=== PATIENT | male | born 1960 | race Caucasian/White ===

== ENCOUNTER 2016-10-05 00:13 | Emergency (ER) | payer OTHER ==
[~2016-10-05] VITALS: Ht 177.8 cm; Wt 110.9 kg
[2016-10-05 00:15] VITALS: BP 138/85; TEMP 36.3; O2SAT 95; Ht 177.8 cm; Wt 110.9 kg
--- NOTE | 2016-10-05 00:47 | EMERGENCY ROOM VISIT NOTE ---
History Report prepared by Heather: Gregg Combs Under the Supervision of: Dr. Chung Rajan M.D. First contact with patient: 00:17 Chief Complaint: ALCOHOL OVERDOSE Stated Complaint: ALCOHOL OVERDOSE History of Present Illness The patient is a 55 year old male who presents to the Emergency Room with complaints of constant alcohol overdose occurring prior to arrival. The patient was at [employer] earlier drinking alcohol, and he was intoxicated, and they called the police. They did not take him to [facility], and they took him to the ED since he did not have a ride home. He states that he does not have any family close by. He states that he has a history of hypertension, and he takes lisinopril. Additionally he occasionally smokes a pipe. History is limited secondary to alcohol intoxication. Source of History: patient History Limited By: intoxication Onset: prior to arrival Position: other (global) Quality: other (alcohol intoxication) Timing: constant Review of Systems See HPI for pertinent positives & negatives. A total of 10 systems reviewed and were otherwise negative. Past Medical & Surgical Medical Problems: (1) Hypertension Social History Smoking Status: Light Tobacco Smoker Marital Status: Occupation Status: employed Current/Historical Medications No Active Prescriptions or Reported Meds Allergies Coded Allergies: No Known Allergies (Unverified , 10/05/16) Physical Exam Vital Signs Date Time Temp Pulse Resp B/P (MAP) Pulse Ox O2 Delivery O2 Flow Rate FiO2 10/05/16 01:15 109 10/05/16 00:15 36.3 102 20 138/85 95 Room Air Physical Exam GENERAL: Patient is moderately intoxicated. Smells of alcohol. Well appearing and in no acute distress. HEAD: No evidence of Trauma. AT/NC EYES: Injected conjunctiva. Normal EOM. Pupils equal/reactive. ENT: Mucous membranes moist, no nasal congestion, . NECK: No step-offs, no adenopathy, no meningismus, trachea is midline. LUNGS: No dyspnea. Clear to auscultation and equal bilaterally. No wheeze, no rhonchi. HEART: Regular rate and rhythm. No murmurs, rubs, gallops appreciated. ABDOMEN: Soft, nontender, bowel sounds positive, no masses appreciated, no peritonitis. BACK: No midline tenderness, no CVA tenderness EXTREMITIES: Normal motion all extremities, no cyanosis, no edema. NEUROLOGIC: Intoxicated. Alert, oriented nut slurred speech and poor memory of the night's events. No acute motor or sensory deficits, no focal weakness, cranial nerves grossly intact. SKIN: No rash, no jaundice, no diaphoresis. Medical Decision & Procedures Laboratory Results 10/05/16 00:28 Test 10/05/16 00:28 Anion Gap 8.0 mmol/L (3-11) Est Creatinine Clear Calc Drug Dose 127.0 ml/min Estimated GFR () 115.1 Estimated GFR (Non- 99.4 BUN/Creatinine Ratio 6.8 (10-20) Calcium Level 8.3 mg/dl (8.5-10.1) Ethyl Alcohol mg/dL 374.0 mg/dl (0-3) Laboratory results as reviewed by me. ED Course 0017: The patient was evaluated in room A2. A complete history and physical exam was performed. 0114: I reevaluated the patient, and he has a sober friend there who wishes to take the patient home. The patient will be discharged home. Medical Decision Differential: Alcohol Intoxication, Drug Intoxication, Electrolyte Abnormality, Trauma, Intracranial Event, Toxicological, Excited Delirium, Serotonin Syndrome , amongst other pathologies entertained. 55 yr old intoxicated male brought in by EMS after being intoxicated at local bar. Patient with no evidence nor history for trauma. Protecting airway and breathing comfortably throughout ED stay. EtOH positive. He is too intoxicated to take taxi home per ED protocol. His friend Kraig arrived who appeared sober and accepted resposibility for Mr Nath. He was very much aware that Mr Nath was intoxicated and that his alcohol level is too high to operate a vehicle. He states he will take him home and have him go to bed. I made very clear to him (in front of nursing) patient is not to be driving. Medication Reconcilliation Current Medication List: was personally reviewed by me Blood Pressure Screening Patient's blood pressure: Elevated blood pressure (mild) Blood pressure disposition: Did not require urgent referral Impression Primary Impression: Alcohol abuse Additional Impression: Alcohol intoxication Scribe Attestation The scribe's documentation has been prepared under my direction and personally reviewed by me in its entirety. I confirm that the note above accurately reflects all work, treatment, procedures, and medical decision making performed by me. Departure Information Dispostion Home / Self-Care Prescriptions No Active Prescriptions or Reported Meds Forms HOME CARE DOCUMENTATION FORM, IMPORTANT VISIT INFORMATION Patient Instructions Alcohol Intoxication - [facility], [facility] Problem Qualifiers
[2016-10-05 01:11] LABS: BUN/CREATININE RATIO 6.8 (10-20); CALCIUM 8.3 mg/dl (8.5-10.1); CREATININE 0.81 mg/dl (0.60-1.40); POTASSIUM 3.4 mmol/L (3.5-5.1)
[2016-10-05 01:15] VITALS: PULSE 109
== END 2016-10-05 01:18 | disposition home or self-care (01) ==
LOC: EDBD 00:13 → C.EDA 00:16
DX: F10.129 Alcohol abuse with intoxication, unspecified (principal); Y90.9 Presence of alcohol in blood, level not specified; I10 Essential (primary) hypertension; F17.200 Nicotine dependence, unspecified, uncomplicated

== ENCOUNTER → 2016-10-05 | Outpatient (CLI) | payer OTHER | END | disposition home or self-care (01) | LOC: C.LAB 02:24 | DX: Z02.83 Encounter for blood-alcohol and blood-drug test (principal) ==

== ENCOUNTER 2019-10-04 00:23 | Inpatient (IN) ==
[2019-10-04] MEDS ORDERED: PANTOprazole 40 MG in SYRINGE 0 ML IV ONE (00:44)
--- NOTE | 2019-10-04 00:51 | Emergency Department Note ---
History of Present Illness General Chief complaint: Abdominal Pain Stated complaint: STOMACH ISSUES Time Seen by Provider: 10/04/19 00:31 Source: patient Mode of arrival: ambulatory Limitations: no limitations History of Present Illness Provider complaint: black stool, heartburn Onset (ago): day(s) 1 Severity: moderate Pain Consistency: + constant Quality: + burning Relieved By: + none Exacerbated By: + none Associated symptoms: + loss of appetite; no chest pain, no fever/chills, no nausea/vomiting and no shortness of breath Treatments prior to arrival: none This is a 58-year-old male who presents from home due to concern for a black stool earlier this morning and "bad heartburn". Patient states last night he ate very hot wings, and had a little bit of mild heartburn. He states today he had burning throughout his abdomen. Throughout the day he took 2 Tagamet, as he has used that previously with heartburn. Patient states he did not have any heartburn up into his chest, had no other chest pain or trouble breathing, that all the burning was in his abdomen. Patient states his stool this morning was loose and black, no bright red blood. Patient denies any prior GI history. Patient denies ever having EGD or colonoscopy. Patient denies any recent illness, no fevers or chills. Patient denies any accompanying nausea or vomiting. Patient states he did have a fall 2 weeks ago and has been using [id number] Advil to help for pain. Patient states he occasionally does drink alcohol, states he typically saves it for "the weekends". Pt seen during a time of high acuity and national emergency pandemic while wearing PPE. Home Medications Home Medications Medication Instructions Recorded Confirmed Type No Known Home Medications 10/04/19 10/04/19 History Allergies Allergy/AdvReac Type Severity Reaction Status Date / Time No Known Allergies Allergy Unverified 10/04/19 00:46 Past Med/Surg History Social History Smoking Status: Unknown if ever smoked Hx Alcohol Use: Yes Alcohol type: beer Hx Substance Use: No Preferred Language: Grenadian Communication Ability: Effective Preparation Operator Required: No Beliefs That Will Affect Care: None marital status: / Current Living Situation: Alone Feels Safe at Home: Yes Review of Systems See HPI for pertinent positives & negatives. and A total of 10 systems reviewed and were otherwise negative Physical Exam Vital Signs Vital Signs - 24 hr 10/04/19 00:26 10/04/19 01:04 10/04/19 02:11 Temperature 36.9 C Temperature Source Oral Pulse Rate 114 H Pulse Rate [Apical] 101 H 101 H Respiratory Rate 18 18 14 Respiratory Effort / Characteristics Non-Labored Spontaneous Respiratory Depth Normal Blood Pressure 177/102 H Blood Pressure [Left Arm] 188/91 H 189/87 H Blood Pressure Mean 127 Blood Pressure Mean [Left Arm] 123 121 Blood Pressure Position Sitting Pulse Oximetry 99 97 98 Oxygen Delivery Method Room Air Room Air Room Air Sepsis Recent Fever Within 48 Hours No Sepsis New/Unexplained Change in Mental Status N/A Sepsis Action Taken by Nursing No Action Required GENERAL: alert, well appearing, well nourished, no distress, non-toxic EYE EXAM: normal conjunctiva, PERRL and EOM's grossly intact OROPHARYNX: no exudate, no erythema, lips, buccal mucosa, and tongue normal and mucous membranes are moist NECK: supple, no nuchal rigidity, no adenopathy, non-tender LUNGS: Clear to auscultation. Normal chest wall mechanics, no w/r/r HEART: no murmurs, S1 normal and S2 normal ABDOMEN: abdomen soft, non-tender, normo-active bowel sounds, no masses, no rebound or guarding. Dull to percussion. Umbilical hernia noted, nontender and reducible. RECTAL: No obvious external hemorrhoids or anal fissure. Rectal exam performed with nurse program advisor Lisa, melanotic stool noted which was heme positive on guaiac testing. BACK: Back is symmetrical on inspection and there is no deformity, no midline tenderness, no CVA tenderness. SKIN: no rashes and no bruising UPPER EXTREMITIES: upper extremities are grossly normal. FROM, nml pulses b/l. LOWER EXTREMITIES: No pitting edema. FROM, nml pulses b/l. NEURO EXAM: Normal sensorium, cranial nerves II-XII grossly intact, normal speech, no gross weakness of arms, no gross weakness of legs. Gross sensation intact. Patient slightly tremulous. Course Course 0230: Patient updated on results. Discussed abnormalities and labs and imaging and my concerns. Patient in agreement with plan for additional inpatient treatment. 0255: Case discussed with Dr. Mead. Administered Medications Sodium Chloride (Nss 1000ml) 1,000 mls @ 200 mls/hr IV .Q5H RONI Stop: 11/03/19 00:44 Last Admin: 10/04/19 08:39 Dose: 200 mls/hr Documented by: [id number] Infusion: 10/04/19 06:29 Dose: 0 mls/hr Documented by: [id number] Admin: 10/04/19 01:03 Dose: 200 mls/hr Documented by: [id number] Pantoprazole Sodium 40 mg/ (Dextrose) 100 mls @ 20 mls/hr IV Q5H RONI Stop: 11/03/19 02:29 Last Admin: 10/04/19 08:17 Dose: 8 mg/hr, 20 mls/hr Documented by: [id number] Infusion: 10/04/19 08:17 Dose: 8 mg/hr, 20 mls/hr Documented by: [id number] Admin: 10/04/19 03:53 Dose: 8 mg/hr, 20 mls/hr Documented by: [id number] Octreotide Acetate 500 mcg/ (Sodium Chloride) 105 mls @ 10 mls/hr IV .[id number] RONI Stop: 11/03/19 03:14 Last Admin: 10/04/19 03:43 Dose: 10 mls/hr Documented by: [id number] Thiamine HCl 100 mg/ Syringe 10 mls @ 2 mls/min IV QAM RONI Stop: 11/03/19 08:59 Last Admin: 10/04/19 08:39 Dose: 2 mls/min Documented by: [id number] Folic Acid 1 mg/ Syringe 10 mls @ 5 mls/min IV QAM ON LICENSE OF [facility] Stop: 11/03/19 08:59 Last Admin: 10/04/19 08:39 Dose: 5 mls/min Documented by: [id number] Ioversol (Optiray 320 100ml) 100 ml IV ONCE PRN PRN Reason: Interaction Checking Stop: 10/08/19 01:53 Last Admin: 10/04/19 01:54 Dose: 93 ml Documented by: [id number] Discontinued Medications Pantoprazole Sodium 40 mg/ (Syringe) 10 mls @ 5 mls/min IV NOW ONE Stop: 10/04/19 00:45 Last Admin: 10/04/19 01:11 Dose: 5 mls/min Documented by: [id number] Magnesium Sulfate/Dextrose (Magnesium Sulfate / D5w) 1 gm in 100 mls @ 100 mls/hr IV Q1H RONI Stop: 10/04/19 03:39 Last Infusion: 10/04/19 04:57 Dose: 0 mls/hr Documented by: [id number] Admin: 10/04/19 03:33 Dose: 100 mls/hr Documented by: [id number] Infusion: 10/04/19 03:32 Dose: 0 mls/hr Documented by: [id number] Admin: 10/04/19 02:32 Dose: 100 mls/hr Documented by: [id number] Multivitamins 10 ml/ Thiamine HCl 100 mg/ Folic Acid 1 mg/Sodium Chloride 1,011.2 mls @ 250 mls/hr IV .Q4H3M ONE Stop: 10/04/19 06:26 Last Infusion: 10/04/19 08:40 Dose: 0 mls/hr Documented by: [id number] Admin: 10/04/19 03:50 Dose: 250 mls/hr Documented by: [id number] Lorazepam (Ativan) 0.5 mg in 1 mls @ 1 mls/min IV NOW STA Stop: 10/04/19 02:25 Last Admin: 10/04/19 02:33 Dose: 1 mls/min Documented by: [id number] Phytonadione 10 mg/ Sodium (Chloride) 51 mls @ 102 mls/hr IV ONE ONE Stop: 10/04/19 03:43 Last Infusion: 10/04/19 04:11 Dose: 0 mls/hr Documented by: [id number] Admin: 10/04/19 03:34 Dose: 102 mls/hr Documented by: [id number] Piperacillin Sod/Tazobactam (Sod 4.5 gm/ Dextrose) 120 mls @ 200 mls/hr IV TODAY@0600 ON LICENSE OF [facility]; Protocol Stop: 10/04/19 06:35 Last Infusion: 10/04/19 06:30 Dose: 0 mls/hr Documented by: [id number] Admin: 10/04/19 05:49 Dose: 200 mls/hr Documented by: [id number] Metoprolol Tartrate (Lopressor) 5 mg IV NOW STA Stop: 10/04/19 03:26 Last Admin: 10/04/19 03:36 Dose: 5 mg Documented by: [id number] Octreotide Acetate (Sandostatin Bolus From Bag) 100 mcg IV ONE ONE Stop: 10/04/19 03:16 Last Admin: 10/04/19 04:56 Dose: 100 mcg Documented by: [id number] Critical Care Time Critical Care Time: Yes Total Critical Care Time: 42 Critical care of 42 min performed to assess and manage high likelihood of life- threatening GI bleed, involving labs and imaging performed with assessment to evaluate GI bleed diagnosis with frequent reassessment. This time includes bed side time, treatment discussions with patient/family/consultants, documentation time and excludes procedure time. Medical Decision Making Differential Diagnosis Differential diagnosis includes etiologies such as diverticulosis, AVM, coagulopathy, colitis, inflammatory bowel disease, malignancy, Caridad-Calixto tear, esophagitis, peptic ulcer disease, variceal bleed, gastritis, epistaxis, fissure, hemorrhoids, as well as others were entertained. Medical Records Attestation: I reviewed the patient's medical records. Home Medications Current Medication List: was personally reviewed by me Laboratory Data Attestation: I reviewed the patient's lab results. Result diagrams: 10/04/19 04:43 10/04/19 00:48 Lab Results 10/04/19 10/04/19 10/04/19 Range/Units 00:48 00:48 00:48 WBC 16.34 H (4.8-10.8) K/uL RBC 3.44 L (4.7-6.1) M/uL Hgb 12.1 L (14.0-18.0) g/dL Hct 34.2 L (42-52) % MCV 99.4 (80-100) fL MCH 35.2 H (25-34) pg MCHC 35.4 (32-36) g/dL RDW Std Deviation 53.3 H (36.4-46.3) fL RDW Coeff of Aleah 14.7 H (11.5-14.5) % Plt Count 106 L (130-400) K/uL MPV 10.0 (7.4-10.4) fL Immature Gran % (Auto) 0.2 % Neut % (Auto) 70.9 % Lymph % (Auto) 16.8 % [place] % (Auto) 11.8 % Eos % (Auto) 0.1 % Baso % (Auto) 0.2 % Neut # (Auto) 11.58 H (1.4-6.5) K/uL Lymph # (Auto) 2.74 (1.2-3.4) K/uL [place] # (Auto) 1.93 H (0.11-0.59) K/uL Eos # (Auto) 0.02 (0-0.5) K/uL Baso # (Auto) 0.03 (0-0.2) K/uL Immature Gran # (Auto) 0.04 H (0.00-0.02) K/uL PT 18.4 H (9.0-12.0) Seconds INR 1.8 H (0.9-1.1) Sodium (136-145) mmol/L Potassium (3.5-5.1) mmol/L Chloride (98-107) mmol/L Carbon Dioxide (21-32) mmol/L Anion Gap (3-11) BUN (7-18) mg/dl Creatinine (0.6-1.4) mg/dl Est Cr Clr Drug Dosing ml/min Est GFR ( Amer) Est GFR (Non-Af Amer) BUN/Creatinine Ratio (10-20) Glucose (70-99) mg/dl Osmolality (280-300) mOsm/kg Lactate (0.4-2.0) mmol/L Calcium (8.5-10.1) mg/dl Magnesium (1.8-2.4) mg/dl Total Bilirubin (0.2-1) mg/dl AST (15-37) U/L ALT (12-78) U/L Alkaline Phosphatase (45-117) U/L Troponin I (0-0.045) ng/ml Total Protein (6.4-8.2) gm/dl Albumin (3.4-5.0) gm/dl Globulin (2.5-4.0) gm/dl Albumin/Globulin Ratio (0.9-2) Lipase (73-393) U/L Blood Type O Positive Antibody Screen NEGATIVE 10/04/19 10/04/19 10/04/19 Range/Units 00:48 00:48 00:49 WBC (4.8-10.8) K/uL RBC (4.7-6.1) M/uL Hgb (14.0-18.0) g/dL Hct (42-52) % MCV (80-100) fL MCH (25-34) pg MCHC (32-36) g/dL RDW Std Deviation (36.4-46.3) fL RDW Coeff of Aleah (11.5-14.5) % Plt Count (130-400) K/uL MPV (7.4-10.4) fL Immature Gran % (Auto) % Neut % (Auto) % Lymph % (Auto) % [place] % (Auto) % Eos % (Auto) % Baso % (Auto) % Neut # (Auto) (1.4-6.5) K/uL Lymph # (Auto) (1.2-3.4) K/uL [place] # (Auto) (0.11-0.59) K/uL Eos # (Auto) (0-0.5) K/uL Baso # (Auto) (0-0.2) K/uL Immature Gran # (Auto) (0.00-0.02) K/uL PT (9.0-12.0) Seconds INR (0.9-1.1) Sodium 128 L (136-145) mmol/L Potassium 3.7 (3.5-5.1) mmol/L Chloride 95 L (98-107) mmol/L Carbon Dioxide 22 (21-32) mmol/L Anion Gap 11.0 (3-11) BUN 11 (7-18) mg/dl Creatinine 0.77 (0.6-1.4) mg/dl Est Cr Clr Drug Dosing 133.5 ml/min Est GFR ( Amer) 115.1 Est GFR (Non-Af Amer) 99.3 BUN/Creatinine Ratio 14.7 (10-20) Glucose 105 H (70-99) mg/dl Osmolality 267 L (280-300) mOsm/kg Lactate 3.7 H* (0.4-2.0) mmol/L Calcium 8.9 (8.5-10.1) mg/dl Magnesium 1.4 L (1.8-2.4) mg/dl Total Bilirubin 5.7 H (0.2-1) mg/dl AST 130 H (15-37) U/L ALT 73 (12-78) U/L Alkaline Phosphatase 130 H (45-117) U/L Troponin I 0.063 H* (0-0.045) ng/ml Total Protein 7.0 (6.4-8.2) gm/dl Albumin 2.6 L (3.4-5.0) gm/dl Globulin 4.4 H (2.5-4.0) gm/dl Albumin/Globulin Ratio 0.6 L (0.9-2) Lipase 64 L (73-393) U/L Blood Type Antibody Screen Imaging Data Radiologist's Impression: CT abdomen and pelvis with contrast: Lung bases: Left lower lobe anterior segment linear atelectasis and mild overlying the right hemidiaphragm. Mild left coronary calcification. Small hiatal hernia. Slightly heterogenous and perhaps cirrhotic appearance to the liver. Moderate surrounding ascites. Trace edema around the gallbladder wall may be secondary to underlying ascites. Negative for ductal dilatation. Moderate circumferential mucosal thickening of nondistended ascending colon. Consider hypoalbuminemia or colitis. Descending colon and sigmoid diverticulosis. Small periumbilical hernia with ascites extending into it. Radiologist: Gary Talbot MD ECG Data Attestation: I personally reviewed and interpreted this ECG as follows: Indication: + abdominal pain Rate (beats per minute): 103 Rhythm: + sinus tachycardia ECG Intervals/blocks: + Normal QRS and + Normal QT ECG ST segments: + Normal ST segments Blood Pressure Blood Pressure Findings: Elevated blood pressure Blood Pressure Disposition: further management by hospitalist SANDY Narrative Patient here with concern for possible GI bleed and recent abdominal discomfort. Patient found to have melanotic heme positive stool on bedside exam. Labs are drawn and sent including a type and screen, and lactic acid. Patient had no significant abdominal pain, heartburn or nausea during my exam. Patient able to answer all questions appropriately. Patient does admit to frequent alcohol use. I do not suspect acute alcohol intoxication while in the emergency room. Patient hypertensive here with her vital signs otherwise stable. H&H stable. Patient sent for CT imaging in addition. Patient found to be coagulopathic, thrombocytopenic, hyponatremic, with an elevated troponin. Patient's EKG did not reveal any acute or concerning changes and patient had no chest pain or shortness of breath during my evaluation. I suspect patient's lab abnormalities are likely due to ongoing alcohol abuse. Ascites and cirrhosis of the liver was noted on CT. Patient started on IV fluids, banana bag ordered, and additional magnesium repletion ordered. Patient initially given a Protonix bolus, and after additional labs resulted and was started on a Protonix drip. After discussion with the hospitalist, and octreotide drip was added in addition. An order was placed for continuous cardiac monitoring. The monitor shows a rate of 104 with sinus tachycardia rhythm. Impression & Plan GI bleed, Hypertension, Liver cirrhosis, Ascites due to alcoholic cirrhosis, Hypoalbuminemia, Hypomagnesemia, Coagulopathy, Hyponatremia, Alcohol abuse, E levated troponin Discharge Plan Visit Data *Final* Discharge Date/Time: 10/04/19 04:08 Chief Complaint: Abdominal Pain Stated Complaint: STOMACH ISSUES ED Provider: Katheryn Chaudhry Discharge Problem: GI bleed, Hypertension, Liver cirrhosis, Ascites due to alcoholic cirrhosis, Hypoalbuminemia, Hypomagnesemia, Coagulopathy, Hyponatremia, Alcohol abuse, Elevated troponin Patient Disposition: Admitted As Inpatient Discharge Instructions Interventions: ED Discharge Assessment Last Done: 10/04/19 04:08 Discharge Problem: GI bleed Qualifiers: GI bleed type/associated pathology: melena Qualified Code(s): K92.1 - Melena Hypertension Qualifiers: Hypertension type: essential hypertension Qualified Code(s): I10 - Essential (primary) hypertension Liver cirrhosis Qualifiers: Hepatic cirrhosis type: alcoholic cirrhosis Ascites presence: with ascites Qualified Code(s): K70.31 - Alcoholic cirrhosis of liver with ascites
[2019-10-04 00:59] LABS: Basophils # (auto) 0.03 K/uL (0-0.2); Basophils % (auto) 0.2 %; Eosinophils # (auto) 0.02 K/uL (0-0.5); Eosinophils % (auto) 0.1 %; Hematocrit (blood only) 34.2 % (42-52); Hemoglobin 12.1 g/dL (14.0-18.0); Immature Granulocytes # (auto) 0.04 K/uL (0.00-0.02); Immature Granulocytes % (auto) 0.2 %; Lymphocytes # (auto) 2.74 K/uL (1.2-3.4); Lymphocytes % (auto) 16.8 %; Mean Corpuscular Hemoglobin 35.2 pg (25-34); Mean Corpuscular Hgb Conc 35.4 g/dL (32-36); Mean Corpuscular Volume 99.4 fL (80-100); Monocytes # (auto) 1.93 K/uL (0.11-0.59); Monocytes % (auto) 11.8 %; Neutrophils # (auto) 11.58 K/uL (1.4-6.5); Neutrophils % (auto) 70.9 %; Platelet Count 106 K/uL (130-400); RDW Coefficient of Variation 14.7 % (11.5-14.5); RDW Standard Deviation 53.3 fL (36.4-46.3); Red Blood Count 3.44 M/uL (4.7-6.1); White Blood Count 16.34 K/uL (4.8-10.8)
[2019-10-04] MEDS: SODIUM CHLORIDE 0.9% 1000ML 1,000 ML IV SCH ×2 (01:03→08:39)
[2019-10-04 01:10] LABS: INR 1.8 (0.9-1.1); Prothrombin Time 18.4 Seconds (9.0-12.0)
[2019-10-04 01:26] LABS: Albumin Globulin Ratio 0.6 (0.9-2); Albumin Level 2.6 gm/dl (3.4-5.0); BUN Creatinine Ratio 14.7 (10-20); Bilirubin,Total 5.7 mg/dl (0.2-1); Calcium 8.9 mg/dl (8.5-10.1); Creatinine Clr Calc Pharmacy 133.5 ml/min; Est GFR (African American) 115.1; Est GFR (Non-African American) 99.3; Globulin 4.4 gm/dl (2.5-4.0); Magnesium 1.4 mg/dl (1.8-2.4); Potassium 3.7 mmol/L (3.5-5.1); Troponin I 0.063 ng/ml (0-0.045)
[2019-10-04] MEDS ORDERED: IOVERSOL 100ml IV PRN (01:54)
[2019-10-04] MEDS ORDERED: MULTI-VITAMIN INFUSION 10 ML, THIAMINE HCL 100 MG, FOLIC ACID 1 MG in SODIUM CHLORIDE 0... IV ONE (02:24)
[2019-10-04] MEDS ORDERED: LORazepam 0.5 MG/1 ML VIAL IV STA (02:24)
[2019-10-04] MEDS: MAGNESIUM SULFATE / D5W 1 GM/100 ML BAG IV SCH ×2 (02:32→03:33)
[2019-10-04] MEDS ORDERED: PHYTONADIONE 10 MG in SODIUM CHLORIDE 0.9% 50 ML IV ONE (03:14)
[2019-10-04] MEDS ORDERED: OCTREOTIDE BOLUS FROM BAG IV ONE (03:15)
[2019-10-04] MEDS ORDERED: METOPROLOL TARTRATE 1 MG/ML VIAL IV STA (03:25)
--- NOTE | 2019-10-04 03:25 | History & Physical Report ---
Date of Service October 04, 2019 Assessment & Plan (1) Upper GI bleeding: Upper GI bleeding- Secondary to use of Advil, with concerns regarding exacerbation by coagulopathy, and potential for esophageal and gastric varices associated with chronic alcohol intake. Place on Protonix drip and octreotide drip. NPO H&H every 6 hours. Zofran 4 mg IV every 6 hours as needed IV fluids Zosyn 4.5g IV q8h..for GI bleeding, and question of colitis on CT Consult gastroenterology. Present on Admission?: Yes (2) Liver cirrhosis: Alcoholic liver cirrhosis/ascites/anasarca- Banana bag. Follow serial laboratories Treat coagulopathy MELD score 20 9 Present on Admission?: Yes (3) Ascites due to alcoholic cirrhosis: See above Present on Admission?: Yes (4) Anasarca: See above Present on Admission?: Yes (5) Non-STEMI (non-ST elevated myocardial infarction): The patient will be admitted for serial cardiac enzymes, serial EKG's, cardiac rhythm monitoring and a 2-D echocardiogram with Dopplers. Present on Admission?: Yes (6) Hypoalbuminemia: Albumin 2.6 upon admission Present on Admission?: Yes (7) Thrombocytopenia: Platelets are 106 upon admission. Follow serially. Present on Admission?: Yes (8) Hypomagnesemia: Magnesium 1.4 upon admission. Has ordered 2 g of mag sulfate IV from the ED. We will follow serially Present on Admission?: Yes (9) Lactic acidosis: Lactic acid 3.7 upon admission. It will be repeated per protocol Present on Admission?: Yes (10) Coagulopathy: INR 1.8 upon admission. We will give vitamin K 10 mg IV x1, and repeat later on today. Present on Admission?: Yes (11) Hyponatremia: Sodium 128 upon admission. Add a serum osmolality May be secondary to volume overload, and/or HCTZ. Present on Admission?: Yes (12) Admitted to intensive care unit: Patient will be admitted to the ICU. Consult to bottle booth attendant Dr. Christina Present on Admission?: Yes (13) Hypertension: As an outpatient, the patient is on lisinopril 40 mg daily and HCTZ 25 mg daily, both of which will be held. Blood pressure in the ED is 191/106 and heart rate of 102. Given a single dose of Lopressor 5 mg IV, with follow-up 154/85 and heart rate 79. We will have Lopressor 5 mg IV every 4 hours PRN systolic blood pressure greater than 160 Present on Admission?: Yes History of Present Illness Chief Complaint: The patient presents to the emergency department with abdominal pain, and an episode of black stools earlier in the morning about 24 hours ago. Primary Care Provider: NO PCP The patient is a 58-year-old male with a past medical history of hypertension, who reports he injured his back a few weeks ago and has been taking Advil since that time for relief. He reports that yesterday morning about 24 hours ago, he went to the bathroom early in the morning, and had dark stools. He has not had an issue with dark stools in the past. He has not eaten since that time, and has not had a bowel movement since then. He reports that he saves his alcohol intake for the weekends, and typically drinks about 7 to 80 ounces of water a day. Allergies Allergy/AdvReac Type Severity Reaction Status Date / Time No Known Allergies Allergy Unverified 10/04/19 00:46 Home Medications Home Medications Medication Instructions Recorded Confirmed Type No Known Home Medications 10/04/19 10/04/19 History Past Med/Surg History Social History (Updated 10/04/19 @ 00:50 by Katheryn Chaudhry, ) Smoking Status: Never smoker Hx Alcohol Use: Yes Hx Substance Use: No marital status: / Feels Safe at Home: Yes Review of Systems Review of Systems: The patient denies chest pain, palpitations, shortness of breath, dyspnea on exertion, cough, lower extremity swelling, sore throat, fevers, chills, sweats, nausea, vomiting,blood in urine, dysuria, urinary frequency or urgency, lightheadedness, dizziness, headache, memory loss, loss of consciousness, rash, focal weakness, numbness or tingling in arms or legs, generalized arthralgias or myalgias, neck pain, or night sweats. The review of systems is otherwise negative other than for that already noted above, and at least 10 systems have been reviewed. Physical Exam Physical Exam: The patient is awake, alert and oriented 3, looks jittery, normocephalic and atraumatic, sitting upright in bed and in no acute distress. HEENT--PERRL, EOMI, mucous membranes and oropharynx normal. Neck--supple. No JVD. No bruits. Thyroid normal, trachea midline, no adenopathy. Heart--normal S1 and S2. No murmurs, rubs or gallops. Lungs--clear bilaterally, no respiratory distress, no accessory muscle use. Abdomen--normal bowel sounds and soft. Nontender. Moderately distended. Moderately tympanitic. Extremities--no cyanosis or clubbing. 2+ bilateral pretibial pitting edema. Dermatologic--normal skin turgor, normal color, no abnormal lymph nodes, no rash. Neurologic--cranial nerves II through XII grossly intact. Rheumatologic--normal range of motion. Psychiatric--normal affect. Results & Data Results & Data ([facility]) Vital Signs (Past 12 Hours) Vital Signs Temp Pulse Pulse Resp BP BP Pulse Ox 10/04/19 02:11 101 H 14 189/87 H 98 10/04/19 01:04 101 H 18 188/91 H 97 10/04/19 00:26 98.4 F 114 H 18 177/102 H 99 Laboratory Results Laboratory Results WBC 16.34 K/uL (4.8-10.8) H 10/04/19 00:48 RBC 3.44 M/uL (4.7-6.1) L 10/04/19 00:48 Hgb 12.1 g/dL (14.0-18.0) L 10/04/19 00:48 Hct 34.2 % (42-52) L 10/04/19 00:48 MCV 99.4 fL (80-100) 10/04/19 00:48 MCH 35.2 pg (25-34) H 10/04/19 00:48 MCHC 35.4 g/dL (32-36) 10/04/19 00:48 RDW Std Deviation 53.3 fL (36.4-46.3) H 10/04/19 00:48 RDW Coeff of Aleah 14.7 % (11.5-14.5) H 10/04/19 00:48 Plt Count 106 K/uL (130-400) L 10/04/19 00:48 MPV 10.0 fL (7.4-10.4) 10/04/19 00:48 Immature Gran % (Auto) 0.2 % 10/04/19 00:48 Neut % (Auto) 70.9 % 10/04/19 00:48 Lymph % (Auto) 16.8 % 10/04/19 00:48 [place] % (Auto) 11.8 % 10/04/19 00:48 Eos % (Auto) 0.1 % 10/04/19 00:48 Baso % (Auto) 0.2 % 10/04/19 00:48 Neut # (Auto) 11.58 K/uL (1.4-6.5) H 10/04/19 00:48 Lymph # (Auto) 2.74 K/uL (1.2-3.4) 10/04/19 00:48 [place] # (Auto) 1.93 K/uL (0.11-0.59) H 10/04/19 00:48 Eos # (Auto) 0.02 K/uL (0-0.5) 10/04/19 00:48 Baso # (Auto) 0.03 K/uL (0-0.2) 10/04/19 00:48 Immature Gran # (Auto) 0.04 K/uL (0.00-0.02) H 10/04/19 00:48 PT 18.4 Seconds (9.0-12.0) H 10/04/19 00:48 INR 1.8 (0.9-1.1) H 10/04/19 00:48 Sodium 128 mmol/L (136-145) L 10/04/19 00:48 Potassium 3.7 mmol/L (3.5-5.1) 10/04/19 00:48 Chloride 95 mmol/L (98-107) L 10/04/19 00:48 Carbon Dioxide 22 mmol/L (21-32) 10/04/19 00:48 Anion Gap 11.0 (3-11) 10/04/19 00:48 BUN 11 mg/dl (7-18) 10/04/19 00:48 Creatinine 0.77 mg/dl (0.6-1.4) 10/04/19 00:48 Est Cr Clr Drug Dosing 133.5 ml/min 10/04/19 00:48 Est GFR ( Amer) 115.1 10/04/19 00:48 Est GFR (Non-Af Amer) 99.3 10/04/19 00:48 BUN/Creatinine Ratio 14.7 (10-20) 10/04/19 00:48 Glucose 105 mg/dl (70-99) H 10/04/19 00:48 Lactate 3.7 mmol/L (0.4-2.0) H* 10/04/19 00:48 Calcium 8.9 mg/dl (8.5-10.1) 10/04/19 00:48 Magnesium 1.4 mg/dl (1.8-2.4) L 10/04/19 00:48 Total Bilirubin 5.7 mg/dl (0.2-1) H 10/04/19 00:48 AST 130 U/L (15-37) H 10/04/19 00:48 ALT 73 U/L (12-78) 10/04/19 00:48 Alkaline Phosphatase 130 U/L (45-117) H 10/04/19 00:48 Troponin I 0.063 ng/ml (0-0.045) H* 10/04/19 00:48 Total Protein 7.0 gm/dl (6.4-8.2) 10/04/19 00:48 Albumin 2.6 gm/dl (3.4-5.0) L 10/04/19 00:48 Globulin 4.4 gm/dl (2.5-4.0) H 10/04/19 00:48 Albumin/Globulin Ratio 0.6 (0.9-2) L 10/04/19 00:48 Lipase 64 U/L (73-393) L 10/04/19 00:48 Blood Type O Positive 10/04/19 00:48 Antibody Screen NEGATIVE 10/04/19 00:48 Diagnostic Findings [facility] Patient: AGGIE FALCON (Male) : 58 Status: ER Date: 10/04/19 02:03 Room #: History: DARK TARRY STOOL, PAIN ALL OVER ABD, BRUISE ON RIGHT POSTERIOR FLANK S/P FALL TWO WEEKS AGO Slices: [phone] Priors: Tech: Rafael Duffy @ [phone] Exams: CT ABDOMEN & PELVIS With Contrast Contrast: IV Amt: 93 ML OPTIRAY 320 Accession Numbers: [id number] Preliminary Findings Only See Final Report For Complete Findings CT ABDOMEN & PELVIS With Contrast: Lung bases: Left lower lobe anterior segment linear atelectasis and mild overlying the right hemidiaphragm. Mild left coronary calcification Small hiatal hernia Slightly heterogeneous and perhaps cirrhotic appearance to the liver. Moderate surrounding ascites. Trace edema around the gallbladder wall may be secondary to underlying ascites. Negative for ductal dilation. Moderate circumferential mucosal thickening of nondistended ascending colon. Consider hypoalbuminemia or colitis Descending colon and Sigmoid diverticulosis Small periumbilical hernia with ascites extending into it. Radiologist: Irvin Talbot MD Study ready at 02:05 and initial results transmitted at 02:15 *This report constitutes a preliminary interpretation only. Non-acute findings felt to be unrelated to the clinical presentation may not be discussed in this report. The study will be interpreted and a final report will be generated by the local Radiologist the following shift. To reach the hospital radiology department call [phone]. If a discrepancy is found between the preliminary and final interpretations of this study, please notify us via our Client Portal at [email or web address] under QA [email or web address].You can also fax this report with a description of the discrepancy, or include the final report, to our daytime fax number [phone].If faxing, please indicate the severity of discrepancy using one of the following categories: [ ] 1 - Agree/Informational [ ] 2 - Unlikely to Affect Management [ ] 3 - Possible Eventual Change of Management [ ] 4 - Probable Immediate Change of Management For all other patient related information, please fax us at [phone]. [id number] Code Status & VTE Plan Code Status Full code VTE Prophylaxis Plan VTE Prophylaxis will be ordered: Yes Critical Care Time Critical Care Time: Yes Total Critical Care Time: 45 Total critical care time was 45 minutes PG Care Time/CCT Total # of Minutes Spent Total Time Spent with Patient: Total time spent is greater than 50% in coordination of care (as documented) at patient's floor/unit and/or counseling patient: Critical Care Time: Yes Total Critical Care Time: 45 Coding Level of Care Code 82110 Initial Inpt Care Lvl 3 Diagnoses Upper GI bleeding K92.2 Liver cirrhosis K74.60 Ascites due to alcoholic cirrhosis K70.31 Anasarca R60.1 Non-STEMI (non-ST elevated myocardial infarction) I21.4 Hypoalbuminemia E88.09 Thrombocytopenia D69.6 Hypomagnesemia E83.42 Lactic acidosis E87.2 Coagulopathy D68.9 Hyponatremia E87.1 Admitted to intensive care unit Z78.9 Hypertension I10 Additional Codes Critical Care Time - Critical Care Time: Yes ([id number]) Time Spent (min) 45
[2019-10-04] MEDS: OCTREOTIDE ACETATE 500 MCG in 0.9 % SODIUM CHLORIDE 100 ML IV SCH ×3 (03:43→20:35)
[2019-10-04] MEDS: PANTOprazole 40 MG in DEXTROSE 5% 100 ML IV SCH ×5 (03:53→22:27)
[2019-10-04] MEDS ORDERED: METOPROLOL TARTRATE 1 MG/ML VIAL IV PRN (04:13)
[2019-10-04] MEDS ORDERED: PIPERACILL/TAZOBAC CONSULT ACTIVE PRN (04:21)
[2019-10-04] MEDS ORDERED: ALBUT/IPRATROP 3MG/0.5MG NEB 3 ML VIAL INH PRN (04:30)
[2019-10-04] MEDS ORDERED: ICU PROTOCOL FOR HYPERGLYCEMIA PRN (04:30)
[2019-10-04 05:06] LABS: Hematocrit (blood only) 32.4 % (42-52); Hemoglobin 11.5 g/dL (14.0-18.0)
[2019-10-04] MEDS ORDERED: PIPERACILLIN/TAZOBACTAM 4.5 GM in DEXTROSE 5% 100 ML IV SCH ×2 (06:00→12:00)
--- NOTE | 2019-10-04 06:24 | Critical Care Consultation ---
Date of Consultation October 04, 2019 Assessment & Plan (1) Admitted to intensive care unit: Reason Critically Ill: 58-year-old male with acute presentation of upper GI bleed with physical exam findings concerning for moderate progression of hepatic failure including significant ascites. NEURO - * CAM ICU: NEGATIVE * Likely alcohol abuse * AWSS precautions. * Ativan as needed CARDIAC/VASCULAR - * NSTEMI: * Of uncertain ideology at this point. * EKG without acute findings. * Trend troponins. * A.m. echo * EKG: Normal sinus rhythm at [address] or T wave changes. QTc 458 ms. * Monitor on telemetry. RESPIRATORY - * No history of pulmonary disease. * Saturating well on room air. GI/NUTRITION - * Presumed upper GI bleed with melanotic stools: * Currently on Protonix and octreotide drips. * SBP prophylaxis with Zosyn. * Will add gallbladder/liver ultrasound for further assessment. * Appreciate GI consult. RENAL/LYTES - * Hyponatremia: * ?EtOH induced. * ??Beer potomania * Receiving IVF. * Trend Lytes. - * No concerns at this time. * Strict I&Os. ENDO - * No h/o DM or thyroid Dz. * BSGs per unit protocol. ISS --> gtt per unit policy. HEME - * Stable H&H * Trend in the presumed UGIB pt. * Thrombocytopenia: * Likely 2/2 bone marrow suppression 2/2 chronic EtOH abuse. ID - * SBP Prophylaxis: * Zosyn -- w/ regard to concerns for ??colitis. * With lack of other GI s/s to suggest colitis, would likely be fine to change to Rocephin. * Trend Lactate. LINES/IV ACCESS - * PIVs x2 DVT PROPHYLAXIS - * Hold 2/2 UGIB * SCDs Thank you for allowing us to participate in the care of this patient. Please refer to my attending physician's documentation for any further recommendations. (2) Upper GI bleeding: (3) Liver cirrhosis: (4) Non-STEMI (non-ST elevated myocardial infarction): (5) Anasarca: (6) Thrombocytopenia: (7) Hypomagnesemia: (8) Lactic acidosis: (9) Coagulopathy: (10) Hyponatremia: (11) Hypoalbuminemia: Supervising Physician Co-Signing Physician Notes I have personally evaluated and examined this patient. I agree with assessment and plan of Uzma Hayden PA-C. Please refer to subsequent supplemental documentation for additional evaluation and management. History of Present Illness Attending Physician: Rigoberto Mead MD History of Present Illness Patient is a 58-year-old male without reported significant past medical history who presented to the emergency department early this morning with complaints of recent centralized abdominal pain after eating spicy wings. He reports that a few hours afterwards, he had black/tarry stools. He states that these have seemed to improve, however he was concerned that he may be bleeding internally. He has never experienced this in the past. He does not take daily medications, however after sustaining a fall approximately 1 week ago, he has been taking ibuprofen daily which has seemed to help with his back pain. Patient denies any ongoing abdominal pain at this time rated his discomfort is 0/10. Patient denies any headaches, dizziness, lightheadedness, chest pain, palpitations, shortness of breath, pleuritic pain, nausea, vomiting, hematemesis, hematuria, or dysuria. Patient admits to weekend alcohol use, but does not specify quantity. He denies daily alcohol abuse. He is uncertain of past medical history of fatty liver disease or hepatitis risk factors. Allergies Allergy/AdvReac Type Severity Reaction Status Date / Time No Known Allergies Allergy Unverified 10/04/19 00:46 Home Medications Home Medications Medication Instructions Recorded Confirmed Type No Known Home Medications 10/04/19 10/04/19 History Patient History Family History (Updated 10/04/19 @ 11:24 by LAURA Paige) Family/Other No problems noted. Denies family history of Liver disease Social History Smoking Status: Unknown if ever smoked Hx Alcohol Use: Yes Alcohol type: beer Hx Substance Use: No Preferred Language: Pry[place] Communication Ability: Effective Door Person Required: No Beliefs That Will Affect Care: None marital status: / Current Living Situation: Alone Feels Safe at Home: Yes Review of Systems Review of Systems: A complete 10 point review of systems was reviewed with the patient with pertinent positives and negatives as per history of present illness. All else were negative. Physical Exam Physical Exam: VITAL SIGNS - Vital signs and nursing notes were reviewed. GENERAL - 58-year-old male appearing his stated age who is in no acute distress. Communicates well with provider and answers questions appropriately. HEAD - NC/AT. EYES - PERRL with EOMI bilaterally. Sclera anicteric. Palpebral conjunctiva pink and moist with no injection noted. EARS - No deformities of external structures noted on gross examination bilaterally. NOSE - Midline and without cyanosis. MOUTH/OROPHARYNX - Without perioral cyanosis. NECK - Neck with FROM. No nuchal rigidity. LUNGS - Chest wall symmetric without accessory muscle use, intercostals retractions, or central cyanosis. Normal vesicular breath sounds CTA B/L. No wheezes, rales, or rhonchi appreciated. CARDIAC - RRR with S1/S2. No murmur, rubs, or gallops appreciated. ABDOMEN - Abdominal contour protuberant without pulsations or visible masses. BS normoactive all four quadrants. No tenderness to palpation appreciated throughout. No guarding. No Rebound Tenderness. Ascites noted. EXTREMITIES - No clubbing or peripheral cyanosis. Moderate pretibial edema present. +3/5 radial and dorsalis pedis pulses palpated throughout. +5/5 strength noted in UE/LE bilaterally. NEUROLOGIC - Cranial nerves II through XII grossly intact. Sensory intact to light touch throughout. PSYCH - A&Ox3 and cooperates fully with examiner. Pt is very pleasant and interacts well with examiner. Results & Data Results & Data ([facility]) Vital Signs (Past 12 Hours) Vital Signs Temp Pulse Pulse Resp BP BP BP 10/04/19 04:41 37.1 C 86 16 152/86 H 10/04/19 03:49 79 15 154/85 H 10/04/19 03:36 102 H 199/106 H 10/04/19 02:11 101 H 14 189/87 H 10/04/19 01:04 101 H 18 188/91 H 10/04/19 00:26 36.9 C 114 H 18 177/102 H Pulse Ox 10/04/19 04:41 98 10/04/19 03:49 97 10/04/19 03:36 10/04/19 02:11 98 10/04/19 01:04 97 10/04/19 00:26 99 Coding Level of Care Code 52631 Inpt Consult Level 5 Diagnoses Admitted to intensive care unit Z78.9 Upper GI bleeding K92.2 Liver cirrhosis K74.60 Non-STEMI (non-ST elevated myocardial infarction) I21.4 Anasarca R60.1 Thrombocytopenia D69.6 Hypomagnesemia E83.42 Lactic acidosis E87.2 Coagulopathy D68.9 Hyponatremia E87.1 Hypoalbuminemia E88.09 Time Spent (min) 35
[2019-10-04] MEDS ORDERED: LORazepam 2 MG/4 ML VIAL IV PRN (06:26)
[2019-10-04] MEDS ORDERED: LORazepam 1 MG/2 ML VIAL IV PRN (06:26)
[2019-10-04] MEDS ORDERED: ATIVAN IV ALCOHOL WITHDRAWL IV PRN (06:26)
[2019-10-04] MEDS ORDERED: LORazepam 3 MG/6 ML VIAL IV PRN (06:26)
--- NOTE | 2019-10-04 08:06 | CT Scan Report ---
CT SCAN OF THE ABDOMEN AND PELVIS WITH IV CONTRAST CLINICAL HISTORY: Generalized abdominal pain. Melanotic stool. COMPARISON STUDY: No priors. TECHNIQUE: Following the IV administration of 93 cc of Optiray 320, CT scan of the abdomen and pelvi s is performed from the lung bases to the proximal femora. Images are reviewed in the axial, sagittal , and coronal planes. IV contrast was administered without complication. A dose lowering technique wa s utilized adhering to the principles of ALARA. The examination is degraded by motion artifact. CT DOSE: 1591.84 mGy.cm FINDINGS: Lung bases: The heart is normal in size and without pericardial effusion. The coronary arteries are d ensely calcified. There is bibasilar scarring/atelectasis. Calcified granulomas are noted in the righ t middle lobe. No airspace consolidation is seen typical for pneumonia and no pleural effusion is raquel ntified. There is a small hiatal hernia. Esophageal varices are noted. Liver: The contrast-enhanced liver is cirrhotic in morphology and heterogeneous in attenuation. There is hypertrophy of the left lobe and caudate as well as nodularity of the surface contour. There is n o intrahepatic biliary ductal dilatation. The hepatic veins and portal veins are patent. There is rec analization of the periumbilical vein. Gallbladder: Gallbladder wall thickening is nonspecific. Spleen: The spleen is mildly enlarged measuring 14 cm in length. Pancreas: Mildly atrophic and grossly unremarkable. Adrenal glands: Unremarkable. Kidneys: The contrast enhanced kidneys are normal in size and without hydronephrosis. The kidneys enh ance symmetrically. Abdominal vasculature: The abdominal aorta is normal in course and caliber noting mild to moderate at herosclerotic calcification. Bowel: There is moderate to advanced colonic diverticulosis without CT evidence of acute diverticulit is. No bowel obstruction is seen. Wall thickening is noted in the right colon. The appendix is well- visualized and normal. Peritoneum: There is a small to moderate volume of abdominopelvic ascites. No intraperitoneal free ai r is seen. There is a fat and ascitic fluid containing umbilical hernia, as well as ascitic fluid con taining supra umbilical hernia. Lymphadenopathy: None. Pelvic viscera: There is median lobe hypertrophy of the prostate gland. The bladder wall is thickened and trabeculated indicating chronic outlet obstruction. Skeletal structures: There is mild lumbosacral spondylosis. No lytic or blastic lesions are seen. IMPRESSION: 1. The liver is cirrhotic in morphology and heterogeneous in attenuation. 2. Mild splenomegaly, a small to moderate volume of abdominopelvic ascites, esophageal varices, and r ecanalization of the periumbilical vein indicate portal hypertension. 3. Gallbladder wall thickening is nonspecific and likely related to cirrhosis and ascites. Clinical c orrelation will be required. 4. Wall thickening of the right colon is nonspecific and likely related to portal colopathy. Again, c linical correlation will be required. 5. Moderate to advanced colonic diverticulosis without CT evidence of acute diverticulitis. 6. The coronary arteries are densely calcified. 7. Additional findings as above. ACT 112: Negative or not required by law. Electronically signed by: Carmelo Cook M.D. 10/04/2019 8:05 AM
[2019-10-04] MEDS: FOLIC ACID 1 MG in SYRINGE 9.8 ML IV SCH (08:39)
[2019-10-04] MEDS: THIAMINE HCL 100 MG in SYRINGE 9 ML IV SCH (08:39)
[2019-10-04 09:35] LABS: Hepatitis B Surface Antigen Neg (Neg)
--- NOTE | 2019-10-04 09:56 | XCELERA ---
[id number]
[2019-10-04 09:57] LABS: Hepatitis C IgG 13Yrs+Old_Rflx Neg (Neg)
--- NOTE | 2019-10-04 10:40 | Cardiology Consultation ---
Date of Consultation October 04, 2019 History of Present Illness Attending Physician: Jesse Merida DO Allergies Allergy/AdvReac Type Severity Reaction Status Date / Time No Known Allergies Allergy Unverified 10/04/19 00:46 Home Medications Home Medications Medication Instructions Recorded Confirmed Type No Known Home Medications 10/04/19 10/04/19 History Patient History Social History Smoking Status: Unknown if ever smoked Hx Alcohol Use: Yes Alcohol type: beer Hx Substance Use: No Preferred Language: Malay Communication Ability: Effective Energy Director Required: No Beliefs That Will Affect Care: None marital status: / Current Living Situation: Alone Feels Safe at Home: Yes Results & Data ([facility]) Vital Signs (Past 12 Hours) Vital Signs Temp Pulse Pulse Resp BP BP BP 10/04/19 10:31 87 24 120/81 10/04/19 09:31 85 18 106/79 10/04/19 08:31 82 16 136/76 10/04/19 08:00 36.4 C L 10/04/19 07:31 88 21 128/71 10/04/19 06:31 86 16 133/77 10/04/19 05:31 88 14 136/80 10/04/19 04:41 37.1 C 86 16 152/86 H 10/04/19 04:31 82 19 152/86 H 10/04/19 04:00 78 16 141/89 H 10/04/19 03:49 78 79 19 154/85 H 154/85 H 10/04/19 03:36 102 H 199/106 H 10/04/19 02:11 101 H 14 189/87 H 10/04/19 01:04 101 H 18 188/91 H 10/04/19 00:26 36.9 C 114 H 18 177/102 H Pulse Ox 10/04/19 10:31 95 10/04/19 09:31 96 10/04/19 08:31 95 10/04/19 08:00 10/04/19 07:31 94 10/04/19 06:31 95 10/04/19 05:31 97 10/04/19 04:41 98 10/04/19 04:31 98 10/04/19 04:00 95 10/04/19 03:49 98 10/04/19 03:36 10/04/19 02:11 98 10/04/19 01:04 97 10/04/19 00:26 99 PG Care Time/CCT Total # of Minutes Spent Total Time Spent with Patient: Total time spent is greater than 50% in coordination of care (as documented) at patient's floor/unit and/or counseling patient: Coding
--- NOTE | 2019-10-04 10:59 | Gastrointestinal Consultation ---
Date of Consultation October 04, 2019 Assessment & Plan (1) GI bleed: (2) Alcohol abuse: (3) Coagulopathy: (4) Liver cirrhosis: 1. NPO for now. 2. Continue PPI/Octreotide GGTs and abx prophylaxis as ordered. 3. Continue ETOH withdrawal protocol. 4. EGD today with Dr. Maurice in the OR for further evaluation of possible UGIB. 5. INR 1.8. If worsening coagulopathy and/or acute HE develops, recommend transfer to tertiary center with OLT capabilities. 6. Counseled patient on risks on ongoing ETOH/NSAID use in the setting decompensated cirrhosis. 7. Await EGD and make further recommendations pending results of testing and clinical course. Supervising Physician Co-Signing Physician Notes I personally evaluated the patient and agree with the findings as documented by LAURA Kirk Exam: abd: soft, nt, nd, obese proceed with EGD, c/w ppi and octreotide drips risks/benefits and procedure discussed with patient, who agrees to proceed History of Present Illness Reason for Consultation: Cirrhosis, GIB Requesting Physician: Dr. Mead Attending Physician: Jesse Merida DO History of Present Illness Patient is a 58 year-old male with a self reported history of hypertension admitted after two days of abdominal pain which began after eating hot wings. He states he became concerned as he was passing dark stools. The melena follows a recent history of heavy NSAID use for low back pain. Upon admission, he was found to be anemic, coagulopathic and with thrombocytopenia. +Hyponatremia, hyperbilirubinemia and elevated AST/ALP at 130 and and 130 respectively. TB 5.7. Lipase normal at 64. INR 1.8. CT a/p with cirrhotic change and associated ascites and esophageal varices. He has been placed on PPI and Octreotide GGT for concern over possible variceal bleed as well as antibiotic coverage. Past medical history is significant for alcohol use. He is very vague about consumption but reports weekly use, 1-2 times during the week and on weekends. States "a case a beer can last me a month" but then also confirms that he can consume up to 12 beers on a single weekend. States his alcohol use had increased with the passing of his to lung cancer. He denies any IV drug use, blood transfusion prior to 1991 or history of fatty liver disease. No family history of chronic liver disease. Hepatitis serologies are pending. He denies any routine medical care and has never been evaluated by gastroenterology in the past. Denies any pruritus, dark urine, acholic stools, jaundice, or fatigue. No bright red rectal bleeding or hematemesis. Allergies Allergy/AdvReac Type Severity Reaction Status Date / Time No Known Allergies Allergy Unverified 10/04/19 00:46 Home Medications Home Medications Medication Instructions Recorded Confirmed Type No Known Home Medications 10/04/19 10/04/19 History Patient History Family History (Updated 10/04/19 @ 11:24 by LAURA Paige) Family/Other No problems noted. 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 Beliefs That Will Affect Care: None marital status: / Current Living Situation: Alone Feels Safe at Home: Yes Review of Systems Constitutional: no fever and no chills Eyes: no problem reported Ear, Nose, Mouth, Throat: no dysphagia and no pain with swallowing Respiratory: no cough and no dyspnea Cardiovascular: no chest pain and no palpitations Gastrointestinal: as per Subjective / HPI Genitourinary: + as per Subjective / HPI Musculoskeletal: as per Subjective / HPI, + back pain and + swelling Integumentary: as per Subjective / HPI Neurologic: no unsteadiness, no dizziness and no confusion Psychiatric: as per Subjective / HPI Hematologic / Lymphatic: no easy bleeding and no easy bruising Physical Exam Constitutional: WD/WN, vitals as above well developed and well nourished Eyes: scleral icterus ENMT: Ears: no hearing impairment Neck: normal visual inspection Respiratory: normal respiratory effort, lungs clear to auscultation Cardiovascular: Rate/Rhythm: regular rate and regular rhythm Heart Sounds: no murmur Gastrointestinal (Abdomen): Inspection/Auscultation: normal bowel sounds Percussion/Palpation: + abdomen firm; abdomen nontender Musculoskeletal: Extremities: + lower leg abnormality Bilateral (edema) Skin: + jaundice Psychiatric: A+Ox3, euthymic affect Results & Data ([facility]) Vital Signs (Past 12 Hours) Vital Signs Temp Pulse Pulse Resp BP BP BP 10/04/19 10:31 87 24 120/81 10/04/19 09:31 85 18 106/79 10/04/19 08:31 82 16 136/76 10/04/19 08:00 36.4 C L 10/04/19 07:31 88 21 128/71 10/04/19 06:31 86 16 133/77 10/04/19 05:31 88 14 136/80 10/04/19 04:41 37.1 C 86 16 152/86 H 10/04/19 04:31 82 19 152/86 H 10/04/19 04:00 78 16 141/89 H 10/04/19 03:49 78 79 19 154/85 H 154/85 H 10/04/19 03:36 102 H 199/106 H 10/04/19 02:11 101 H 14 189/87 H 10/04/19 01:04 101 H 18 188/91 H 10/04/19 00:26 36.9 C 114 H 18 177/102 H Pulse Ox 10/04/19 10:31 95 10/04/19 09:31 96 10/04/19 08:31 95 10/04/19 08:00 10/04/19 07:31 94 10/04/19 06:31 95 10/04/19 05:31 97 10/04/19 04:41 98 10/04/19 04:31 98 10/04/19 04:00 95 10/04/19 03:49 98 10/04/19 03:36 10/04/19 02:11 98 10/04/19 01:04 97 10/04/19 00:26 99 PG Care Time/CCT Total # of Minutes Spent Total Time Spent with Patient: Total time spent is greater than 50% in coordination of care (as documented) at patient's floor/unit and/or counseling patient: Coding Level of Care Code 22886 Inpt Consult Level 5 Diagnoses GI bleed K92.1 GI bleed type/associated pathology: melena Alcohol abuse F10.10 Coagulopathy D68.9 Liver cirrhosis K70.31 Ascites presence: with ascites Hepatic cirrhosis type: alcoholic cirrhosis (1) GI bleed GI bleed type/associated pathology: melena Qualified Code(s): K92.1 - Melena (2) Liver cirrhosis Ascites presence: with ascites Hepatic cirrhosis type: alcoholic cirrhosis Qualified Code(s): K70.31 - Alcoholic cirrhosis of liver with ascites
[2019-10-04] MEDS ORDERED: POTASSIUM CHLORIDE 10 MEQ TABCR PO STA (12:04)
--- NOTE | 2019-10-04 12:16 | Critical Care Progress Note ---
Date of Service October 04, 2019 Assessment & Plan (1) GI bleed: Plan updates: Neuro * Alcohol Withdrawal * AWSS protocol * Pt noncomittal about frequency and quantity of drinking but does drink several beers on weekends and occasionally during the week * hx of heavy drinking in 2016 when of lung cancer Cardiac * Hx HTN, no acute concerns. Not medically controlled. Pulm * Breathing well on room air, no acute concerns GI * Upper GIB * Scope today with GI to eval for esophageal varices/gastric ulceration/gastritis * Cirrhosis * MELD score 26 * Child GILLIS class C * CT abdomen showing cirrhotic liver, moderate ascites * RUQ US 1. Cirrhotic liver disease with small volume of abdominal ascites. 2. Mild gallbladder wall thickening is likely secondary to cirrhotic liver. No cholelithiasis identified. 3. No biliary ductal dilation. Renal * Hyponatremia * likely secondary to beer potomania/worsening cirrhosis Heme * Hg stable ID * Coverage for SBP changed from Zosyn to rocephin given lack of findings for cholecystitis (2) Alcohol abuse: (3) Elevated troponin: (4) Hyponatremia: (5) Coagulopathy: (6) Hypomagnesemia: (7) Thrombocytopenia: (8) Hypoalbuminemia: (9) Ascites due to alcoholic cirrhosis: Admission and Anticipated Discharge Date Admission Date: October 04, 2019 Supervising Physician Co-Signing Physician Notes Dr. Wilkerson was resident physician during care of patient. I separately evaluated patient for min portions of the history and the exam. I was present during the critical portion of medical decision making, and I discussed the case with the resident. I generally agree with the findings and plan. Patient has remained hemodynamically stable, plan at this time is to have the patient undergo EGD in the OR given high risk and concern for varices. Patient was discussed on multidisciplinary rounds. Subjective 58 yo M admitted overnight for UGIB, cirrhosis with hx alcohol abuse. Review of Systems Constitutional: no fever, no chills, no body aches and no fatigue Respiratory: no cough and no dyspnea Cardiovascular: no chest pain, no dyspnea and no edema Gastrointestinal: + heartburn and + melena; no abdominal pain, no bloating, no nausea, no vomiting, no coffee ground emesis, no constipation, no diarrhea/loose stools and no blood in stools Physical Exam Physical Exam: Constitutional: obese, in no apparent distress, sitting comfortably in bed. Eyes: EOMI, pupils equal and reactive bilaterally, no scleral icterus Cardiac: RRR, no murmurs, gallops or rubs. Normal S1, S2 Pulm: CTA BL, no wheezes, rhonchi, crackles or rubs, moving air well throughout both lungs Abd: soft, nontender, distended, normal bowel sounds, no rebound or guarding, tympanic to percussion Extremities: 2+ peripheral pulses, no edema Neuro: no focal deficits, moving all 4 limbs, A&Ox3 Results & Data Results & Data ([facility]) Vital Signs (Past 12 Hours) Vital Signs Temp Pulse Pulse Resp BP BP BP 10/04/19 10:31 87 24 120/81 10/04/19 09:31 85 18 106/79 10/04/19 08:31 82 16 136/76 10/04/19 08:00 36.4 C L 10/04/19 07:31 88 21 128/71 10/04/19 06:31 86 16 133/77 10/04/19 05:31 88 14 136/80 10/04/19 04:41 37.1 C 86 16 152/86 H 10/04/19 04:31 82 19 152/86 H 10/04/19 04:00 78 16 141/89 H 10/04/19 03:49 78 79 19 154/85 H 154/85 H 10/04/19 03:36 102 H 199/106 H 10/04/19 02:11 101 H 14 189/87 H 10/04/19 01:04 101 H 18 188/91 H 10/04/19 00:26 36.9 C 114 H 18 177/102 H Pulse Ox 10/04/19 10:31 95 10/04/19 09:31 96 10/04/19 08:31 95 10/04/19 08:00 10/04/19 07:31 94 10/04/19 06:31 95 10/04/19 05:31 97 10/04/19 04:41 98 10/04/19 04:31 98 10/04/19 04:00 95 10/04/19 03:49 98 10/04/19 03:36 10/04/19 02:11 98 10/04/19 01:04 97 10/04/19 00:26 99 Critical Care Time Total Critical Care Time: 20 I have personally spent 20 minutes of critical care time in the direct management of this patient. This is a life/limb threatening event. This includes time spent evaluating patient, direct bedside care, chart review, placing orders, interpretation of diagnostic studies, discussion with consultants, patient, and/or family members regarding treatment decisions, as well as other required patient management activities. This time is exclusive of all separately billable procedures, and teaching time and separate from and in addition to any other critical care service time. (1) GI bleed GI bleed type/associated pathology: melena Qualified Code(s): K92.1 - Melena
--- NOTE | 2019-10-04 12:38 | Electrocardiogram Report ---
Test Reason : Blood Pressure : / mmHG Vent. Rate : 103 BPM Atrial Rate : 103 BPM P-R Int : 156 ms QRS Dur : 084 ms QT Int : 350 ms P-R-T Axes : 051 -27 044 degrees QTc Int : 458 ms Sinus tachycardia Possible Left atrial enlargement Left ventricular hypertrophy Abnormal ECG No previous ECGs available Confirmed by Elvin Winters ([id number]) on 10/04/2019 12:38:11 PM Referred By: REFERRED SELF Confirmed By:Elvin Winters
[2019-10-04] MEDS: cefTRIAXone SODIUM 2,000 MG in DEXTROSE 5% 50 ML IV SCH (12:52)
[2019-10-04] MEDS: NSS + 20MEQ KCL 20 MEQ/1,000 ML BAG IV SCH (12:53)
[2019-10-04 13:13] LABS: Hematocrit (blood only) 30.3 % (42-52); Hemoglobin 10.6 g/dL (14.0-18.0); Mean Corpuscular Hemoglobin 34.6 pg (25-34); RDW Coefficient of Variation 14.8 % (11.5-14.5); RDW Standard Deviation 53.4 fL (36.4-46.3); Red Blood Count 3.06 M/uL (4.7-6.1); White Blood Count 10.52 K/uL (4.8-10.8)
[2019-10-04 13:30] LABS: INR 1.8 (0.9-1.1); Prothrombin Time 18.6 Seconds (9.0-12.0)
[2019-10-04 13:34] LABS: Basophils # (auto) 0.03 K/uL (0-0.2); Basophils % (auto) 0.3 %; Eosinophils # (auto) 0.06 K/uL (0-0.5); Eosinophils % (auto) 0.6 %; Immature Granulocytes # (auto) 0.03 K/uL (0.00-0.02); Immature Granulocytes % (auto) 0.3 %; Lymphocytes # (auto) 2.31 K/uL (1.2-3.4); Mean Platelet Volume 9.8 fL (7.4-10.4); Monocytes # (auto) 1.02 K/uL (0.11-0.59); Monocytes % (auto) 9.7 %; Neutrophils # (auto) 7.07 K/uL (1.4-6.5); Neutrophils % (auto) 67.1 %; Platelet Count 83 K/uL (130-400); Platelet Estimate Decreased (Normal)
[2019-10-04 13:47] LABS: Albumin Globulin Ratio 0.6 (0.9-2); Albumin Level 2.2 gm/dl (3.4-5.0); BUN Creatinine Ratio 16.1 (10-20); Bilirubin,Total 6.6 mg/dl (0.2-1); Calcium 7.8 mg/dl (8.5-10.1); Creatinine Clr Calc Pharmacy 150.3 ml/min; Est GFR (African American) 121.2; Est GFR (Non-African American) 104.5; Globulin 3.6 gm/dl (2.5-4.0); Potassium 4.4 mmol/L (3.5-5.1); Total Protein 5.8 gm/dl (6.4-8.2)
--- NOTE | 2019-10-04 13:58 | Ultrasound Report ---
US duplex portal hepatic veins CLINICAL HISTORY: ascites, upper GI bleed COMPARISON STUDY: Abdomen and pelvis CT 10/04/2019. FINDINGS: Nodular contour to the liver consistent with cirrhosis. The portal and hepatic veins are pa tent and demonstrate normal direction of flow. IMPRESSION: Portal and hepatic veins are patent and demonstrate normal direction of flow. ACT 112: Negative or not required by law. Electronically signed by: Clemente Garvin M.D. 10/04/2019 1:56 PM
--- NOTE | 2019-10-04 14:06 | Ultrasound Report ---
US liver HISTORY: 58 years-old Male f/u CT, eval portal vein also please follow-up study in a patient with ci rrhosis and ascites. COMPARISON: CT abdomen and pelvis of same day at 1:55 AM TECHNIQUE: Multiple real-time sonographic images of the abdominal right upper quadrant were obtained assessing grayscale appearance and color flow FINDINGS: Echogenic heterogeneous appearance of the cirrhotic liver. No hepatic mass or intrahepatic biliary du ctal dilation. Small volume of abdominal ascites. The gallbladder wall is mildly thickened measuring up to 3-4 mm. Gallbladder appears to be mildly contracted and is difficult to visualize secondary to body habitus. No cholelithiasis. Sonographic Livingston sign not reported. Unremarkable right kidney. IMPRESSION: 1. Cirrhotic liver disease with small volume of abdominal ascites. 2. Mild gallbladder wall thickening is likely secondary to cirrhotic liver. No cholelithiasis identif ied. 3. No biliary ductal dilation. ACT 112: Negative or not required by law. The above report was generated using voice recognition software. It may contain grammatical, syntax o r spelling errors. Electronically signed by: Phill Pa M.D. 10/04/2019 2:04 PM
--- NOTE | 2019-10-04 14:42 | Cardiology Consultation ---
Date of Consultation October 04, 2019 Assessment & Plan (1) Elevated troponin: -Very mild elevation likely secondary to his acute presentation. -Would continue to trend troponin. -Normal EKG. -Normal left ventricular systolic function without wall motion abnormality. (2) Hypertension: -Adequate control on current regimen. (3) GI bleed: -Esophageal varices noted on CT scan. -For EGD later today. (4) Liver cirrhosis: -Management per GI and primary care team. History of Present Illness Attending Physician: Jesse Merida DO History of Present Illness Mr. Nath is a 58-year-old male admitted earlier today with abdominal discomfort and melena. Initial troponin was elevated, therefore, this consultation was ordered. The patient was in his usual state of health until approximately 2 weeks ago. The patient injured his back and was taking Advil for pain control. Approximately 2 days ago, after eating "hot wings" the patient developed abdominal discomfort. He started taking [id number]-kwn-qmyonic Tagamet with some relief. However, 24 hours prior to admission, the patient had an episode of a "black, tarry stool." For that reason, he proceed to the emergency room for further care. At no time did the patient experience chest discomfort or shortness of breath during this time frame. The patient has never experienced exertional angina pectoris or limiting dyspnea. He further denies syncope, presyncope, PND, orthopnea, palpitations, and claudication. Unfortunately, patient has been diagnosed with alcoholic cirrhosis and esophageal varices. An upper endoscopy is scheduled for later today. Currently, patient is resting comfortably in bed without complaints. Past medical and surgical history 1. Hypertension 2. Alcoholic cirrhosis 3. Coagulopathy 4. Thrombocytopenia Social history since 2016 No tobacco Heavy alcohol use Family history Mother had stents placed at the age of 60 Review of systems A 10 point review systems was negative except for that described above. Allergies Allergy/AdvReac Type Severity Reaction Status Date / Time No Known Allergies Allergy Unverified 10/04/19 00:46 Home Medications Home Medications Medication Instructions Recorded Confirmed Type No Known Home Medications 10/04/19 10/04/19 History Patient History Family History (Updated 10/04/19 @ 11:24 by LAURA Paige) Family/Other No problems noted. 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 HEENT exam is negative. Neck is supple with full carotid upstrokes. No carotid bruits. Jugular venous pressure is flat at 90 degrees. There is no thyromegaly. Cardiovascular exam reveals a regular rhythm with a normal S1-S2. Heart sounds are distant. No obvious murmurs. Lungs are clear without rales, rhonchi or wheezes. Abdomen is protuberant. Extremities reveal 2+ pitting edema to the knees bilaterally. 1+ thigh edema. Results & Data ([facility]) Vital Signs (Past 12 Hours) Vital Signs Temp Pulse Pulse Resp BP BP BP 10/04/19 13:00 36.9 C 85 18 145/78 H 10/04/19 10:31 87 24 120/81 10/04/19 09:31 85 18 106/79 10/04/19 08:31 82 16 136/76 10/04/19 08:00 36.4 C L 10/04/19 07:31 88 21 128/71 10/04/19 06:31 86 16 133/77 10/04/19 05:31 88 14 136/80 10/04/19 04:41 37.1 C 86 16 152/86 H 10/04/19 04:31 82 19 152/86 H 10/04/19 04:00 78 16 141/89 H 10/04/19 03:49 78 79 19 154/85 H 154/85 H 10/04/19 03:36 102 H 199/106 H Pulse Ox 10/04/19 13:00 97 10/04/19 10:31 95 10/04/19 09:31 96 10/04/19 08:31 95 10/04/19 08:00 10/04/19 07:31 94 10/04/19 06:31 95 10/04/19 05:31 97 10/04/19 04:41 98 10/04/19 04:31 98 10/04/19 04:00 95 10/04/19 03:49 98 10/04/19 03:36 Laboratory Results CBC notes hemoglobin 11.5, crit 32.4, white count 16.3, and platelet count of 214723. electrolytes note a sodium of 120, potassium 3.7, chloride 95, bicarb 22, BUN 11, creatinine 0.77, glucose of 105. Magnesium level is low 1.4. Troponin I levels mildly elevated 0.063. Albumin is low at 2.6. INR is elevated 1.8. Diagnostic Findings EKG notes normal sinus rhythm and LVH with repolarization changes. Abdominal CT scan noted a cirrhotic liver, ascites, esophageal varices, portal hypertension, diverticulosis, and calcified coronary arteries. PG Care Time/CCT Total # of Minutes Spent Total Time Spent with Patient: Total time spent is greater than 50% in coordin ation of care (as documented) at patient's floor/unit and/or counseling patient: Coding Level of Care Code 93039 Inpt Consult Level 4 Diagnoses Elevated troponin R79.89 Hypertension I10 Hypertension type: essential hypertension GI bleed K92.1 GI bleed type/associated pathology: melena Liver cirrhosis K70.31 Ascites presence: with ascites Hepatic cirrhosis type: alcoholic cirrhosis (1) Hypertension Hypertension type: essential hypertension Qualified Code(s): I10 - Essential (primary) hypertension (2) GI bleed GI bleed type/associated pathology: melena Qualified Code(s): K92.1 - Melena (3) Liver cirrhosis Ascites presence: with ascites Hepatic cirrhosis type: alcoholic cirrhosis Qualified Code(s): K70.31 - Alcoholic cirrhosis of liver with ascites
--- NOTE | 2019-10-04 15:40 | Anesthesiology Consultation ---
Date of Service October 04, 2019 Assessment & Plan (1) Encounter for pre-operative examination: Chart Review Chart Review: Acceptable Risk for Surgery and Patient NOT seen in Pre Admission Testing Consults Requested none ASA ASA4 Proposed Anesthesia Anesthesia Type: MAC Risk / Benefits Reviewed With: PT / POA / Parent / Guardian, Accepts Plan and Informed Consent Obtained History Surgery Operation Date: 10/04/19 10:20 Proposed Procedures p Esophagogastroduodenoscopy - Maximo Maurice MD Height/Weight Height: 5 ft 11 in Weight: 114.2 kg Allergies Allergy/AdvReac Type Severity Reaction Status Date / Time No Known Allergies Allergy Unverified 10/04/19 00:46 Medications Home Medications Medication Instructions Recorded Confirmed Last Taken No Known Home Medications 10/04/19 10/04/19 Unknown Active Medications Generic Name Dose Route Start Last Admin Trade Name Freq PRN Reason Stop Dose Admin Pantoprazole Sodium 40 mg/ 100 mls @ 20 mls/hr 10/04/19 02:30 10/04/19 13:12 Dextrose IV 11/03/19 02:29 8 mg/hr Q5H RONI 20 mls/hr Administration 8 MG/HR Octreotide Acetate 500 mcg/ 105 mls @ 10 mls/hr 10/04/19 03:15 10/04/19 10:30 Sodium Chloride IV 11/03/19 03:14 10 mls/hr .[id number] RONI Administration Thiamine HCl 100 mg/ Syringe 10 mls @ 2 mls/min 10/04/19 09:00 10/04/19 08:39 IV 11/03/19 08:59 2 mls/min QAM RONI Administration Folic Acid 1 mg/ Syringe 10 mls @ 5 mls/min 10/04/19 09:00 10/04/19 08:39 IV 11/03/19 08:59 5 mls/min QAM RONI Administration Ceftriaxone Sodium 2,000 mg/ 70 mls @ 100 mls/hr 10/04/19 11:00 10/04/19 14:07 Dextrose IV 10/14/19 10:59 Infused Q24H RONI Infusion Protocol Potassium Chloride/Sodium Chloride 20 meq in 1,000 mls @ 80 mls/hr 10/04/19 11:00 10/04/19 12:53 Normal Saline W/20 Meq Kcl IV 11/03/19 10:59 80 mls/hr .[id number] RONI Administration Ioversol 100 ml 10/04/19 01:54 10/04/19 01:54 Optiray 320 100ml IV 10/08/19 01:53 93 ml ONCE PRN Administration Interaction Checking NPO Date Last Intake of Fluids: 10/03/19 Time Last Intake of Fluids: 18:00 Date Last Intake of Solids: 10/03/19 Time Last Intake of Solids: 18:00 Exercise / Class Metabolic Activity II 4-5 Yardwork/Stairs/Walk up hill Past Family History Family History (Updated 10/04/19 @ 11:24 by LAURA Paige) Family/Other No problems noted. Denies family history of Liver disease Past Anesthesia History No Hx of Anesthesia Complications and No Family Hx of Anesthesia Complications History of PONV No Hx of PONV and No Hx of Motion Sickness Social History Smoking Status: Unknown if ever smoked Hx Alcohol Use: Yes Alcohol type: beer Alcohol Intake Frequency Comment: only reports drinking beer on weekends Hx Substance Use: No Physical Exam Vital Signs Last Vital Signs Temp 36.9 C 10/04/19 13:00 Pulse 87 10/04/19 14:31 Resp 16 10/04/19 14:31 BP 145/63 H 10/04/19 14:31 Pulse Ox 96 10/04/19 14:31 Constitutional + obese ENMT Mouth: no dentition abnormality Thyromental Distance: > or= 3.5 Finger Breadths Mallampati Class: II Neck normal visual inspection Respiratory normal respiratory effort Auscultation: lungs clear to auscultation bilaterally Cardiovascular Rate/Rhythm: regular rate and regular rhythm Psychiatric Orientation: alert Testing Laboratory Results 10/04/19 13:00 10/04/19 13:00 PT 18.6 Seconds (9.0-12.0) H 10/04/19 13:00 INR 1.8 (0.9-1.1) H 10/04/19 13:00 Blood Type O Positive 10/04/19 00:48 Antibody Screen NEGATIVE 10/04/19 00:48 10/04/19 04:47 POC Glucose 115 H Electrocardiogram Date: 10/04/19 Findings: + ST @ Echocardiogram Date: 10/04/19 EF: 65 LV Function: normal Valvular Disease: + no significant valvular disease
[2019-10-04] MEDS ORDERED: PHENYLEPHRINE 100MCG/ML 5ML SYR ONE (16:05)
[2019-10-04] MEDS ORDERED: PROPOFOL IV EMULSION 10 MG/ML 20 ML VIAL IV ONE (16:05)
[2019-10-04] MEDS ORDERED: LIDOCAINE HCL 2% 2 ML VIAL/AMP(20MG/ML) INFIL ONE (16:05)
--- NOTE | 2019-10-04 16:39 | Procedure Note ---
Procedure Note Date of Service October 04, 2019 GI brief procedure note/post op note: EGD findings: large esophageal varices with stigmata of recent bleeding, EVL x 3 performed. No active bleeding nor blood noted in the stomach nor duodenum, no gastric varices. portal HTNsive gastropathy noted. Recs: --NPO today, avoid NG tube insertion for the next 24 hours -- complete 72 hours of octreotide gtt -- protonix 40 mg BID -- if H/H stable, can advance diet to clear liquids starting tomorrow morning -- will need repeat EGD in 4 weeks --ceftriaxone daily for 7 days for SBP ppx for GI bleed in a cirrhotic Maximo Maurice MD Gastroenterology Coding
--- NOTE | 2019-10-04 17:01 | GI REPORT ---
Patient Name: Glen Nath Procedure Date: 10/04/2019 4:08 PM Date of : 1960 Admit Type: Inpatient Age: 58 Gender: Male Attending MD: Maximo Maurice MD Procedure: Upper GI endoscopy Providers: Maximo Maurice MD Referring MD: Jesse Merida Indications: Melena Medicines: Monitored Anesthesia Care Complications: No immediate complications. Estimated blood loss: None. Estimated Blood Loss: Estimated blood loss: none. Procedure: Pre-Anesthesia Assessment: - Prior Anticoagulants: The patient has taken no previous anticoagulant or antiplatelet agents. - ASA Grade Assessment: IV - A patient with severe systemic disease that is a constant threat to life. After obtaining informed consent, the endoscope was passed under direct vision. Throughout the procedure, the patient's blood pressure, pulse, and oxygen saturations were monitored continuously. The Endoscope was introduced through the mouth, and advanced to the second part of duodenum. The upper GI endoscopy was accomplished without difficulty. The patient tolerated the procedure well. Findings: Two columns of non-bleeding large (> 5 mm) varices were found in the lower third of the esophagus,. They were large in size. Stigmata of recent bleeding were evident and no red nadia signs were present. Three bands were successfully placed with complete eradication, resulting in deflation of varices. There was no bleeding at the end of the procedure. Mild portal hypertensive gastropathy was found in the stomach. No evidence of gastric varices nor active bleeding in the stomach nor duodenum. The duodenal bulb and second portion of the duodenum were normal. Impression: - Recently bleeding large (> 5 mm) esophageal varices. Completely eradicated. Banded. - Portal hypertensive gastropathy. - Normal duodenal bulb and second portion of the duodenum. - No specimens collected. Recommendation: - Return patient to ICU for ongoing care. - NPO today. - if H/H stable, can advance diet to clear liquids tomorrow morning -complete 72 hours of octreotide drip -switch protonix to 40 mg BID -repeat EGD in 4 weeks Maximo Maurice MD 10/04/2019 5:00:42 PM This report has been signed electronically. Note Initiated On: 10/04/2019 4:08 PM Number of Addenda: 0 I attest to the content of the Intraoperative Record and orders documented therein, exceptions below {[id number]}
--- NOTE | 2019-10-04 17:03 | Anesthesiology Progress Note ---
Date of Service October 04, 2019 Anesthesia Post Procedure Vital Signs Vital Signs: Temp Pulse Pulse Resp BP BP BP 10/04/19 14:31 87 16 145/63 H 10/04/19 13:31 90 18 142/73 H 10/04/19 13:00 36.9 C 85 18 145/78 H 10/04/19 12:55 84 15 145/78 H 10/04/19 12:10 83 16 133/75 10/04/19 11:33 87 19 133/75 10/04/19 10:31 87 24 120/81 10/04/19 09:31 85 18 106/79 10/04/19 08:31 82 16 136/76 10/04/19 08:00 36.4 C L 10/04/19 07:31 88 21 128/71 10/04/19 06:31 86 16 133/77 10/04/19 05:31 88 14 136/80 10/04/19 04:41 37.1 C 86 16 152/86 H 10/04/19 04:31 82 19 152/86 H 10/04/19 04:00 78 16 141/89 H 10/04/19 03:49 78 79 19 154/85 H 154/85 H 10/04/19 03:36 102 H 199/106 H 10/04/19 02:11 101 H 14 189/87 H 10/04/19 01:04 101 H 18 188/91 H 10/04/19 00:26 36.9 C 114 H 18 177/102 H Pulse Ox 10/04/19 14:31 96 10/04/19 13:31 94 10/04/19 13:00 97 10/04/19 12:55 96 10/04/19 12:10 96 10/04/19 11:33 97 10/04/19 10:31 95 10/04/19 09:31 96 10/04/19 08:31 95 10/04/19 08:00 10/04/19 07:31 94 10/04/19 06:31 95 10/04/19 05:31 97 10/04/19 04:41 98 10/04/19 04:31 98 10/04/19 04:00 95 10/04/19 03:49 98 10/04/19 03:36 10/04/19 02:11 98 10/04/19 01:04 97 10/04/19 00:26 99 Transfer of Care Handoff Completed per policy Notes Mental Status: alert / awake / arousable Patient Amnestic to Procedure: Yes Nausea / Vomiting: adequately controlled Pain: adequately controlled Airway Patency, RR, SpO2: stable & adequate BP & HR: stable & adequate Hydration State: stable & adequate Anesthetic Complications: no major complications apparent
[2019-10-04 20:16] LABS: Hemoglobin 11.3 g/dL (14.0-18.0)
--- NOTE | 2019-10-04 21:51 | History & Physical Bridge Note ---
Date of Service October 04, 2019 History & Physical Bridge Note I have examined the patient, reviewed the History & Physical and in the interval since the performance of the History & Physical I have noted the following changes of clinical significance: patient stable today, no hematemesis, no melena or hematochezia Hb dropped only slightly, BP stable EGD this afternoon with large esophageal varices, banded by Dr. Maurice return to ICU for close monitoring will need GI follow up for alcoholic cirrhosis
[2019-10-05] MEDS: NSS + 20MEQ KCL 20 MEQ/1,000 ML BAG IV SCH (01:40)
[2019-10-05 02:49] LABS: Hepatitis A Antibody IgM NON-REACTIVE (NON-REACTIVE); Hepatitis B Core Antibody IgM NON-REACTIVE (NON-REACTIVE)
[2019-10-05] MEDS: PANTOprazole 40 MG in DEXTROSE 5% 100 ML IV SCH (04:20)
[2019-10-05 04:41] LABS: Hematocrit (blood only) 31.1 % (42-52); Hemoglobin 10.7 g/dL (14.0-18.0); Mean Corpuscular Hemoglobin 34.7 pg (25-34); Mean Corpuscular Hgb Conc 34.4 g/dL (32-36); RDW Coefficient of Variation 14.7 % (11.5-14.5); RDW Standard Deviation 54.1 fL (36.4-46.3); Red Blood Count 3.08 M/uL (4.7-6.1); White Blood Count 7.42 K/uL (4.8-10.8)
[2019-10-05 04:46] LABS: Mean Platelet Volume 9.8 fL (7.4-10.4); Platelet Count 72 K/uL (130-400)
[2019-10-05 04:58] LABS: INR 1.7 (0.9-1.1); Partial Thromboplastin Ratio 1.3; Partial Thromboplastin Time 35.9 Seconds (21.0-31.0); Prothrombin Time 17.3 Seconds (9.0-12.0)
[2019-10-05 05:02] LABS: Albumin Level 2.2 gm/dl (3.4-5.0); BUN Creatinine Ratio 19.4 (10-20); Bilirubin Direct 3.7 mg/dl (0-0.2); Bilirubin,Total 6.7 mg/dl (0.2-1); Calcium 7.6 mg/dl (8.5-10.1); Creatinine Clr Calc Pharmacy 148.1 ml/min; Est GFR (African American) 120.4; Est GFR (Non-African American) 103.9; Magnesium 1.7 mg/dl (1.8-2.4); Phosphorus 2.5 mg/dl (2.5-4.9); Total Protein 5.7 gm/dl (6.4-8.2)
[2019-10-05 05:06] LABS: Basophils # (auto) 0.04 K/uL (0-0.2); Basophils % (auto) 0.5 %; Eosinophils # (auto) 0.13 K/uL (0-0.5); Eosinophils % (auto) 1.8 %; Giant Platelets 1+; Immature Granulocytes # (auto) 0.02 K/uL (0.00-0.02); Immature Granulocytes % (auto) 0.3 %; Lymphocytes # (auto) 1.82 K/uL (1.2-3.4); Lymphocytes % (auto) 24.5 %; Monocytes # (auto) 0.74 K/uL (0.11-0.59); Neutrophils # (auto) 4.67 K/uL (1.4-6.5); Neutrophils % (auto) 62.9 %
[2019-10-05] MEDS: OCTREOTIDE ACETATE 500 MCG in 0.9 % SODIUM CHLORIDE 100 ML IV SCH ×2 (07:45→20:17)
[2019-10-05] MEDS: THIAMINE HCL 100 MG in SYRINGE 9 ML IV SCH (07:47)
[2019-10-05] MEDS: FOLIC ACID 1 MG in SYRINGE 9.8 ML IV SCH (07:47)
[2019-10-05] MEDS: PANTOprazole 40 MG in SYRINGE 0 ML IV SCH ×2 (07:47→20:19)
--- NOTE | 2019-10-05 08:14 | Critical Care Progress Note ---
Date of Service October 05, 2019 Assessment & Plan (1) GI bleed: Reason Critically Ill: 58-year-old male here with a PMHx significant for HTN, alcohol abuse who presented with melanotic stools and who was admitted for new diagnosis of cirrhosis with upper GIB. Neuro * Alcohol Withdrawal * AWSS protocol: has not required any ativan for withdrawal symptoms * Pt noncomittal about frequency and quantity of drinking but does drink several beers on weekends and occasionally during the week * hx of heavy drinking in 2016 when of lung cancer. Cardiac * Hx HTN, no acute concerns. * pt states he takes 40 mg lisinopril and 25 mg HCTZ at home but has not seen a physician regarding his HTN in at least a year. Pulm * Breathing well on room air, no acute concerns GI * Upper GIB * EGD: 3 large esophageal varices with recent bleeding, banded. Hypertensive gastropathy present. * protonix drip switched to BID * Will require Octreotide for total of 72 hours (end time 5 am 10/06) * Cirrhosis * MELD score down to 22 (10% 90 day mortality) * Child GILLIS class C * CT abdomen and RUQ USshowing cirrhotic liver, moderate ascites * benefits from initiation of 40 mg prednisolone * would benefit from getting in touch with transplant surgeon if interested in future transplant care * hepatitis screen negative Renal * Hyponatremia 2/2 cirrhosis, improving Heme * GIB * Hg stable at 10.7 * Macrocytic Anemia * due to alcohol abuse * supplementing with thiamine and folic acid * MCV 99, may have mixed microcytic anemia + macrocytic anemia * Has not had screening colonoscopy, no fmhx colon cancer ID * rocephin for SBP coverage, ABx day 3 * low suspicion for SBP DVT Prophylaxis: contraindicated with GIB, ambulate ad meri, SCDs Dispo: stable for downgrade to med/surg today. To follow up with Dr. Wilkerson ([facility] resident) after discharge for continuation of care. Thank you for allowing us to be part of this patient's care. Please refer to Dr. Christina's documentation for any further recommendations. (2) Alcohol abuse: (3) Elevated troponin: (4) Hyponatremia: (5) Coagulopathy: (6) Hypomagnesemia: (7) Thrombocytopenia: (8) Hypoalbuminemia: (9) Ascites due to alcoholic cirrhosis: Admission and Anticipated Discharge Date Admission Date: October 04, 2019 Supervising Physician Co-Signing Physician Notes Dr. Wilkerson was resident physician during care of patient. I separately evaluated patient for min portions of the history and the exam. I was present during the critical portion of medical decision making, and I discussed the case with the resident. I generally agree with the findings and plan. Remains hemodynamically stable, successful banding yesterday. Stable for downgrade out of ICU. Patient was discussed on multidisciplinary rounds. Subjective Feeling well this morning. No complaints of abdominal pain, chest pressure, SOB. No formed bowel movements since admission to ICU, but states some melanotic output continuing. No BRBPR, hematemesis, nausea, vomiting. Review of Systems Review of Systems: All systems reviewed & are unremarkable except as noted in HPI & below Physical Exam Physical Exam: Constitutional: obese, in no apparent distress, sitting comfortably in bed. Eyes: EOMI, pupils equal and reactive bilaterally, no scleral icterus Cardiac: RRR, no murmurs, gallops or rubs. Normal S1, S2 Pulm: CTA BL, no wheezes, rhonchi, crackles or rubs, moving air well throughout both lungs Abd: soft, nontender, distended, normal bowel sounds, no rebound or guarding, tympanic to percussion, negative Livingston's sign Extremities: 2+ peripheral pulses, no edema Neuro: no focal deficits, moving all 4 limbs, A&Ox3 Psych: depressed affect Results & Data Results & Data ([facility]) Vital Signs (Past 12 Hours) Vital Signs Pulse Resp BP Pulse Ox 10/05/19 07:00 87 26 H 93 10/05/19 06:02 80 15 171/89 H 93 10/05/19 06:00 70 14 95 10/05/19 05:06 94 10/05/19 04:02 70 15 141/89 H 96 10/05/19 04:00 70 11 L 94 10/05/19 03:02 91 H 15 146/86 H 93 10/05/19 03:00 96 H 20 93 10/05/19 02:02 69 16 134/85 93 10/05/19 02:00 72 16 93 10/05/19 01:02 69 14 128/76 95 10/05/19 01:00 70 16 91 10/05/19 00:02 77 18 145/89 H 98 10/05/19 00:00 77 21 95 10/04/19 23:02 77 24 124/77 97 10/04/19 23:00 78 24 97 10/04/19 22:08 93 H 17 141/109 H 96 10/04/19 22:06 95 H 31 H 95 10/04/19 21:02 79 21 129/82 95 10/04/19 21:00 76 15 96 Laboratory Results WBC 7.42 K/uL (4.8-10.8) 10/05/19 04:12 RBC 3.08 M/uL (4.7-6.1) L 10/05/19 04:12 Hgb 10.7 g/dL (14.0-18.0) L 10/05/19 04:12 Hct 31.1 % (42-52) L 10/05/19 04:12 MCV 101.0 fL (80-100) H 10/05/19 04:12 MCH 34.7 pg (25-34) H 10/05/19 04:12 MCHC 34.4 g/dL (32-36) 10/05/19 04:12 RDW Std Deviation 54.1 fL (36.4-46.3) H 10/05/19 04:12 RDW Coeff of Aleah 14.7 % (11.5-14.5) H 10/05/19 04:12 Plt Count 72 K/uL (130-400) L 10/05/19 04:12 MPV 9.8 fL (7.4-10.4) 10/05/19 04:12 Immature Gran % (Auto) 0.3 % 10/05/19 04:12 Neut % (Auto) 62.9 % 10/05/19 04:12 Lymph % (Auto) 24.5 % 10/05/19 04:12 [place] % (Auto) 10.0 % 10/05/19 04:12 Eos % (Auto) 1.8 % 10/05/19 04:12 Baso % (Auto) 0.5 % 10/05/19 04:12 Neut # (Auto) 4.67 K/uL (1.4-6.5) 10/05/19 04:12 Lymph # (Auto) 1.82 K/uL (1.2-3.4) 10/05/19 04:12 [place] # (Auto) 0.74 K/uL (0.11-0.59) H 10/05/19 04:12 Eos # (Auto) 0.13 K/uL (0-0.5) 10/05/19 04:12 Baso # (Auto) 0.04 K/uL (0-0.2) 10/05/19 04:12 Immature Gran # (Auto) 0.02 K/uL (0.00-0.02) 10/05/19 04:12 Platelet Estimate Decreased (Normal) L 10/04/19 13:00 Giant Platelets 1+ 10/05/19 04:12 PT 17.3 Seconds (9.0-12.0) H 10/05/19 04:12 INR 1.7 (0.9-1.1) H 10/05/19 04:12 APTT 35.9 Seconds (21.0-31.0) H 10/05/19 04:12 PTT Ratio 1.3 10/05/19 04:12 Sodium 135 mmol/L (136-145) L 10/05/19 04:12 Potassium 4.0 mmol/L (3.5-5.1) 10/05/19 04:12 Chloride 104 mmol/L (98-107) 10/05/19 04:12 Carbon Dioxide 25 mmol/L (21-32) 10/05/19 04:12 Anion Gap 6.0 (3-11) 10/05/19 04:12 BUN 13 mg/dl (7-18) 10/05/19 04:12 Creatinine 0.69 mg/dl (0.6-1.4) 10/05/19 04:12 Est Cr Clr Drug Dosing 148.1 ml/min 10/05/19 04:12 Est GFR ( Amer) 120.4 10/05/19 04:12 Est GFR (Non-Af Amer) 103.9 10/05/19 04:12 BUN/Creatinine Ratio 19.4 (10-20) 10/05/19 04:12 Glucose 108 mg/dl (70-99) H 10/05/19 04:12 POC Glucose 115 mg/dl (70-99) H 10/04/19 04:47 Osmolality 267 mOsm/kg (280-300) L 10/04/19 00:49 Lactate 1.3 mmol/L (0.4-2.0) 10/05/19 07:00 Calcium 7.6 mg/dl (8.5-10.1) L 10/05/19 04:12 Phosphorus 2.5 mg/dl (2.5-4.9) 10/05/19 04:12 Magnesium 1.7 mg/dl (1.8-2.4) L 10/05/19 04:12 Total Bilirubin 6.7 mg/dl (0.2-1) H 10/05/19 04:12 Direct Bilirubin 3.7 mg/dl (0-0.2) H 10/05/19 04:12 AST 124 U/L (15-37) H 10/05/19 04:12 ALT 66 U/L (12-78) 10/05/19 04:12 Alkaline Phosphatase 110 U/L (45-117) 10/05/19 04:12 Troponin I 0.017 ng/ml (0-0.045) 10/05/19 04:12 Total Protein 5.7 gm/dl (6.4-8.2) L 10/05/19 04:12 Albumin 2.2 gm/dl (3.4-5.0) L 10/05/19 04:12 Globulin 3.6 gm/dl (2.5-4.0) 10/04/19 13:00 Albumin/Globulin Ratio 0.6 (0.9-2) L 10/04/19 13:00 Lipase 64 U/L (73-393) L 10/04/19 00:48 Folate 23.88 ng/ml (>5.38) 10/04/19 06:37 Nasal Screen MRSA (PCR) Negative (Negative) 10/04/19 Unknown Ethyl Alcohol mg/dL < 3.0 mg/dl (0-3) 10/04/19 13:00 Hepatitis A IgM Ab NON-REACTIVE (NON-REACTIVE) 10/04/19 06:37 Hep Bs Antigen Neg (Neg) 10/04/19 06:37 Hep B Core IgM Ab NON-REACTIVE (NON-REACTIVE) 10/04/19 06:37 Hepatitis C Antibody Neg (Neg) 10/04/19 06:37 Blood Type O Positive 10/04/19 00:48 Antibody Screen NEGATIVE 10/04/19 00:48 Resident Activity Tracking Resident Involvement: Resident Care Provided Care Provided: Adult [facility] Medicine (1) GI bleed GI bleed type/associated pathology: melena Qualified Code(s): K92.1 - Melena
[2019-10-05] MEDS: MAGNESIUM SULFATE / D5W 1 GM/100 ML BAG IV SCH ×2 (09:12→12:49)
--- NOTE | 2019-10-05 10:01 | Gastroenterology Progress Note ---
Date of Service October 05, 2019 Assessment & Plan (1) GI bleed: (2) Alcohol abuse: (3) Coagulopathy: (4) Liver cirrhosis: 1. Clear liquid diet today, then advance slowly as tolerated. 2. Continue PPI/Octreotide GGTs x 72 hours and abx prophylaxis as ordered. 3. Continue ETOH withdrawal protocol. 4. EGD in 4 weeks for evaluation of need for rebanding. Our office is in process of arranging. 5. Labs overall improving. MELD down to 21 today. No evidence of acute encephalopathy. INR improving. 6. Counseled patient on risks on ongoing ETOH/NSAID use in the setting decompensated cirrhosis. 7. Continue supportive care. Admission and Anticipated Discharge Date Admission Date: October 04, 2019 Supervising Physician Co-Signing Physician Notes I personally evaluated the patient and agree with the findings as documented by LAURA Kirk Exam: abd: soft, nt, nd, obese s/p EVL yesterday, will need repeat EGD in 4 weeks. Subjective Patient reports feeling well today. He is status post EGD last evening with Dr. Maurice. Findings of large esophageal varices with stigmata of recent but not active bleeding. Varices were banded with successful eradication. He remains on PPI/Octreotide GGTs as well as prophylactic antibiotics. H&H 10.7/31.1. INR improved to 1.7. Hyponatremia improved to 135. Unremarkable portal duplex. MELD down to 21. He is tolerating clear liquids. No s/s withdrawal since admission. Has mentated well. Reports only small amount of dark stool this morning but is otherwise without any specific complaints. Denies any odynophagia. Review of Systems Constitutional: no fever and no chills Respiratory: no cough and no dyspnea Cardiovascular: no chest pain and no palpitations Gastrointestinal: as per Subjective / HPI Musculoskeletal: + swelling Psychiatric: as per Subjective / HPI Physical Exam Constitutional: WD/WN, vitals as above Eyes: EOM intact bilaterally Neck: normal visual inspection Respiratory: normal respiratory effort, lungs clear to auscultation Cardiovascular: Rate/Rhythm: regular rate and regular rhythm Gastrointestinal (Abdomen): Inspection/Auscultation: + abdomen distended and normal bowel sounds Percussion/Palpation: abdomen nontender Musculoskeletal: Extremities: + lower extremity abnormal to inspection Bilateral (mild edema) Psychiatric: A+Ox3, euthymic affect Results & Data Results & Data ([facility]) Vital Signs (Past 12 Hours) Vital Signs Temp Pulse Resp BP Pulse Ox 10/05/19 08:02 88 24 140/81 93 10/05/19 08:00 37.2 C 10/05/19 07:34 90 19 143/73 H 96 10/05/19 07:00 87 26 H 93 10/05/19 06:02 80 15 171/89 H 93 10/05/19 06:00 70 14 95 10/05/19 05:06 94 10/05/19 04:02 70 15 141/89 H 96 10/05/19 04:00 70 11 L 94 10/05/19 03:02 91 H 15 146/86 H 93 10/05/19 03:00 96 H 20 93 10/05/19 02:02 69 16 134/85 93 10/05/19 02:00 72 16 93 10/05/19 01:02 69 14 128/76 95 10/05/19 01:00 70 16 91 10/05/19 00:02 77 18 145/89 H 98 10/05/19 00:00 77 21 95 10/04/19 23:02 77 24 124/77 97 10/04/19 23:00 78 24 97 10/04/19 22:08 93 H 17 141/109 H 96 10/04/19 22:06 95 H 31 H 95 Laboratory Results Abnormal lab results 10/04/19 10/04/19 10/04/19 Range/Units 13:00 13:00 13:00 RBC 3.06 L (4.7-6.1) M/uL Hgb 10.6 L (14.0-18.0) g/dL Hct 30.3 L (42-52) % MCV (80-100) fL MCH 34.6 H (25-34) pg RDW Std Deviation 53.4 H (36.4-46.3) fL RDW Coeff of Aleah 14.8 H (11.5-14.5) % Plt Count 83 L (130-400) K/uL Neut # (Auto) 7.07 H (1.4-6.5) K/uL [place] # (Auto) 1.02 H (0.11-0.59) K/uL Immature Gran # (Auto) 0.03 H (0.00-0.02) K/uL Platelet Estimate Decreased L (Normal) PT 18.6 H (9.0-12.0) Seconds INR 1.8 H (0.9-1.1) APTT (21.0-31.0) Seconds Sodium 131 L (136-145) mmol/L Glucose 140 H (70-99) mg/dl Calcium 7.8 L (8.5-10.1) mg/dl Magnesium (1.8-2.4) mg/dl Total Bilirubin 6.6 H (0.2-1) mg/dl Direct Bilirubin (0-0.2) mg/dl AST 107 H (15-37) U/L Total Protein 5.8 L (6.4-8.2) gm/dl Albumin 2.2 L (3.4-5.0) gm/dl Albumin/Globulin Ratio 0.6 L (0.9-2) 10/04/19 10/05/19 10/05/19 Range/Units 20:06 04:12 04:12 RBC 3.08 L (4.7-6.1) M/uL Hgb 11.3 L 10.7 L (14.0-18.0) g/dL Hct 33.0 L 31.1 L (42-52) % MCV 101.0 H (80-100) fL MCH 34.7 H (25-34) pg RDW Std Deviation 54.1 H (36.4-46.3) fL RDW Coeff of Aleah 14.7 H (11.5-14.5) % Plt Count 72 L (130-400) K/uL Neut # (Auto) (1.4-6.5) K/uL [place] # (Auto) 0.74 H (0.11-0.59) K/uL Immature Gran # (Auto) (0.00-0.02) K/uL Platelet Estimate (Normal) PT 17.3 H (9.0-12.0) Seconds INR 1.7 H (0.9-1.1) APTT 35.9 H (21.0-31.0) Seconds Sodium (136-145) mmol/L Glucose (70-99) mg/dl Calcium (8.5-10.1) mg/dl Magnesium (1.8-2.4) mg/dl Total Bilirubin (0.2-1) mg/dl Direct Bilirubin (0-0.2) mg/dl AST (15-37) U/L Total Protein (6.4-8.2) gm/dl Albumin (3.4-5.0) gm/dl Albumin/Globulin Ratio (0.9-2) 10/05/19 Range/Units 04:12 RBC (4.7-6.1) M/uL Hgb (14.0-18.0) g/dL Hct (42-52) % MCV (80-100) fL MCH (25-34) pg RDW Std Deviation (36.4-46.3) fL RDW Coeff of Aleah (11.5-14.5) % Plt Count (130-400) K/uL Neut # (Auto) (1.4-6.5) K/uL [place] # (Auto) (0.11-0.59) K/uL Immature Gran # (Auto) (0.00-0.02) K/uL Platelet Estimate (Normal) PT (9.0-12.0) Seconds INR (0.9-1.1) APTT (21.0-31.0) Seconds Sodium 135 L (136-145) mmol/L Glucose 108 H (70-99) mg/dl Calcium 7.6 L (8.5-10.1) mg/dl Magnesium 1.7 L (1.8-2.4) mg/dl Total Bilirubin 6.7 H (0.2-1) mg/dl Direct Bilirubin 3.7 H (0-0.2) mg/dl AST 124 H (15-37) U/L Total Protein 5.7 L (6.4-8.2) gm/dl Albumin 2.2 L (3.4-5.0) gm/dl Albumin/Globulin Ratio (0.9-2) PG Care Time/CCT Total # of Minutes Spent Total Time Spent with Patient: Total time spent is greater than 50% in coordination of care (as documented) at patient's floor/unit and/or counseling patient: Coding Level of Care Code 20130 Subseq Hosp Care Lvl 3 Diagnoses GI bleed K92.1 GI bleed type/associated pathology: melena Alcohol abuse F10.10 Coagulopathy D68.9 Liver cirrhosis K70.31 Ascites presence: with ascites Hepatic cirrhosis type: alcoholic cirrhosis (1) GI bleed GI bleed type/associated pathology: melena Qualified Code(s): K92.1 - Melena (2) Liver cirrhosis Ascites presence: with ascites Hepatic cirrhosis type: alcoholic cirrhosis Qualified Code(s): K70.31 - Alcoholic cirrhosis of liver with ascites
[2019-10-05] MEDS: cefTRIAXone SODIUM 2,000 MG in DEXTROSE 5% 50 ML IV SCH (12:49)
--- NOTE | 2019-10-05 13:38 | Hospitalist Progress Note ---
Date of Service October 05, 2019 Assessment & Plan (1) Upper GI bleeding: Upper GI bleeding- due to large esophageal varices in setting of alcohol cirrhosis continue Protonix drip and octreotide drip (until 10/06) allow clear liquids, defer advancement in diet to GI since he had banding Hb is stable at 10.7 Zofran 4 mg IV every 6 hours as needed, no vomiting empiric Rocephin with varices (2) Liver cirrhosis: Alcoholic liver cirrhosis/ascites/anasarca- Banana bag - change to PO thiamine and folic acid bili elevated elevated INR MELD score 29 on admission understands that he cannot drink anymore will talk with GI about beta blockers, aldactone etc plan to follow up with Dr. Maurice (3) Ascites due to alcoholic cirrhosis: See above (4) Anasarca: See above (5) Non-STEMI (non-ST elevated myocardial infarction): NSTEMI ruled out, this was demand ischemia d/w cardiology no further work up (6) Hypoalbuminemia: Albumin 2.6 upon admission due to poor nutrition and cirrhosis (7) Thrombocytopenia: platelets low at 72k, due to cirrhosis follow (8) Hypomagnesemia: Magnesium 1.4 upon admission. up to 1.7 today (9) Lactic acidosis: Lactic acid 3.7 upon admission. down to normal now (10) Coagulopathy: coagulopathy due to cirrhosis received Vitamin K on admission, not much effect no need for further dosing (11) Hyponatremia: Sodium 128 upon admission up to 135, this is hypervolume hyponatremia in setting of ascites (12) Admitted to intensive care unit: Patient will be admitted to the ICU. transfer to PCU today (13) Hypertension: As an outpatient, the patient is on lisinopril 40 mg daily and HCTZ 25 mg daily, both of which will be held. BP elevated will start on Coreg due to cirrhosis and increased portal pressures, follow pressures Admission and Anticipated Discharge Date Admission Date: October 04, 2019 Subjective patient doing well, sitting up in chair, tolerating liquid diet no hematemesis, no melena, no abdominal pain reviewed labs, Hb is stable at 10.7, INR is 1.7, bili 6.7, AST 124 appreciate GI recommendations will need Octreotide until 10/06 he denies any symptoms of alcohol withdrawal, insists that his last drink was almost a week ago says "why does everyone keep asking me about drinking and withdrawal?" he swears he does not drink heavily anymore, admits that he drank really heavy years ago after his Review of Systems Review of Systems: All systems reviewed & are unremarkable except as noted in Subjective Respiratory: no cough and no dyspnea Cardiovascular: + edema; no chest pain Gastrointestinal: + bloating; no abdominal pain, no nausea, no vomiting, no constipation, no diarrhea/loose stools, no blood in stools and no melena Physical Exam Constitutional: well developed and well nourished; no acute distress Eyes: PERRL, conjunctivae normal, anicteric sclerae ENMT: external ear and nose normal, oropharynx normal Neck: trachea midline, no thyromegaly Respiratory: normal respiratory effort, lungs clear to auscultation Cardiovascular: Rate/Rhythm: regular rate and regular rhythm Heart Sounds: normal S1 and normal S2; no murmur Vessels: no JVD Extremities: normal capillary refill and + edema Gastrointestinal (Abdomen): Inspection/Auscultation: + abdomen distended and normal bowel sounds Percussion/Palpation: abdomen soft and + ascites; abdomen nontender Musculoskeletal: no cyanosis or clubbing, extremities motor strength 5/5 Skin: + jaundice; no rashes Neurologic: patellar DTR's 2+ bilat, sensation intact and PERRL, EOMI, accommodation nl, no face palsy, no dysarthria Psychiatric: A+Ox3, euthymic affect Lymphatic: no cervical or axillary lymphadenopathy Results & Data Results & Data ([facility]) Vital Signs (Past 12 Hours) Vital Signs Temp Pulse Resp BP Pulse Ox 10/05/19 12:00 37 C 10/05/19 11:30 81 28 H 133/70 93 10/05/19 10:03 87 26 H 120/72 96 10/05/19 09:02 83 20 129/73 94 10/05/19 08:02 88 24 140/81 93 10/05/19 08:00 37.2 C 90 10/05/19 07:34 90 19 143/73 H 96 10/05/19 07:00 87 26 H 93 10/05/19 06:02 80 15 171/89 H 93 10/05/19 06:00 70 14 95 10/05/19 05:06 94 10/05/19 04:02 70 15 141/89 H 96 10/05/19 04:00 70 11 L 94 10/05/19 03:02 91 H 15 146/86 H 93 10/05/19 03:00 96 H 20 93 10/05/19 02:02 69 16 134/85 93 10/05/19 02:00 72 16 93 Laboratory Results Laboratory Results - last 24 hr 10/04/19 10/04/19 10/04/19 06:37 13:00 13:00 WBC RBC Hgb Hct MCV MCH MCHC RDW Std Deviation RDW Coeff of Aleah Plt Count MPV Immature Gran % (Auto) Neut % (Auto) Lymph % (Auto) [place] % (Auto) Eos % (Auto) Baso % (Auto) Neut # (Auto) Lymph # (Auto) [place] # (Auto) Eos # (Auto) Baso # (Auto) Immature Gran # (Auto) Giant Platelets PT INR APTT PTT Ratio Sodium 131 L Potassium 4.4 D Chloride 100 Carbon Dioxide 24 Anion Gap 7.0 BUN 11 Creatinine 0.68 Est Cr Clr Drug Dosing 150.3 Est GFR ( Amer) 121.2 Est GFR (Non-Af Amer) 104.5 BUN/Creatinine Ratio 16.1 Glucose 140 H Lactate Calcium 7.8 L Phosphorus Magnesium Total Bilirubin 6.6 H Direct Bilirubin AST 107 H ALT 62 Alkaline Phosphatase 115 Troponin I Total Protein 5.8 L Albumin 2.2 L Globulin 3.6 Albumin/Globulin Ratio 0.6 L Ethyl Alcohol mg/dL < 3.0 Hepatitis A IgM Ab NON-REACTIVE Hep B Core IgM Ab NON-REACTIVE 10/04/19 10/05/19 10/05/19 20:06 04:12 04:12 WBC 7.42 RBC 3.08 L Hgb 11.3 L 10.7 L Hct 33.0 L 31.1 L MCV 101.0 H MCH 34.7 H MCHC 34.4 RDW Std Deviation 54.1 H RDW Coeff of Aleah 14.7 H Plt Count 72 L MPV 9.8 Immature Gran % (Auto) 0.3 Neut % (Auto) 62.9 Lymph % (Auto) 24.5 [place] % (Auto) 10.0 Eos % (Auto) 1.8 Baso % (Auto) 0.5 Neut # (Auto) 4.67 Lymph # (Auto) 1.82 [place] # (Auto) 0.74 H Eos # (Auto) 0.13 Baso # (Auto) 0.04 Immature Gran # (Auto) 0.02 Giant Platelets 1+ PT 17.3 H INR 1.7 H APTT 35.9 H PTT Ratio 1.3 Sodium Potassium Chloride Carbon Dioxide Anion Gap BUN Creatinine Est Cr Clr Drug Dosing Est GFR ( Amer) Est GFR (Non-Af Amer) BUN/Creatinine Ratio Glucose Lactate Calcium Phosphorus Magnesium Total Bilirubin Direct Bilirubin AST ALT Alkaline Phosphatase Troponin I Total Protein Albumin Globulin Albumin/Globulin Ratio Ethyl Alcohol mg/dL Hepatitis A IgM Ab Hep B Core IgM Ab 10/05/19 10/05/19 10/05/19 04:12 04:12 07:00 WBC RBC Hgb Hct MCV MCH MCHC RDW Std Deviation RDW Coeff of Aleah Plt Count MPV Immature Gran % (Auto) Neut % (Auto) Lymph % (Auto) [place] % (Auto) Eos % (Auto) Baso % (Auto) Neut # (Auto) Lymph # (Auto) [place] # (Auto) Eos # (Auto) Baso # (Auto) Immature Gran # (Auto) Giant Platelets PT INR APTT PTT Ratio Sodium 135 L Potassium 4.0 Chloride 104 Carbon Dioxide 25 Anion Gap 6.0 BUN 13 Creatinine 0.69 Est Cr Clr Drug Dosing 148.1 Est GFR ( Amer) 120.4 Est GFR (Non-Af Amer) 103.9 BUN/Creatinine Ratio 19.4 Glucose 108 H Lactate 1.3 Calcium 7.6 L Phosphorus 2.5 Magnesium 1.7 L Total Bilirubin 6.7 H Direct Bilirubin 3.7 H AST 124 H ALT 66 Alkaline Phosphatase 110 Troponin I 0.017 Total Protein 5.7 L Albumin 2.2 L Globulin Albumin/Globulin Ratio Ethyl Alcohol mg/dL Hepatitis A IgM Ab Hep B Core IgM Ab Medications Administered Current Inpatient Medications Albuterol (Duoneb) 3 ml INH Q4H PRN PRN Reason: Dyspnea Stop: 11/03/19 04:29 Folic Acid (Folvite) 400 mcg PO QAM RONI Stop: 11/05/19 08:59 Octreotide Acetate 500 mcg/ (Sodium Chloride) 105 mls @ 10 mls/hr IV .[id number] [facility]ON[facility] Stop: 10/07/19 05:00 Last Admin: 10/05/19 07:45 Dose: 10 mls/hr Documented by: Lorazepam (Ativan) 1 mg in 2 mls @ 2 mls/min IV UD PRN; Protocol PRN Reason: EtOH Withdrawl AWSS Score 6,7 Stop: 11/03/19 06:25 Lorazepam (Ativan) 2 mg in 4 mls @ 4 mls/min IV UD PRN; Protocol PRN Reason: EtOH Withdrawl AWSS Score 8,9 Stop: 11/03/19 06:25 Lorazepam (Ativan) 3 mg in 6 mls @ 4 mls/min IV ONCE PRN; Protocol PRN Reason: EtOH Withdrawl AWSS Score >=10 Stop: 11/03/19 06:25 Ceftriaxone Sodium 2,000 mg/ (Dextrose) 70 mls @ 100 mls/hr IV Q24H [facility]ONI; Protocol Stop: 10/14/19 10:59 Last Infusion: 10/05/19 13:32 Dose: Infused Documented by: Pantoprazole Sodium 40 mg/ (Syringe) 10 mls @ 5 mls/min IV BID RONI Stop: 11/04/19 08:59 Last Admin: 10/05/19 07:47 Dose: 5 mls/min Documented by: Ioversol (Optiray 320 100ml) 100 ml IV ONCE PRN PRN Reason: Interaction Checking Stop: 10/08/19 01:53 Last Admin: 10/04/19 01:54 Dose: 93 ml Documented by: Metoprolol Tartrate (Lopressor) 5 mg IV Q4 PRN PRN Reason: Blood Pressure - High Stop: 11/03/19 07:59 Miscellaneous (Icu Protocol For Hyperglycemia) 1 ea N/A PRN PRN; Protocol PRN Reason: Hyperglycemia Protocol Stop: 10/06/19 04:29 Thiamine HCl (Vitamin B-1) 100 mg PO QAM [facility] Stop: 11/05/19 08:59 PG Care Time/CCT Total # of Minutes Spent Total Time Spent with Patient: Total time spent is greater than 50% in coordination of care (as documented) at patient's floor/unit and/or counseling patient: Coding Level of Care Code 22926 Subseq Hosp Care Lvl 3 Diagnoses Upper GI bleeding K92.2 Liver cirrhosis K70.31 Ascites presence: with ascites Hepatic cirrhosis type: alcoholic cirrhosis Ascites due to alcoholic cirrhosis K70.31 Anasarca R60.1 Non-STEMI (non-ST elevated myocardial infarction) I21.4 Hypoalbuminemia E88.09 Thrombocytopenia D69.6 Hypomagnesemia E83.42 Lactic acidosis E87.2 Coagulopathy D68.9 Hyponatremia E87.1 Admitted to intensive care unit Z78.9 Hypertension I10 Hypertension type: essential hypertension (1) Liver cirrhosis Ascites presence: with ascites Hepatic cirrhosis type: alcoholic cirrhosis Qualified Code(s): K70.31 - Alcoholic cirrhosis of liver with ascites (2) Hypertension Hypertension type: essential hypertension Qualified Code(s): I10 - Essential (primary) hypertension
[2019-10-05] MEDS: carvediloL 6.25 MG TAB PO SCH (20:19)
--- NOTE | 2019-10-05 22:39 | Electrocardiogram Report ---
Test Reason : Blood Pressure : / mmHG Vent. Rate : 089 BPM Atrial Rate : 089 BPM P-R Int : 168 ms QRS Dur : 086 ms QT Int : 400 ms P-R-T Axes : 061 -04 054 degrees QTc Int : 486 ms Normal sinus rhythm Low voltage QRS Prolonged QT Abnormal ECG When compared with ECG of 04-OCT-2019 01:03, Minimal criteria for Septal infarct are no longer Present Confirmed by Toby Sanz ([id number]) on 10/05/2019 10:39:31 PM Referred By: REFERRED SELF Confirmed By:Toby Sanz
[2019-10-06] MEDS: OCTREOTIDE ACETATE 500 MCG in 0.9 % SODIUM CHLORIDE 100 ML IV SCH ×3 (05:22→23:42)
[2019-10-06 08:02] LABS: Hematocrit (blood only) 29.3 % (42-52); Hemoglobin 10.2 g/dL (14.0-18.0); Mean Corpuscular Hemoglobin 35.7 pg (25-34); Mean Corpuscular Hgb Conc 34.8 g/dL (32-36); Mean Corpuscular Volume 102.4 fL (80-100); RDW Coefficient of Variation 14.4 % (11.5-14.5); Red Blood Count 2.86 M/uL (4.7-6.1); White Blood Count 7.56 K/uL (4.8-10.8)
[2019-10-06 08:07] LABS: Mean Platelet Volume 10.3 fL (7.4-10.4); Platelet Count 75 K/uL (130-400)
[2019-10-06 08:12] LABS: INR 1.6 (0.9-1.1); Partial Thromboplastin Ratio 1.3; Prothrombin Time 16.7 Seconds (9.0-12.0)
[2019-10-06 08:23] LABS: Basophils # (auto) 0.04 K/uL (0-0.2); Basophils % (auto) 0.5 %; Eosinophils # (auto) 0.19 K/uL (0-0.5); Eosinophils % (auto) 2.5 %; Immature Granulocytes # (auto) 0.02 K/uL (0.00-0.02); Immature Granulocytes % (auto) 0.3 %; Lymphocytes # (auto) 1.44 K/uL (1.2-3.4); Monocytes # (auto) 0.58 K/uL (0.11-0.59); Monocytes % (auto) 7.7 %; Neutrophils # (auto) 5.29 K/uL (1.4-6.5)
[2019-10-06 08:37] LABS: Albumin Level 2.3 gm/dl (3.4-5.0); BUN Creatinine Ratio 15.5 (10-20); Bilirubin Direct 4.5 mg/dl (0-0.2); Bilirubin,Total 7.4 mg/dl (0.2-1); Calcium 7.8 mg/dl (8.5-10.1); Creatinine Clr Calc Pharmacy 152.5 ml/min; Est GFR (African American) 121.9; Est GFR (Non-African American) 105.2; Magnesium 1.9 mg/dl (1.8-2.4); Phosphorus 2.7 mg/dl (2.5-4.9); Potassium 3.6 mmol/L (3.5-5.1); Total Protein 6.1 gm/dl (6.4-8.2)
[2019-10-06] MEDS: FOLIC ACID 400 MCG TAB PO SCH (08:50)
[2019-10-06] MEDS: THIAMINE HCL 100 MG TAB PO SCH (08:50)
[2019-10-06] MEDS: carvediloL 6.25 MG TAB PO SCH ×2 (08:50→21:13)
[2019-10-06] MEDS: PANTOprazole 40 MG in SYRINGE 0 ML IV SCH ×2 (08:50→21:13)
--- NOTE | 2019-10-06 10:10 | Gastroenterology Progress Note ---
Date of Service October 06, 2019 Assessment & Plan (1) GI bleed: (2) Alcohol abuse: (3) Coagulopathy: (4) Liver cirrhosis: 1. Diet advanced to full liquids and then to soft diet as tolerated. 2. Continue PPI/Octreotide GGTs x 72 hours. 3. Will add Lasix 40 mg and Aldactone 100 mg daily. 4. EGD in 4 weeks for evaluation of need for rebanding. Our office is in process of arranging. Will hold off on NSSB until after the procedure as he is undergoing variceal eradication via EVL. 5. MELD 22 today. No evidence of acute encephalopathy. INR improving. Will need ongoing outpatient follow up with HCC surveillance and consideration of hepatology/transplant evaluation. 6. Counseled patient on risks on ongoing ETOH/NSAID use in the setting decompensated cirrhosis. 7. Continue supportive care. Admission and Anticipated Discharge Date Admission Date: October 04, 2019 Supervising Physician Co-Signing Physician Notes I personally evaluated the patient and agree with the findings as documented by LAURA Kirk Exam: abd: soft, nt, distended, obese started diuretics for ascites today, no further bleeding reported. EGD in 4 weeks as an outpatient. will sign off at this time, recall as needed. Subjective Patient reports feeling well. He continues with lower extremity edema. No ab dominal pain. No n/v/hematemesis. Denies any further melena. Continues PPI/Octreotide GGTs. Desires discharge when able. INR down to 1.6. H&H remains stable. Slightly worsened TB. Review of Systems Review of Systems: All systems reviewed & are unremarkable except as noted in HPI & below Physical Exam Constitutional: WD/WN, vitals as above Respiratory: normal respiratory effort, lungs clear to auscultation Cardiovascular: RRR, no murmur, no edema Gastrointestinal (Abdomen): Inspection/Auscultation: + abdomen distended and normal bowel sounds Percussion/Palpation: abdomen nontender Musculoskeletal: Extremities: + lower leg abnormality Bilateral (edema) Psychiatric: A+Ox3, euthymic affect Results & Data Results & Data ([facility]) Vital Signs (Past 12 Hours) Vital Signs Temp Pulse Pulse Pulse Resp BP Pulse Ox 10/06/19 08:00 62 10/06/19 07:53 36.7 C 67 18 134/73 96 10/06/19 03:05 36.8 C 88 19 143/76 H 97 10/05/19 23:26 36.9 C 68 17 125/81 98 Laboratory Results Abnormal lab results 10/05/19 10/05/19 10/06/19 Range/Units 16:22 20:54 07:33 RBC (4.7-6.1) M/uL Hgb (14.0-18.0) g/dL Hct (42-52) % MCV (80-100) fL MCH (25-34) pg RDW Std Deviation (36.4-46.3) fL Plt Count (130-400) K/uL PT (9.0-12.0) Seconds INR (0.9-1.1) APTT (21.0-31.0) Seconds Sodium (136-145) mmol/L Glucose (70-99) mg/dl POC Glucose 156 H 138 H 125 H (70-99) mg/dl Calcium (8.5-10.1) mg/dl Total Bilirubin (0.2-1) mg/dl Direct Bilirubin (0-0.2) mg/dl AST (15-37) U/L ALT (12-78) U/L Total Protein (6.4-8.2) gm/dl Albumin (3.4-5.0) gm/dl 10/06/19 10/06/19 10/06/19 Range/Units 07:34 07:34 07:34 RBC 2.86 L (4.7-6.1) M/uL Hgb 10.2 L (14.0-18.0) g/dL Hct 29.3 L (42-52) % MCV 102.4 H (80-100) fL MCH 35.7 H (25-34) pg RDW Std Deviation 54.0 H (36.4-46.3) fL Plt Count 75 L (130-400) K/uL PT 16.7 H (9.0-12.0) Seconds INR 1.6 H (0.9-1.1) APTT 35.0 H (21.0-31.0) Seconds Sodium 133 L (136-145) mmol/L Glucose 122 H (70-99) mg/dl POC Glucose (70-99) mg/dl Calcium 7.8 L (8.5-10.1) mg/dl Total Bilirubin 7.4 H (0.2-1) mg/dl Direct Bilirubin 4.5 H (0-0.2) mg/dl AST 147 H (15-37) U/L ALT 79 H (12-78) U/L Total Protein 6.1 L (6.4-8.2) gm/dl Albumin 2.3 L (3.4-5.0) gm/dl PG Care Time/CCT Total # of Minutes Spent Total Time Spent with Patient: Total time spent is greater than 50% in coordination of care (as documented) at patient's floor/unit and/or counseling patient: Coding Level of Care Code 85071 Subseq Hosp Care Lvl 3 Diagnoses GI bleed K92.1 GI bleed type/associated pathology: melena Alcohol abuse F10.10 Coagulopathy D68.9 Liver cirrhosis K70.31 Ascites presence: with ascites Hepatic cirrhosis type: alcoholic cirrhosis (1) GI bleed GI bleed type/associated pathology: melena Qualified Code(s): K92.1 - Melena (2) Liver cirrhosis Ascites presence: with ascites Hepatic cirrhosis type: alcoholic cirrhosis Qualified Code(s): K70.31 - Alcoholic cirrhosis of liver with ascites
[2019-10-06] MEDS: FUROSEMIDE 40 MG TAB PO SCH (10:58)
[2019-10-06] MEDS: cefTRIAXone SODIUM 2,000 MG in DEXTROSE 5% 50 ML IV SCH (10:58)
[2019-10-06] MEDS: SPIRONOLACTONE 100 MG TAB PO SCH (11:40)
--- NOTE | 2019-10-06 14:36 | Hospitalist Progress Note ---
Date of Service October 06, 2019 Assessment & Plan (1) Upper GI bleeding: Upper GI bleeding- due to large esophageal varices in setting of alcohol cirrhosis continue Protonix drip and octreotide drip (until 10/06) allow soft foods starting tonight, tolerating full liquid Hb is stable, > 10, blood pressure stable Zofran 4 mg IV every 6 hours as needed, no vomiting empiric Rocephin with varices while he is admitted tolerating Coreg 6.25mg BID (2) Liver cirrhosis: Alcoholic liver cirrhosis/ascites/anasarca- Banana bag - change to PO thiamine and folic acid bili elevated at 7 elevated INR at 1.7 MELD score 22 at this time understands that he cannot drink anymore he says that he is not sure he would be interested in liver transplant his a few years ago, he denies having any family close by not much family/social support started on Lasix 40mg and Aldactone 100mg today, already making more urine started on Coreg 6.25mg BID for varices, tolerating well plan to d/c to home tomorrow with GI follow up (3) Ascites due to alcoholic cirrhosis: See above treat with Lasix and Aldactone (4) Anasarca: See above also, treat with Lasix and Aldactone low sodium diet recommended (5) Non-STEMI (non-ST elevated myocardial infarction): NSTEMI ruled out, this was demand ischemia d/w cardiology no further work up (6) Hypoalbuminemia: Albumin 2.6 upon admission due to poor nutrition and cirrhosis (7) Thrombocytopenia: platelets low at 75k, due to cirrhosis follow (8) Hypomagnesemia: Magnesium 1.4 upon admission. up to 1.7 yesterday (9) Lactic acidosis: Lactic acid 3.7 upon admission. down to normal now (10) Coagulopathy: coagulopathy due to cirrhosis received Vitamin K on admission, not much effect no need for further dosing (11) Hyponatremia: Sodium 128 upon admission up to 133, this is hypervolume hyponatremia in setting of ascites (12) Hypertension: As an outpatient, the patient was on lisinopril 40 mg daily and HCTZ 25 mg daily, both of which were held. started on Coreg 6.25mg BID and now on Lasix 40mg and Aldactone 100mg BP is low normal will discontinue Lisinopril and HCTZ on discharge Admission and Anticipated Discharge Date Admission Date: October 04, 2019 Subjective patient feeling okay today, he is itching to leave, wanted to confirm that he will get out in the morning his octreotide drip will be at 72 hours tomorrow morning reviewed labs, Hb stable at 10, Cr stable, Bili up at 7, INR 1.7 appreciate note from GI, started on Aldactone and Lasix he is tolerating the Coreg discussed at length the need to remain sober, any further alcohol will damage his liver discussed that he cannot even be considered for liver transplant if he has been drinking in the past 6 months he said that he is not sure he would want to go through a liver transplant told him that even if that is the case, drinking will make his quality of life worse, shorten his life expectancy Review of Systems Review of Systems: All systems reviewed & are unremarkable except as noted in Subjective Cardiovascular: + edema Gastrointestinal: no abdominal pain, no nausea, no vomiting, no constipation and no diarrhea/loose stools Genitourinary: + urinary frequency (making a lot of urine since starting Lasix) Physical Exam Constitutional: well developed and well nourished; no acute distress Eyes: PERRL, conjunctivae normal, anicteric sclerae ENMT: external ear and nose normal, oropharynx normal Neck: trachea midline, no thyromegaly Respiratory: normal respiratory effort, lungs clear to auscultation Cardiovascular: Rate/Rhythm: regular rate and regular rhythm Heart Sounds: normal S1 and normal S2; no murmur Vessels: no JVD Extremities: normal capillary refill and + edema Gastrointestinal (Abdomen): Inspection/Auscultation: + abdomen distended and normal bowel sounds Percussion/Palpation: abdomen soft and + ascites; abdomen nontender Musculoskeletal: no cyanosis or clubbing, extremities motor strength 5/5 Skin: + jaundice; no rashes Neurologic: patellar DTR's 2+ bilat, sensation intact and PERRL, EOMI, accommodation nl, no face palsy, no dysarthria Psychiatric: A+Ox3, euthymic affect Lymphatic: no cervical or axillary lymphadenopathy Results & Data Results & Data ([facility]) Vital Signs (Past 12 Hours) Vital Signs Temp Pulse Pulse Pulse Resp BP Pulse Ox 10/06/19 11:43 36.5 C 60 18 103/63 96 10/06/19 08:00 62 10/06/19 07:53 36.7 C 67 18 134/73 96 10/06/19 03:05 36.8 C 88 19 143/76 H 97 Laboratory Results Laboratory Results - last 24 hr 10/05/19 10/05/19 10/06/19 16:22 20:54 07:33 WBC RBC Hgb Hct MCV MCH MCHC RDW Std Deviation RDW Coeff of Aleah Plt Count MPV Immature Gran % (Auto) Neut % (Auto) Lymph % (Auto) [place] % (Auto) Eos % (Auto) Baso % (Auto) Neut # (Auto) Lymph # (Auto) [place] # (Auto) Eos # (Auto) Baso # (Auto) Immature Gran # (Auto) PT INR APTT PTT Ratio Sodium Potassium Chloride Carbon Dioxide Anion Gap BUN Creatinine Est Cr Clr Drug Dosing Est GFR ( Amer) Est GFR (Non-Af Amer) BUN/Creatinine Ratio Glucose POC Glucose 156 H 138 H 125 H Calcium Phosphorus Magnesium Total Bilirubin Direct Bilirubin AST ALT Alkaline Phosphatase Total Protein Albumin 10/06/19 10/06/19 10/06/19 07:34 07:34 07:34 WBC 7.56 RBC 2.86 L Hgb 10.2 L Hct 29.3 L MCV 102.4 H MCH 35.7 H MCHC 34.8 RDW Std Deviation 54.0 H RDW Coeff of Aleah 14.4 Plt Count 75 L MPV 10.3 Immature Gran % (Auto) 0.3 Neut % (Auto) 70.0 Lymph % (Auto) 19.0 [place] % (Auto) 7.7 Eos % (Auto) 2.5 Baso % (Auto) 0.5 Neut # (Auto) 5.29 Lymph # (Auto) 1.44 [place] # (Auto) 0.58 Eos # (Auto) 0.19 Baso # (Auto) 0.04 Immature Gran # (Auto) 0.02 PT 16.7 H INR 1.6 H APTT 35.0 H PTT Ratio 1.3 Sodium 133 L Potassium 3.6 Chloride 100 Carbon Dioxide 25 Anion Gap 8.0 BUN 10 Creatinine 0.67 Est Cr Clr Drug Dosing 152.5 Est GFR ( Amer) 121.9 Est GFR (Non-Af Amer) 105.2 BUN/Creatinine Ratio 15.5 Glucose 122 H POC Glucose Calcium 7.8 L Phosphorus 2.7 Magnesium 1.9 Total Bilirubin 7.4 H Direct Bilirubin 4.5 H AST 147 H ALT 79 H Alkaline Phosphatase 117 Total Protein 6.1 L Albumin 2.3 L Medications Administered Current Inpatient Medications Albuterol (Duoneb) 3 ml INH Q4H PRN PRN Reason: Dyspnea Stop: 11/03/19 04:29 Carvedilol (Coreg) 6.25 mg PO BID [facility] Stop: 11/04/19 20:59 Last Admin: 10/06/19 08:50 Dose: 6.25 mg Documented by: Folic Acid (Folvite) 400 mcg PO QAM [facility] Stop: 11/05/19 08:59 Last Admin: 10/06/19 08:50 Dose: 400 mcg Documented by: Furosemide (Lasix) 40 mg PO QAM [facility] Stop: 11/05/19 10:29 Last Admin: 10/06/19 10:58 Dose: 40 mg Documented by: Octreotide Acetate 500 mcg/ (Sodium Chloride) 105 mls @ 10 mls/hr IV .[id number] [facility] Stop: 10/07/19 05:00 Last Admin: 10/06/19 14:30 Dose: 10 mls/hr Documented by: Lorazepam (Ativan) 1 mg in 2 mls @ 2 mls/min IV UD PRN; Protocol PRN Reason: EtOH Withdrawl AWSS Score 6,7 Stop: 11/03/19 06:25 Lorazepam (Ativan) 2 mg in 4 mls @ 4 mls/min IV UD PRN; Protocol PRN Reason: EtOH Withdrawl AWSS Score 8,9 Stop: 11/03/19 06:25 Lorazepam (Ativan) 3 mg in 6 mls @ 4 mls/min IV ONCE PRN; Protocol PRN Reason: EtOH Withdrawl AWSS Score >=10 Stop: 11/03/19 06:25 Ceftriaxone Sodium 2,000 mg/ (Dextrose) 70 mls @ 100 mls/hr IV Q24H [facility]; Protocol Stop: 10/14/19 10:59 Last Infusion: 10/06/19 11:43 Dose: Infused Documented by: Pantoprazole Sodium 40 mg/ (Syringe) 10 mls @ 5 mls/min IV BID [facility] Stop: 11/04/19 08:59 Last Admin: 10/06/19 08:50 Dose: 5 mls/min Documented by: Ioversol (Optiray 320 100ml) 100 ml IV ONCE PRN PRN Reason: Interaction Checking Stop: 10/08/19 01:53 Last Admin: 10/04/19 01:54 Dose: 93 ml Documented by: Metoprolol Tartrate (Lopressor) 5 mg IV Q4 PRN PRN Reason: Blood Pressure - High Stop: 11/03/19 07:59 Spironolact[facility] ([facility]one) [facility] [place] Stop: 11/05/19 10:29 Last Admin: 10/06/19 11:40 Dose: 100 mg Documented by: Thiamine HCl (Vitamin B-1) 100 mg PO QAM [facility] Stop: 11/05/19 08:59 Last Admin: 10/06/19 08:50 Dose: 100 mg Documented by: PG Care Time/CCT Total # of Minutes Spent Total Time Spent with Patient: Total time spent is greater than 50% in coordination of care (as documented) at patient's floor/unit and/or counseling patient: Coding Level of Care Code 64540 Subs Hosp Care [facility] 3 Diagnoses Upper GI bleeding K92.2 Liver cirrhosis K70.31 Ascites presence: with ascites Hepatic cirrhosis type: alcoholic cirrhosis Ascites due to alcoholic cirrhosis K70.31 Anasarca R60.1 Non-STEMI (non-ST elevated myocardial infarction) I21.4 Hypoalbuminemia E88.09 Thrombocytopenia D69.6 Hypomagnesemia E83.42 Lactic acidosis E87.2 Coagulopathy D68.9 Hyponatremia E87.1 Hypertension I10 Hypertension type: essential hypertension (1) Liver cirrhosis Ascites presence: with ascites Hepatic cirrhosis type: alcoholic cirrhosis Qualified Code(s): K70.31 - Alcoholic cirrhosis of liver with ascites (2) Hypertension Hypertension type: essential hypertension Qualified Code(s): I10 - Essential (primary) hypertension
--- NOTE | 2019-10-06 16:03 | Electrocardiogram Report ---
Test Reason : Blood Pressure : / mmHG Vent. Rate : 063 BPM Atrial Rate : 063 BPM P-R Int : 172 ms QRS Dur : 086 ms QT Int : 458 ms P-R-T Axes : 061 -02 039 degrees QTc Int : 468 ms Normal sinus rhythm with sinus arrhythmia Normal ECG When compared with ECG of 05-OCT-2019 06:18, No significant change was found Confirmed by Elvin Winters ([id number]) on 10/06/2019 4:03:36 PM Referred By: REFERRED SELF Confirmed By:Elvin Winters
[2019-10-07 07:53] LABS: Hematocrit (blood only) 30.1 % (42-52); Hemoglobin 10.6 g/dL (14.0-18.0)
[2019-10-07 08:20] LABS: Albumin Globulin Ratio 0.7 (0.9-2); Albumin Level 2.4 gm/dl (3.4-5.0); BUN Creatinine Ratio 14.1 (10-20); Bilirubin,Total 6.9 mg/dl (0.2-1); Calcium 7.6 mg/dl (8.5-10.1); Creatinine Clr Calc Pharmacy 142.9 ml/min; Est GFR (African American) 118.3; Est GFR (Non-African American) 102.1; Globulin 3.7 gm/dl (2.5-4.0); Potassium 3.5 mmol/L (3.5-5.1); Total Protein 6.1 gm/dl (6.4-8.2)
--- NOTE | 2019-10-07 08:54 | Discharge Summary ---
Date of Service October 07, 2019 Admission HPI Per Admitting Provider The patient is a 58-year-old male with a past medical history of hypertension, who reports he injured his back a few weeks ago and has been taking Advil since that time for relief. He reports that yesterday morning about 24 hours ago, he went to the bathroom early in the morning, and had dark stools. He has not had an issue with dark stools in the past. He has not eaten since that time, and has not had a bowel movement since then. He reports that he saves his alcohol intake for the weekends, and typically drinks about 7 to 80 ounces of water a day. Principal Diagnosis Upper GI bleed due to esophageal varices secondary to cirrhosis Discharge Exam Constitutional well developed and well nourished; no acute distress Eyes PERRL, conjunctivae normal, anicteric sclerae ENMT external ear and nose normal, oropharynx normal Neck trachea midline, no thyromegaly Respiratory normal respiratory effort, lungs clear to auscultation Cardiovascular Rate/Rhythm: regular rate and regular rhythm Heart Sounds: normal S1 and normal S2; no murmur Vessels: no JVD Extremities: normal capillary refill and + edema Gastrointestinal (Abdomen) Inspection/Auscultation: + abdomen distended and normal bowel sounds Percussion/Palpation: abdomen soft and + ascites; abdomen nontender Musculoskeletal no cyanosis or clubbing, extremities motor strength 5/5 Skin + jaundice; no rashes Neurologic patellar DTR's 2+ bilat, sensation intact and PERRL, EOMI, accommodation nl, no face palsy, no dysarthria Psychiatric A+Ox3, euthymic affect Lymphatic no cervical or axillary lymphadenopathy Discharge Data Allergies Allergy/AdvReac Type Severity Reaction Status Date / Time No Known Allergies Allergy Unverified 10/04/19 00:46 Consultations 10/04/19 03:43 ED Decision to Admit Stat 10/04/19 04:24 Consult Gastroenterology Routine 10/04/19 04:25 Consult Cardiology Routine 10/04/19 04:30 Consult Case Management - Discharge Planning Routine Consult Forensic Psychiatrist Routine Procedures Performed Operation Date: 10/04/19 10:20 Actual Procedures p Esophagogastroduodenoscopy, banding of varices. - Maximo Maurice MD Ordered Studies 10/04/19 01:26 CT Abd and Pelvis [CT abd pelvis IV con only] Urgent 10/04/19 06:26 US liver Urgent 10/04/19 06:44 US duplex portal hepatic veins Urgent Hospital Course (1) Upper GI bleeding: Upper GI bleeding- due to large esophageal varices in setting of alcohol cirrhosis treated with Protonix drip and octreotide drip (until 10/06) tolerating soft foods Hb is stable, > 10, blood pressure stable Zofran 4 mg IV every 6 hours as needed, no vomiting empiric Rocephin with varices while he is admitted tolerating Coreg 3.125mg BID discharge to home, will need repeat EGD in 4 weeks, number for [facility] provided (2) Liver cirrhosis: Alcoholic liver cirrhosis/ascites/anasarca- Banana bag - change to PO thiamine and folic acid, will continue these on discharge bili elevated at 7 elevated INR at 1.7 MELD score 22 at this time understands that he cannot drink anymore he says that he is not sure he would be interested in liver transplant his a few years ago, he denies having any family close by not much family/social support very specific instructions provided on abstaining from alcohol and the dangers of drinking, even a small amount started on Lasix 40mg and Aldactone 100mg today, already making more urine, will continue on discharge started on Coreg 3.125mg BID for varices, tolerating well plan to d/c to home tomorrow with GI follow up in 2-4 weeks (3) Ascites due to alcoholic cirrhosis: See above treat with Lasix and Aldactone (4) Anasarca: See above also, treat with Lasix and Aldactone low sodium diet recommended and fluid restriction of < 2 liters a day (5) Non-STEMI (non-ST elevated myocardial infarction): NSTEMI ruled out, this was demand ischemia d/w cardiology no further work up (6) Hypoalbuminemia: Albumin 2.6 upon admission due to poor nutrition and cirrhosis (7) Thrombocytopenia: platelets low at 75k, due to cirrhosis follow (8) Hypomagnesemia: Magnesium 1.4 upon admission. up to 1.7 yesterday (9) Lactic acidosis: Lactic acid 3.7 upon admission. down to normal now (10) Coagulopathy: coagulopathy due to cirrhosis received Vitamin K on admission, not much effect no need for further dosing (11) Hyponatremia: Sodium 128 upon admission up to 133, this is hypervolume hyponatremia in setting of ascites (12) Hypertension: As an outpatient, the patient was on lisinopril 40 mg daily and HCTZ 25 mg daily, both of which were held. started on Coreg 3.125mg BID and now on Lasix 40mg and Aldactone 100mg BP is low normal will discontinue Lisinopril and HCTZ on discharge Total Time Total Time Spent Total Time Spent (In Minutes): 37 minutes Total Time Includes: Examination of the Patient (long conversation about cirrhosis, alcohol abstinence, close follow up, dietary changes), Discharge Planning and Medication Reconciliation Discharge Plan Discharge Items Patient Disposition: Home - Self-Care Reason For Visit: UGI BLEED, ALCHOLIC CIRRHOSIS COAGULOPATHY, ANASAR Discharge Diagnosis: Upper GI bleed due to esophageal varices Alcohol abuse Alcoholic cirrhosis with ascites Anemia Thrombocytopenia Condition on Discharge: Good Goals: medical management of cirrhosis with Coreg, Lasix and Aldactone follow up closely with gastroenterology Activity: Resume your previous activity Driving/Machine Use: No limitations Weightbearing: Full weightbearing Non-emergency contact: Primary Care Provider and [employer] Call non-emergency contact if: you have any medication questions and your symptoms worsen Follow-up/Referrals: Maximo Maurice MD [Physician] - (2 weeks) PCP,BETH [Primary Care Provider] - Diet: Low Sodium (2gm) Fluids: 2000ml (8 cups) Addtl Attending Provider Instructions: Medications: all medications are intended to treat cirrhosis, keep fluid off - CARVIDILOL: 3.125mg twice a day, this helps lower portal pressure and decrease further varices please go to [employer] for a discount card, is only $10 for 60 tablets - FUROSEMIDE: 40mg in the morning, once a day - SPIRONOLACTONE: 100mg in the morning, once a day Thiamine and Folic Acid: can buy these over the counter in Vitamin section of [employer] Lisinopril and Hydrochlorothiazide: STOP taking these medications Upper GI bleeding due to esophageal varices: treated with banding no signs of further bleeding, hemoglobin is stable GI will want to see you in 4 weeks for repeat EGD Cirrhosis due to alcohol abuse clear evidence of significant damage done to your liver, entirely due to alcohol abuse you have esophageal varices from increased portal pressure you have ascites (fluid in the belly) also from increased pressure you have coagulopathy with elevated INR and low platelets, due to liver dysfunction you have elevated bilirubin, also due to liver dysfunction carvedilol will help lower portal pressure, decrease chances of further varices furosemide and spironolactone are diuretics that will help to keep fluid levels tolerable you need to follow low sodium diet of less than 2gm a day and fluid restriction of no more than 2 liters a day, if you can drink less that would be better eat a healthy diet with fruits, vegetables, lean protein Above all else, abstain from all alcohol as any further alcohol will damage the liver your liver cannot process alcohol due to the damage that has been done, any amount of alcohol could cause hepatitis (inflammation) and will further deteriorate liver function this will decrease your quality of life if you want to have quality of life, avoid alcohol completely, take your medications, follow sodium and fluid restrictions as above as we discussed, if you have any consideration for liver transplant in the fut ure, they will not consider you until you are 6 months sober Pending Studies at Discharge: No Stand-Alone Forms: My [facility], Smoking Cessation Medications and DC Order Prescriptions: New furosemide 40 mg Tablet 40 mg PO QAM 30 Days Qty: 30 RF: 3 spironolactone 100 mg Tablet 100 mg PO QAM 30 Days Qty: 30 RF: 3 thiamine HCl (vitamin B1) [Vitamin B-1] 100 mg Tablet 100 mg PO QAM 30 Days Qty: 30 RF: 3 folic acid 400 mcg Tablet 400 mcg PO QAM 30 Days Qty: 30 RF: 3 carvedilol 3.125 mg tablet 3.125 mg PO BID Qty: 60 RF: 3 No Action No Known Home Medications RF: 0 Discharge Orders: Discharge Order (Routine); Ordered 10/07/19 Ordered By: Jesse Downey/Other Patient Handouts: Signs of Alcohol Addiction Alcoholism Admission Data Admit Date/Time: 10/04/19 03:24 Attending Provider: Jesse Merida Admit Provider: Rigoberto Mead Primary Care Provider: PCP,NO Other Providers: Rigoberto Mead ; Tariq Sosa ; Toby Sanz. ; Hemant Christina Other Interventions: Discharge Summary Assessment (RN) Last Done: 10/07/19 08:51 DC Date/Time DO NOT enter until pt leaves facility: 10/07/19 10:09 Coding Level of Care Code D/C Day Management >30 mins Diagnoses Upper GI bleeding K92.2 Liver cirrhosis K70.31 Ascites presence: with ascites Hepatic cirrhosis type: alcoholic cirrhosis Ascites due to alcoholic cirrhosis K70.31 Anasarca R60.1 Non-STEMI (non-ST elevated myocardial infarction) I21.4 Hypoalbuminemia E88.09 Thrombocytopenia D69.6 Hypomagnesemia E83.42 Lactic acidosis E87.2 Coagulopathy D68.9 Hyponatremia E87.1 Hypertension I10 Hypertension type: essential hypertension
[2019-10-07] MEDS: FOLIC ACID 400 MCG TAB PO SCH (09:08)
[2019-10-07] MEDS: FUROSEMIDE 40 MG TAB PO SCH (09:09)
[2019-10-07] MEDS: SPIRONOLACTONE 100 MG TAB PO SCH (09:09)
[2019-10-07] MEDS: carvediloL 6.25 MG TAB PO SCH (09:09)
[2019-10-07] MEDS: PANTOprazole 40 MG in SYRINGE 0 ML IV SCH (09:09)
[2019-10-07] MEDS: THIAMINE HCL 100 MG TAB PO SCH (09:09)
--- NOTE | 2019-10-16 13:06 | Billing Data ---
Date of Service September Coding Level of Care Code Critical Care ea addt'l 30 min Time Spent (min) 20 Comment I have personally spent 20 minutes of critical care time in the direct management of this patient. This is a life/limb threatening event. This includes time spent evaluating patient, direct bedside care, chart review, placing orders, interpretation of diagnostic studies, discussion with consultants, patient, and/or family members regarding treatment decisions, as well as other required patient management activities. This time is exclusive of all separately billable procedures, and teaching time and separate from and in addition to any other critical care service time.
--- NOTE | 2019-10-16 13:07 | Billing Data ---
Date of Service September Coding Level of Care Code 37499 Subseq Hosp Care Lvl 3
== END 2019-10-07 10:09 | disposition home or self-care (01) | DRG 432 ==
LOC: ED 00:23 → 1E 03:24 → SUATTDRO 03:24 → 1E 04:08 → 2S 10-05 14:48

== ENCOUNTER 2024-03-20 14:17 | Inpatient (IN) ==
[2024-03-20 15:04] LABS: Albumin Globulin Ratio 0.9 (0.9-2); BUN Creatinine Ratio 7.9 (10-20); Basophils # (auto) 0.05 K/uL (0.00-0.20); Basophils % (auto) 0.5 %; Bilirubin,Total 7.1 mg/dl (0.2-1.0); Calcium 8.4 mg/dl (8.6-10.3); Creatinine Clr Calc Pharmacy 117.1 ml/min; Eosinophils # (auto) 0.05 K/uL (0.00-0.50); Eosinophils % (auto) 0.5 %; Globulin 3.4 gm/dl (2.5-4.0); Hematocrit (blood only) 34.1 % (42.0-52.0); Hemoglobin 12.1 g/dl (14.0-18.0); Immature Granulocytes # (auto) 0.07 K/uL (0.01-0.20); Immature Granulocytes % (auto) 0.8 %; Lymphocytes # (auto) 1.47 K/uL (1.20-3.40); Lymphocytes % (auto) 16.1 %; Mean Corpuscular Hgb Conc 35.5 g/dL (32.0-36.0); Mean Corpuscular Volume 98.6 fL (80.0-100.0); Monocytes # (auto) 0.85 K/uL (0.11-0.59); Monocytes % (auto) 9.3 %; Neutrophils # (auto) 6.66 K/uL (1.40-6.50); Neutrophils % (auto) 72.8 %; Platelet Count 70 K/uL (130-400); RDW Coefficient of Variation 14.6 % (11.5-14.5); RDW Standard Deviation 53.1 fL (36.4-46.3); Red Blood Count 3.46 M/uL (4.70-6.10); Total Protein 6.4 gm/dl (6.0-8.3); White Blood Count 9.15 K/ul (4.8-10.8)
[2024-03-20 15:11] LABS: Troponin I High Sensitivity 7.9 pg/ml (0-20)
--- NOTE | 2024-03-20 15:38 | Emergency Department Note ---
Impression & Plan Pedal edema, Hypomagnesemia, Hypokalemia, Jaundice, Elevated liver enzymes, Thrombocytopenia, Acute UTI ED Provider Note NAME: AGGIE FALCON (TED) AGE: 63 SEX: M : 1960 ARRIVES VIA: Walk-In INFORMANT: [Patient] ED PROVIDER(S): [Caremlo Dumont MD] CHIEF COMPLAINT: Edema HISTORY OF PRESENT ILLNESS: The patient is a 63-year-old male whose had 2 weeks of increasing pedal edema. He has seen his doctor's office and has followed their instructions to adjust his medications. He thought things were maybe slightly better although, there has not been significant improvement. He is not short of breath. There has been no fever or cough. No vomiting. The patient states that he has never had a DVT or PE, he is not on anticoagulants. The patient was told that he had cirrhosis, the cirrhosis is a result of excessive alcohol intake. He is not drinking alcohol currently. PMHx/PSHx/Social Hx: See Below PHYSICAL EXAM: GENERAL: Patient is in no acute distress. HEENT: No acute trauma, normocephalic atraumatic, mucous membranes moist, no nasal congestion. Very subtle scleral icterus. NECK: No stridor, no adenopathy, no meningismus, trachea is midline. LUNGS: Clear to auscultation bilaterally, no wheeze, no rhonchi, breath sounds equal. HEART: Without murmurs gallops or rubs, regular rate and rhythm. ABDOMEN: Soft, nontender, no peritonitis. EXTREMITIES: No cyanosis, full range of motion of all the joints without pain or difficulty. Significant pedal edema up to just past the knees bilaterally. NEUROLOGIC: Oriented x 3, no acute motor or sensory deficits, no focal weakness. SKIN: Mild jaundice, no diaphoresis. DIFFERENTIAL DIAGNOSIS: Renal or liver failure, fluid overload, CHF, DVT, electrolyte imbalance, among others. EMERGENCY DEPARTMENT PROCEDURES: MEDICAL DECISION MAKING: There is no leukocytosis. The patient is anemic however, he carries a history of anemia. There is a thrombocytopenia however, he always seems to have a lower platelet count. INR was elevated, likely from his liver disease. Sodium and potassium and magnesium were all low. Calcium was somewhat low. There were some elevated liver enzymes, in particular, the bilirubin was high at 7.1. BNP was not elevated making CHF unlikely. The patient appeared to be in a euthyroid state. Urinalysis does suggest infection. Chest x-ray did not show pneumonia or CHF. Bilateral lower extremity ultrasound did not show DVT. On exam, the patient had significant bilateral pedal edema that went above his knees. He appeared jaundiced. The patient was given IV Lasix, 40 mg. He was given IV ceftriaxone for the presumed UTI. He received IV and oral magnesium. He was given IV and oral potassium. The patient presents with significant pedal edema. He has failed outpatient treatment for this problem. He was found to have some electrolyte disturbances and a high bilirubin value. Given his findings, hospitalization is indicated. I spoke with the patient and case management, the on-call hospitalist was consulted. Prior/Outside records/notes reviewed: None ECG per my interpretation: Indication was possible CHF. The ECG shows a sinus rhythm with a PVC. The rate was 98. There was significant baseline artifact. There is no acute ST elevation. QTc is 523. Continuous Cardiac Monitoring per my interpretation: An order was placed for continuous cardiac monitoring. The monitor shows a rate of 99 with normal sinus rhythm. Imaging/x-ray results per my interpretation: Chest x-ray does not show CHF or pneumonia. Chronic Medical/Social conditions affecting care: History of cirrhosis. History of alcoholism. Care/Management discussed with: Case management, the on-call hospitalist. Level of care consideration(s): After review of the information above and other included data: --I believe the patient requires escalation of care to admission DISPOSITION: Admission Past Med/Surg History Problem List (Updated 03/20/24 @ 20:54 by Carmelo Dumont MD) Acute UTI (Acute) Thrombocytopenia (Acute) Elevated liver enzymes (Acute) Jaundice (Acute) Hypokalemia (Acute) Hypomagnesemia (Acute) Pedal edema (Acute) Volume overload Decompensated cirrhosis Liver cirrhosis Anasarca Thrombocytopenia Medical History Psoriasis Alcohol abuse Ascites due to alcoholic cirrhosis resolved per pt Hypertension History of COVID-19 02/2020, no test-called PCP w/report of symptoms-"textbook symptoms"; loss taste/smell, "slight" fever, chills, body aches, "felt out of it for a few weeks afterward">resolved. Depression hx GI bleed treated at [facility] 09/2019 Esophageal varices Surgical History Hx of cataract extraction rt. History of esophagogastroduodenoscopy (EGD) with banding of esophageal varices Family History Family/Other No problems noted. Other No family history of adverse response to anesthesia Denies family history of Liver disease Social History Smoking Status: Never smoker Second Hand Exposure: No; Do You Dip or Chew Tobacco: No; Hx Alcohol Use: Yes Alcohol type: beer Hx Substance Use: No Preferred Language: Bengali Communication Ability: Effective Parachute Mender Required: No Beliefs That Will Affect Care: None marital status: / Current Living Situation: Alone Current Living Situation Comment: lives with a room-mate with friend Feels Safe at Home: Yes Assistive Devices: Glasses Allergies Allergies Allergy/AdvReac Type Severity Reaction Status Date / Time No Known Allergies Allergy Verified 12/24/21 08:51 Home Meds Previous Rx's Medication Instructions Recorded folic acid 400 mcg tablet 400 mcg PO QAM 30 days #30 tabs 10/07/19 furosemide 40 mg tablet 40 mg PO QAM 30 days #30 tabs 10/07/19 spironolactone 100 mg tablet 100 mg PO QAM 30 days #30 tabs 10/07/19 thiamine HCl (vitamin B1) 100 mg 100 mg PO QAM 30 days #30 tabs 10/07/19 tablet (Vitamin B-1) Results & Data (ED) Vital Signs Vital Signs - 24 hr 03/20/24 14:21 03/20/24 16:07 03/20/24 16:07 Temperature 36.5 C Temperature Source Temporal Artery Scan Pulse Rate 102 H 96 H 95 H Pulse Rate [Apical] Respiratory Rate 16 14 Respiratory Effort / Characteristics Non-Labored Spontaneous Respiratory Depth Normal Blood Pressure 143/80 H Blood Pressure [Left Arm] Blood Pressure Mean 101 Blood Pressure Mean [Left Arm] Blood Pressure Position Sitting Blood Pressure Position [Left Arm] Pulse Oximetry 97 97 Oxygen Delivery Method Room Air Room Air Sepsis Recent Fever Within 48 Hours No Sepsis New/Unexplained Change in Mental Status N/A Sepsis Action Taken by Nursing No Action Required 03/20/24 16:58 Temperature Temperature Source Pulse Rate Pulse Rate [Apical] 93 H Respiratory Rate 15 Respiratory Effort / Characteristics Respiratory Depth Blood Pressure Blood Pressure [Left Arm] 137/73 Blood Pressure Mean Blood Pressure Mean [Left Arm] 94 Blood Pressure Position Blood Pressure Position [Left Arm] Lying Pulse Oximetry 96 Oxygen Delivery Method Sepsis Recent Fever Within 48 Hours Sepsis New/Unexplained Change in Mental Status Sepsis Action Taken by Long Term Medications Current Medication List: was personally reviewed by me Laboratory Data Attestation: I reviewed the patient's lab results. 03/20/24 14:27 03/20/24 14:27 Lab Results 03/20/24 Range/Units 14:27 WBC 9.15 (4.8-10.8) K/ul RBC 3.46 L (4.70-6.10) M/uL Hgb 12.1 L (14.0-18.0) g/dl Hct 34.1 L (42.0-52.0) % MCV 98.6 (80.0-100.0) fL MCH 35.0 H (25.0-34.0) pg MCHC 35.5 (32.0-36.0) g/dL RDW Std Deviation 53.1 H (36.4-46.3) fL RDW Coeff of Aleah 14.6 H (11.5-14.5) % Plt Count 70 L (130-400) K/uL MPV 10.0 (9.4-12.4) fL Immature Gran % (Auto) 0.8 % Neut % (Auto) 72.8 % Lymph % (Auto) 16.1 % [place] % (Auto) 9.3 % Eos % (Auto) 0.5 % Baso % (Auto) 0.5 % Neut # (Auto) 6.66 H (1.40-6.50) K/uL Lymph # (Auto) 1.47 (1.20-3.40) K/uL [place] # (Auto) 0.85 H (0.11-0.59) K/uL Eos # (Auto) 0.05 (0.00-0.50) K/uL Baso # (Auto) 0.05 (0.00-0.20) K/uL Immature Gran # (Auto) 0.07 (0.01-0.20) K/uL PT 16.6 H (9.0-12.0) Seconds INR 1.6 H (0.9-1.1) APTT 32 H (21-31) Seconds PTT Ratio 1.2 Sodium 127 L (136-145) mmol/L Potassium 3.0 L (3.5-5.1) mmol/L Chloride 95 L (98-107) mmol/L Carbon Dioxide 23 (21-32) mmol/L Anion Gap 9 (3-11) BUN 6 (6-23) mg/dl Creatinine 0.76 (0.6-1.4) mg/dl Est Cr Clr Drug Dosing 117.1 ml/min eGFR 100.37 BUN/Creatinine Ratio 7.9 L (10-20) Glucose 144 H (70-99(Fasting)) mg/dl Osmolality 274 L (280-300) mOsm/kg Calcium 8.4 L (8.6-10.3) mg/dl Magnesium 1.5 L (1.7-2.4) mg/dl Total Bilirubin 7.1 H (0.2-1.0) mg/dl AST 68 H (13-39) U/L ALT 33 (7-52) U/L Alkaline Phosphatase 123 H (34-104) U/L Troponin I High Sens 7.9 (0-20) pg/ml B-Natriuretic Peptide 45 (0-100) pg/ml Total Protein 6.4 (6.0-8.3) gm/dl Albumin 3.0 L (3.4-5.0) gm/dl Globulin 3.4 (2.5-4.0) gm/dl Albumin/Globulin Ratio 0.9 (0.9-2) TSH 3.096 (0.300-4.500) uIu/ml Administered Medications Furosemide (Furosemide 40 Mg/4 Ml Vial) 40 mg IV BIDR [facility] Stop: 04/19/24 19:28 Last Admin: 03/20/24 20:30 Dose: 40 mg Documented By: DOUGLAS Discontinued Medications Furosemide (Furosemide 40 Mg/4 Ml Vial) 40 mg IV ONE ONE Stop: 03/20/24 16:01 Last Admin: 03/20/24 16:59 Dose: 40 mg Documented By: DOUGLAS Potassium Chloride (K Petar / Wtr) 10 meq in 100 mls @ 100 mls/hr IV ONE ONE Stop: 03/20/24 16:59 Last Infusion: 03/20/24 19:04 Dose: Infused Documented By: Admin: 03/20/24 16:59 Dose: 100 mls/hr Documented By: DOUGLAS Magnesium Sulfate/Dextrose (Magnesium Sulfate / D5w) 1 gm in 100 mls @ 100 mls/hr IV NOW STA Stop: 03/20/24 17:00 Last Infusion: 03/20/24 18:57 Dose: Infused Documented By: Admin: 03/20/24 16:57 Dose: 100 mls/hr Documented By: DOUGLAS Ceftriaxone Sodium (Rocephin) 2,000 mg in 50 mls @ 100 mls/hr IV NOW STA Stop: 03/20/24 18:31 Last Infusion: 03/20/24 20:01 Dose: Infused Documented By: Admin: 03/20/24 19:09 Dose: 100 mls/hr Documented By: DOUGLAS Magnesium Oxide (Magnesium Oxide 400 Mg Tab) 400 mg PO NOW STA Stop: 03/20/24 16:02 Last Admin: 03/20/24 16:59 Dose: 400 mg Documented By: DOUGLAS Potassium Chloride (Potassium Chloride Crtab 20 Meq Tabcr) 20 meq PO NOW STA Stop: 03/20/24 16:01 Last Admin: 03/20/24 16:59 Dose: 20 meq Documented By: DOUGLAS Imaging Data Radiologist's Impression: Chest X-Ray 03/20/24 14:25 XR chest 1V not portable CLINICAL HISTORY: Chest pain, nonspecific COMPARISON STUDY: No previous studies for comparison. FINDINGS: Lung volumes are normal. There is no consolidation. Linear right basilar density represents atelectasis. There is no pneumothorax or pleural effusion. Cardiac size is normal. Opacity at the right cardiophrenic angle represents epicardial fat pad. There is no evidence for pulmonary edema. IMPRESSION: No acute cardiopulmonary findings. ACT 112: Negative or not required by law. Electronically signed by: Abdiaziz Luis M.D. 03/20/2024 3:42 PM Venous Doppler Study 03/20/24 14:57 BILATERAL LOWER EXTREMITY VENOUS DOPPLER HISTORY: swelling COMPARISON STUDY: None FINDINGS: No evidence of DVT seen at bilateral lower extremities. IMPRESSION: Negative for DVT. ACT 112: Negative or not required by law. Electronically signed by: Erick Dewitt M.D. 03/20/2024 3:56 PM Abdomen Ultrasound 03/20/24 16:57 INDICATION: Evaluate for abdominal ascites. TECHNIQUE: Sonographic transabdominal grayscale evaluation of the abdomen to assess for ascites. COMPARISON: CT from 10/04/2019. FINDINGS/IMPRESSION: Small volume ascites noted. Electronically signed by Jeison Pillai 03-20-2024 6:51 PM Discharge Plan Visit Data Chief Complaint: Swelling/Edema to Extremity Stated Complaint: DIAGANOSTIC PROCED. SWELLING ED Provider: Carmelo Dumont Discharge Problem: Pedal edema, Hypomagnesemia, Hypokalemia, Jaundice, Elevated liver enzymes, Thrombocytopenia, Acute UTI Patient Disposition: Admitted As Inpatient Condition: Fair Discharge Instructions Interventions: ED Discharge Assessment Last Done: 03/20/24 19:28
--- NOTE | 2024-03-20 15:44 | XRay Report ---
XR chest 1V not portable CLINICAL HISTORY: Chest pain, nonspecific COMPARISON STUDY: No previous studies for comparison. FINDINGS: Lung volumes are normal. There is no consolidation. Linear right basilar density represents atelectasis. There is no pneumothorax or pleural effusion. Cardiac size is normal. Opacity at the ri ght cardiophrenic angle represents epicardial fat pad. There is no evidence for pulmonary edema. IMPRESSION: No acute cardiopulmonary findings. ACT 112: Negative or not required by law. Electronically signed by: Abdiaziz Luis M.D. 03/20/2024 3:42 PM
[2024-03-20 15:53] LABS: INR 1.6 (0.9-1.1); Partial Thromboplastin Ratio 1.2; Partial Thromboplastin Time 32 Seconds (21-31); Prothrombin Time 16.6 Seconds (9.0-12.0)
--- NOTE | 2024-03-20 15:58 | Ultrasound Report ---
BILATERAL LOWER EXTREMITY VENOUS DOPPLER HISTORY: swelling COMPARISON STUDY: None FINDINGS: No evidence of DVT seen at bilateral lower extremities. IMPRESSION: Negative for DVT. ACT 112: Negative or not required by law. Electronically signed by: Erick Dewitt M.D. 03/20/2024 3:56 PM
[2024-03-20 16:00] LABS: Magnesium 1.5 mg/dl (1.7-2.4)
[2024-03-20 16:15] LABS: Thyroid Stimulating Hormone 3.096 uIu/ml (0.300-4.500)
[2024-03-20] MEDS: MAGNESIUM SULFATE / D5W 1 GM/100 ML BAG IV STA (16:57)
[2024-03-20] MEDS: POTASSIUM CHLORIDE CRTAB 20 MEQ TABCR PO STA (16:59)
[2024-03-20] MEDS: MAGNESIUM OXIDE 400 MG TAB PO STA (16:59)
[2024-03-20] MEDS: FUROSEMIDE 40 MG/4 ML VIAL IV ONE (16:59)
[2024-03-20] MEDS: POTASSIUM CHLORIDE / WTR 10 MEQ/100 ML PLCT IV ONE (16:59)
--- NOTE | 2024-03-20 17:00 | History & Physical Report ---
Date of Service March 20, 2024 Assessment & Plan (1) Decompensated cirrhosis: (2) Thrombocytopenia: (3) Volume overload: Plan Mr. Nath is a 63 year old gentleman with past medical history of cirrhosis, HTN, and prior GIB 2/2 EV admitted for decompensated cirrhosis. #Volume overload #Cirrhosis 2/2 prior EtOH,decompensated #Transaminitis - History of decompensation: 2019 - MELD-Na: 26 on admission - Last EGD 2019: mild portal hypertensive gastropathy, no varices noted at that time "esophagus normal", prior 09/2019 with EV s/p banding - PSE: Denies h/o HE, no evidence of HE on exam, not on lactulose - Ascites: US ascites ordered - EV: No evidence of GIB presently, close monitoring - Not on PPI, will add daily given hx of gastropathy - HRS: Cr at baseline - Daily CMP + INR to calculate MELD; low Na diet - GI consult - Lasix 40mg IV BID - Lytes q 12 hours #sinus tachycardia with fusion complexes #Prolonged QTc, 523 on admission monitor on tele replace lytes aggressively EKG in am no reports of SVT, palpitations , chest pain, SOB ECHO #Chronic Thrombocytopenia iso cirrhosis #Coagulopathy #Chronic anemia no active sign of bleed, follow MELD CTM SCDs #Hyponatremia low osmo, likely iso volume overload BMP q 12 FR 2L,lasix as above hold spironolactone for now contingent on trend #hypomagnesia #Hypocalcemia start slow mag vit d qam DVT scds, ambulate admit med tele Full Code Admission and Anticipated Discharge Date Admission Date: Time spent evaluating patient, direct bedside care, chart review, placing orders, interpretation of diagnostic studies, discussion with consultants, patient, and family members, as well as other required patient management activities is 75 minutes. History of Present Illness Chief Complaint: BLE Swelling Primary Care Provider: Ed Jovel MD Mr. Nath is a 63 year old gentleman with past medical history of cirrhosis, HTN, and prior GIB 2/2 EV in 2017 presented to [facility] ED due to worsening leg swelling and scrotal swelling. Patient presented to PCP c/o increased leg swelling and abdominal swelling. Following OP for diuretic adjustments on 02/14/24 who increased Lasix from 40mg to 60mg but did not start this until around 03/03/24. Weight notably documented as 217lb 02/14/2024 to 226 as of today OP visit. Patient denies ALCARAZ, SOB, chest pain, palpitations. He denies any big diet changes--but does note he doesn't abide by any particular dietary restrictions. He does In the ED, vitals were notable for BP of 120-130a, HR of 90-100s and O2 sat of 96 on RA . Imaging revealed EKG QTc 523, fusion complex noted ED interventions: IV lasix BID Patient to be admitted to med/tele for further evaluation and management of decompensated cirrhosis Allergies Allergy/AdvReac Type Severity Reaction Status Date / Time No Known Allergies Allergy Verified 12/24/21 08:51 Home Medications Medication Instructions Recorded Confirmed Type folic acid 400 mcg tablet 400 mcg PO QAM 30 days #30 tabs 10/07/19 03/20/24 Rx furosemide 40 mg tablet 40 mg PO QAM 30 days #30 tabs 10/07/19 03/20/24 Rx spironolactone 100 mg tablet 100 mg PO QAM 30 days #30 tabs 10/07/19 03/20/24 Rx thiamine HCl (vitamin B1) 100 mg 100 mg PO QAM 30 days #30 tabs 10/07/19 03/20/24 Rx tablet (Vitamin B-1) Past Med/Surg History Problem List (Updated 03/20/24 @ 18:35 by Rochelle Lara MD) Volume overload Decompensated cirrhosis Liver cirrhosis Anasarca Thrombocytopenia Medical History (Updated 03/20/24 @ 18:35 by Rochelle Lara MD) Psoriasis Alcohol abuse Ascites due to alcoholic cirrhosis resolved per pt Hypertension History of COVID-19 02/2020, no test-called PCP w/report of symptoms-"textbook symptoms"; loss taste/smell, "slight" fever, chills, body aches, "felt out of it for a few weeks afterward">resolved. Depression hx GI bleed treated at [facility] 09/2019 Esophageal varices Surgical History Hx of cataract extraction rt. History of esophagogastroduodenoscopy (EGD) with banding of esophageal varices Family History Family/Other No problems noted. Other No family history of adverse response to anesthesia Denies family history of Liver disease Social History Smoking Status: Never smoker Second Hand Exposure: No; Do You Dip or Chew Tobacco: No; Hx Alcohol Use: Yes Alcohol type: beer Hx Substance Use: No Preferred Language: Cuban Communication Ability: Effective Lute Packer Or Applier Required: No Beliefs That Will Affect Care: None marital status: / Current Living Situation: Alone Current Living Situation Comment: lives with a room-mate with friend Feels Safe at Home: Yes Assistive Devices: Glasses Review of Systems Review of Systems: Constitutional: (-) fever/chills, (-) recent loss of weight, (-) appetite changes, (-) night sweats. Head: (-) headache, (-) dizziness. Eye: (-) blurring of vision, (-) double vision, (-) redness. Ear: (-) hearing loss, (-) discharge, (-) vertigo Nose: (-) discharge, (-) bleeding, (-) congestion, (-) post nasal drip. Throat: (-) sore throat, (-) hoarseness of voice, (-) odynophagia. Cardiovascular: (-) chest pain, (-) palpitations, (-) syncope, (-) orthopnea, ( ++) PND, (++) leg swelling. Respiratory: (-) shortness of breath, (-) cough, (-) wheezing, (-) hemoptysis. Neuro: (-) weakness in extremities, (-) numbness, (-) tingling, (-) tremor. Gastrointestinal: (-) belly pain, (++) belly distension, (-) nausea, (-) vomiting, (-) diarrhea, (-) constipation, Genitourinary: (-) hematuria, (-) dysuria, (-) polyuria, (-) hesitancy, (-) frequency, (-) urinary incontinence. Musculoskeletal: (-) myalgia, (-) arthralgia. Skin: (-) rashes. Endocrine: (-) heat/cold intolerance. Psychiatry: (-) depression, (-) hallucination. Physical Exam Physical Exam: GENERAL APPEARANCE: AxOx4, chronically ill appearing gentleman HEENT: NC, AT. MMM. EOMI, scleral icterus, oropharynx clear. NECK: Supple without lymphadenopathy. No stiffness or restricted ROM. HEART: sinus tachycardia LUNGS: CTAB, moving air well. No crackles or wheezes are heard. ABDOMEN: distention, no clear fluid shift, umbilical hernia present BACK: No CVAT, no obvious deformity. EXTREMITIES: compression socks in place still with palpable 3+ edema up to posterior thigh extending to scrotum. NEUROLOGICAL: Grossly nonfocal. Alert and oriented, moving all 4 extremities. Results & Data Results & Data Vital Signs (Past 12 Hours) Vital Signs Temp Pulse Resp BP Pulse Ox O2 Del Method 03/20/24 16:07 95 H 03/20/24 16:07 96 H 14 97 Room Air 03/20/24 14:21 36.5 C 102 H 16 143/80 H 97 Room Air Laboratory Results Short CBC 03/20/24 Range/Units 14:27 WBC 9.15 (4.8-10.8) K/ul Hgb 12.1 L (14.0-18.0) g/dl Hct 34.1 L (42.0-52.0) % Plt Count 70 L (130-400) K/uL BMP 03/20/24 14:27 Sodium 127 L Potassium 3.0 L Chloride 95 L Carbon Dioxide 23 BUN 6 Creatinine 0.76 Glucose 144 H Calcium 8.4 L Liver Function 03/20/24 Range/Units 14:27 Total Bilirubin 7.1 H (0.2-1.0) mg/dl AST 68 H (13-39) U/L ALT 33 (7-52) U/L Alkaline Phosphatase 123 H (34-104) U/L Albumin 3.0 L (3.4-5.0) gm/dl Medications Administered Home Medications Medication Instructions Recorded Confirmed Last Taken folic acid 400 mcg tablet 400 mcg PO QAM 30 days #30 tabs 10/07/19 12/24/21 12/23/21 furosemide 40 mg tablet 40 mg PO QAM 30 days #30 tabs 10/07/19 12/24/21 12/23/21 spironolactone 100 mg tablet 100 mg PO QAM 30 days #30 tabs 10/07/19 12/24/21 12/23/21 thiamine HCl (vitamin B1) 100 mg 100 mg PO QAM 30 days #30 tabs 10/07/19 12/24/21 12/23/21 tablet (Vitamin B-1) cetirizine 10 mg tablet (Zyrtec) 10 mg PO DAILY PRN Congestion 10/21/21 12/24/21 12/23/21
[2024-03-20 17:53] LABS: Appearance Urine Clear (Clear); Bacteria Urine Automated 3+ (None Seen); Bilirubin Urine Negative (Negative); Blood Urine Negative (Negative); Cast Urine Automated 0-2 /lpf (0-2); Color Urine Yellow; Epithelial Cell Urine Auto 0-2 /hpf (0-2); Glucose Urine UA Negative (Negative); Ketones Urine Negative (Negative); Leukocyte Esterase Urine 2+ (Negative); Nitrite Urine Positive (Negative); Protein Urine Negative (Negative); RBC Urine Automated 0-2 /hpf (0-2); Specific Gravity Urine 1.005 (1.000-1.030); Urobilinogen Urine Negative (Negative); WBC Urine Automated 21-50 /hpf (0-5); pH Urine 6.5 (4.5-7.5)
--- NOTE | 2024-03-20 18:52 | Ultrasound Report ---
INDICATION: Evaluate for abdominal ascites. TECHNIQUE: Sonographic transabdominal grayscale evaluation of the abdomen to assess for ascites. COMPARISON: CT from 10/04/2019. FINDINGS/IMPRESSION: Small volume ascites noted. Electronically signed by Jeison Pillai 03-20-2024 6:51 PM
[2024-03-20] MEDS: cefTRIAXone SODIUM 2,000 MG/50 ML BAG IV STA (19:09)
[2024-03-20] MEDS ORDERED: POLYETHYLENE (MIRALAX) 17 GM PACK PO PRN (19:29)
[2024-03-20] MEDS ORDERED: ACETAMINOPHEN 500 MG TAB PO PRN (19:29)
[2024-03-20] MEDS: FUROSEMIDE 40 MG/4 ML VIAL IV SCH (20:30)
--- OUTSIDE RECORDS SUMMARY | 2024-03-20 21:03 | External Medical Summary | Summary of Care ---
Author Name Unknown Organization [facility] Address [address] [place] [address] Phone [phone] Care Team Providers Care Supervisor Money Room Name Role Phone Becka GUZMAN MD, John E Primary Care Provider [phone] Reason for Visit * Reason Comments Medication Refill Encounter Details Date Type Department Care Team (Late st Contact Info) Description 12/13/2023 Refill Family Practice [facility] [address] [facility] [place] [address] Ed Jovel III, MD [address] [place] [address] Allergies Active Allergy Reactions Criticality Noted Date Comments Pollen Conjunctivitis 08/14/2022 documented as of this encounter (statuses as of 12/16/2023) Medications Medication Sig Dispensed Refills Start Date End Date Status Centrum Adults Oral Tablet Take 1 Tab by mouth daily. 05/07/2020 Active Folic Acid 400 MCG Oral Tablet (Folate) Take 1 Tab by mouth daily. 100 Tab 3 05/07/2020 Active Thiamine HCl 250 MG Oral Tablet Take 1 Tab by mouth daily. 05/07/2020 Active Fluocinonide 0.05 % External CreamIndications :Psoriasis Apply topically to affected area 2 times a day. Apply to elbow rash 30 g 2 08/08/2020 Active Cetirizine HCl 10 MG Oral Tablet (ZyrTEC) 1 Tablet. 10/21/2021 Active Furosemide 40 MG Oral Tablet (Lasix) Take 1 Tablet by mouth in the morning. 180 Tablet 06/14/2023 Active Spironolactone 100 MG Oral Tablet (Aldactone) Take 1 Tablet by mouth in the morning. 90 Tablet 09/13/2023 12/13/2023 Discontinued (Refill) documented as of this encounter (statuses as of 12/16/2023) Active Problems Problem Noted Date Diagnosed Date Protein-calorie malnutrition 07/24/2020 Other psoriasis 10/20/2002 OBESITY, UNSPECIFIED 02/14/2002 BENIGN HYPERTENSION 02/14/2002 documented as of this encounter (statuses as of 12/16/2023) Immunizations Name Administration Dates Next Due Covid-19 Ad26, Single Dose (Sherif/J&J) 021 Seasonal Influenza, PF, 6 M & above, IM , (FluLaval or Fluzone) 01/09/2021 TDAP (age 10 and older)(Boostrix) 10/26/2011 documented as of this encounter Social History Tobacco Use Types Packs/Day Years Used Date Smoking Tobacco: Never Smokeless Tobacco: Never Alcohol Use Standard Drinks/Week Comments No 0 (1 standard drink = 0.6 oz pur e alcohol) Hunger Vital Sign Answer Date Recorded Within the past 12 months, y ou worried that your food would run out before you got the money to buy more. Never true 05/06/19 21 Within the past 12 months, t he food you bought just didn't last and you didn't have money to get more. Never true 05/06/2020 Utilities Answer Date Recorded Do you have trouble paying y our heating, water, or electric bill? (Adult - for ages 18 years and over) Not on file 08/31/2023 Is your family able to pay t he heat, water, or electric bill? (Household - for ages 0-17 years) Not on file 08/31/2023 Does your family have access to good internet? (Household - for ages 0-17 years) Not on file 08/31/2023 Social Connections Answer Date Recorded How often do you feel lonely or isolated from those around you? (Adult - for ages 18 years and over) Not on file 08/31/2023 Sex and Gender Information Value Date Recorded Sex Assigned at Not on file Gender Identity Not on file Sexual Orientation Not on file Job Start Date Occupation Industry Not on file Not on file Not on file documented as of this encounter Miscellaneous Notes * Addendum Note - Radha Ray, audiology technician - 12/16/2023 8:40 AM EDTAddended by: RADHA RAY on: 12/16/2023 08:40 AM Modules accepted: Orders * Telephone Encounter - Sabina Sorto PHARM Tech - 12/15/2023 1:00 PM EDTPending Prescriptions: Disp Refills Furosemide 40 MG Oral Tablet (Lasix) 180 Ta*0 Sig: Take 1 Tablet by mouth in the morning. * Telephone Encounter - Eugenie Parsons PHARM Tech - 12/15/2023 11:55 AM EDT Patient has an appointment scheduled for 01/18/2024. Thank you, Eugenie Parsons Boilermaker Pipe [employer]itter [facility] 12/15/2023, 11:58 AM * Telephone Encounter - Thelma Black RPh - 12/14/2023 2:14 PM EDTPending Prescriptions: Disp Refills Furosemide 40 MG Oral Tablet (Lasix) 180 Ta*0 Sig: Take 1 Tablet by mouth in the morning. * Telephone Encounter - Thelma Black RPh - 12/14/2023 2:13 PM EDT Unable to authorize medication refills for pended medication(s) at this time. Part of the protocol criteria used for refill authorization was not satisfied. Per refill protocol patient should have BMP on file within past year. Reviewed AMP report, Care Gaps/Health Maintenance, medications list, and for any routine labs typically ordered for this patient.Lab orders placed. Please contact patient to schedule office visit with PRIMARY CARE and advise of labs ordered for blood draw.. Fasting is not required. Advise to obtain labs before requesting the next refill. Last Visit: 01/09/2021 (in office), 10/29/2021 (telemedicine) Next Visit: Visit date not found After contacting patient, please forward request to Ed Jovel III, MD. Thanks, Thelma Black PharmD Clinical Pharmacist [facility] [phone] 12/14/2023, 2:13 PM * Telephone Encounter - Jessie Wheeler [facility] - 12/14/2023 1:24 PM EDT Did you pend patient's preferred pharmacy and medication before forwarding?yes Pharmacy: [facility] Pending Prescriptions: Disp Refills Furosemide 40 MG Oral Tablet (Lasix) 180 Ta*0 Sig: Take 1 Tablet by mouth in the morning. Last Visit: 01/09/2021 (in office), 10/29/2021 (telemedicine) Next Visit: Visit date not found If no future appointments scheduled, and last appointment is greater than a year ago, please schedule patient for a follow-up appointment Last date the medication was ordered: 06/14/23 Is this request for a controlled substance?No Urine Drug Screen:No results found for this or any previous visit. Patient Phone Numbers Labs: Lab Results Component Value Date/Time CREAT 0.8 2022 10:23 AM CREAT 0.62 07/26/2020 12:00 AM CREAT 0.7 07/10/2009 07:23 AM POTASSIUM 3.1 (L) 2022 10:23 AM POTASSIUM 4.2 07/26/2020 12:00 AM POTASSIUM 4.2 07/10/2009 07:23 AM TSH 2.11 02/14/2002 03:29 PM LDL 83 06/06/2020 11:59 AM LDL 157 (H) 07/07/2010 11:12 AM ALT 31 2022 10:23 AM documented in this encounter Plan of Treatment Upcoming Encounters Date Type Department Care Team (Late st Contact Info) Description 01/18/2024 8:40 AM EST Office Visit Family Practice [facility] [address] [facility] [place] [place] [address] Ed Jovel III, MD [address] [facility] COUNTS INCLUDE 234 BEDS AT [facility] [place] [address] Health Maintenance Due Date Last Done Comments Depression Screening 1971 HIV Screening 10/14/1974 Cologuard 10/14/2004 Colonoscopy 10/14/2004 Colorectal Cancer Screening 10/14/2004 Fecal Occult Blood Test 10/14/2004 Sigmoidoscopy 10/14/2004 Zoster Vaccines (1 of 2) 10/14/2009 DTap/Tdap Vaccines (2 - Td or Tdap) 10/25/2021 10/26/2011 GFR 10/16/2023 2022, 08/15, 01/09/2021, Additional history exists COVID-19 Vaccine (2 - season) 2023 06/19/2020 Influenza Vaccine (FLU shot) (#1) 2023 01/09/2021 Lipid Panel 06/06/2025 06/06/2020, 04/2 07/2010, 07/10/2009, Additional history exists Albumin/Creatinine Ratio 09/11/2025 09/11/2022 Diabetes Screening 2025 2022, 0 09/11/2022, 01/09/2021, Additional history exists HPV (Gardasil) Vaccine Aged Out No lo nger eligible based on patient's age to complete this topic Hepatitis B Vaccine Aged Out No longe r eligible based on patient's age to complete this topic MENINGOCOCCAL (MENACTRA/MENVEO) Aged Out No longer eligible based on patient's age to complete this topic Pneumococcal Vaccine: Pediatrics (0 to 5 Years) and At-Risk Patients (6 to 64 Years) Aged Out No longer eligible based on patient's age to complete this topic documented as of this encounter Medical Devices Not on filedocumented as of this encounter Care Teams Supervisor Money Room Relationship Specialty Start Date End Date Ed Jovel III, MD [address] [place] [address] PCP - General Family Medicine 11/19/11 documented as of this encounter
--- OUTSIDE RECORDS SUMMARY | 2024-03-20 21:03 | External Medical Summary | Summary of Care ---
Author Name Unknown Organization [facility] Address [address] [place] [address] Phone [phone] Care Team Providers Care Cancer Genetics Assistant Name Role Phone Becka GUZMAN MD, Ed Horton Primary Care Provider [phone] Reason for Visit * Reason Comments Outpatient Testing Encounter Details Date Type Department Care Team (Late st Contact Info) Description 02/08/2024 9:40 AM EST [facility] [address] [place] [phone] [facility] [address] [facility] [place] [address] Encounter for long-term (current) use of medications Allergies Active Allergy Reactions Criticality Noted Date Comments Pollen Conjunctivitis 08/14/2022 documented as of this encounter (statuses as of 02/08/2024) Medications Centrum Adults Oral Tablet Take 1 Tab by mouth daily. 1 Active Folic Acid 400 MCG Oral Tablet (Folate) Take 1 Tab by mouth daily. 100 Tab 3 1 Active Thiamine HCl 250 MG Oral Tablet Take 1 Tab by mouth daily. 1 Active Fluocinonide 0.05 % External CreamIndication s:Psoriasis Apply topically to affected area 2 times a day. Apply to elbow rash 30 g 2 1 Active Cetirizine HCl 10 MG Oral Tablet (ZyrTEC) 1 Tablet. 2 Active Spironolactone 100 MG Oral Tablet (Aldactone) Take 1 Tablet by mouth in the morning. 90 Tablet 12/16/2023 11:23 AM EDT 4 Active Furosemide 40 MG Oral Tablet (Lasix) Take 1 Tablet by mouth in the morning. 180 Tablet 12/17/2023 11:11 AM EDT 4 Active documented as of this encounter (statuses as of 02/08/2024) Active Problems Problem Noted Date Diagnosed Date Protein-calorie malnutrition 07/24/2020 Other psoriasis 10/20/2002 OBESITY, UNSPECIFIED 02/14/2002 BENIGN HYPERTENSION 02/14/2002 documented as of this encounter (statuses as of 02/08/2024) Immunizations Name Administration Dates Next Due Covid-19 [...] the money to buy more. Never true 01/31/20 24 Within the past 12 months, t he food you bought just didn't last and you didn't have money to get more. Never true 01/31/2024 Childcare Answer Date Recorded Do you feel overwhelmed with taking care of a child, family member or friend? No 01/31/2024 Does your family need help f inding childcare? (Household - for ages 0-17 years) Not on file 01/31/2024 Clothing Answer Date Recorded Have you been unable to get clothing when it was really needed? No 01/31/2024 Is your family able to get c lothes or diapers when needed? (Household - for ages 0-17 years) Not on file 01/31/2024 Personal Safety Answer Date Recorded Do you feel unsafe or have concerns for your saf ety? No 01/31/2024 Do you have concerns for you r family's safety? (Household - for ages 0-17 years) Not on file 01/31/2024 Utilities Answer Date Recorded Do you have trouble paying y our heating, water, or electric bill? No 01/31/2024 Is your family able to pay t he heat, water, or electric bill? (Household - for ages 0-17 years) Not on file 01/31/2024 Does your family have access to good internet? (Household - for ages 0-17 years) Not on file 01/31/2024 Employment Status Answer Date Recorded Are you unemployed or without regular income? No 01/31/2024 Does the household have a re lar source of income? (Household - for ages 0-17 years) Not on file 01/31/2024 Social Connections Answer Date Recorded How often do you feel lonely or isolated from th ose around you? Rarely 01/31/2024 Financial Resource Strain Answer Date R ecorded Do you have any trouble payi ng for your medications, or do you think you might in the future? No 01/31/2024 Does your family have troubl e paying for medicine? (Household - for ages 0-17 years) Not on file 01/31/2024 Transportation Needs Answer Date Record ed Do you have trouble getting a ride to medical visits or work? (Adult - for ages 18 years and over) Not on file 01/31/2024 Does your family have a hard time getting a ride to doctors visits? (Household - for ages 0-17 years) Not on file 01/31/2024 Has lack of transportation k ept you from medical appointments, meetings, work, or from getting things needed for daily living? Check all that apply. No 01/31/2024 Do you (or your family) have trouble finding or paying for a ride (transportation)? (Household - for ages 0-17 years) Not on file 01/31/2024 Housing Stability Answer Date Recorded Do you currently live in a s helter or have no steady place to sleep at night? No 01/31/2024 Do you think you are at risk of becoming homeless? (Adult - for ages 18 years and over) Not on file 01/31/2024 Does your family worry about paying for your home or becoming homeless? (Household - for ages 0-17 years) Not on file 1 04/01/2023 Are you homeless or worried that you might be in the future? No 01/31/2024 Are you (or your family) shan eless or worried that you might be in the future? (Household - for ages 0-17 years) Not on file Food Insecurity Answer Date Recorded Do you need food for this week? No 01/31/2024 Are you able to get enough f ood for your family? (Household - for ages 0-17 years) Not on file 01/31/2024 Does your family need food t his week? (Household - for ages 0-17 years) Not on file 01/31/2024 Do you always have enough fo od for your family? (Household - for ages 0-17 years) Not on file 01/31/2024 Sex and Gender Information Value Date Recorded Sex Assigned at Male 01/31/2024 9:42 AM EST Legal Sex Male 7:10 AM EST Gender Identity Male 01/31/2024 9:42 AM EST Sexual Orientation Straight 01/31/2024 9: 42 AM EST documented as of this encounter Plan of Treatment Upcoming Encounters Date Type Department Care Team (Late st Contact Info) Description 02/14/2024 9:00 AM EST Office Visit [facility] [address] [facility] [place] [address] Ed Jovel III, MD [address] [facility] [place] [address] Pending Results Name Type Priority Associated Diagnoses Date /Time BASIC METABOLIC PANEL Lab Routine Encounter for long-term (current) use of medications 02/08/2024 9:35 AM EST Health Maintenance Due Date Last Done Comments Depression Screening 1971 HIV Screening 10/14/1974 Cologuard 10/14/2004 Colonoscopy 10/14/2004 Colorectal Cancer Screening 10/14/2004 Fecal Occult Blood Test 10/14/2004 Sigmoidoscopy 10/14/2004 Zoster Vaccines (1 of 2) 10/14/2009 DTap/Tdap Vaccines (2 - Td or Tdap) 10/25/2021 10/26/2011 GFR 10/16/2023 2022, 08/15, 01/09/2021, Additional history exists COVID-19 Vaccine ( - 2024-25 season) 2023 06/19/2020 Influenza Vaccine (FLU shot) (#1) 2023 01/09/2021 Lipid Panel 06/06/2025 06/06/2020, 06/14, 07/10/2009, Additional history exists Albumin/Creatinine Ratio 09/11/2025 [...] Not on filedocumented as of this encounter Visit Diagnoses Diagnosis Encounter for long-term (current) use of medications Encounter for long-term (current) use of other medications documented in this encounter Care Teams Cancer Genetics Assistant Relationship Specialty Start Date End Date Ed Jovel III, MD [address] [place] [address] PCP - General Family Medicine 11/19/11 documented as of this encounter
--- OUTSIDE RECORDS SUMMARY | 2024-03-20 21:03 | External Medical Summary | Summary of Care ---
Author Name Unknown Organization [facility] Address [address] [place] [address] Phone [phone] Care Team Providers Care Plastics Spreading Machine Operator Name Role Phone Becka GUZMAN MD, John E Primary Care Provider [phone] Reason for Visit * Reason Comments Medication Refill Encounter Details Date Type Department Care Team (Late st Contact Info) Description 12/13/2023 Refill Family Practice [facility] 200 [facility] [place] [address] Ed Jovel III, MD [address] [place] [address] Allergies Active Allergy Reactions Criticality Noted Date [...] Notes * Addendum Note - Radha Ray, concrete finishing machine operator - 12/16/2023 8:40 AM EDTAddended by: RADHA [...] scheduled for 01/18/2024. Thank you, Eugenie Parsons Park Keeper [facility] 12/15/2023, 11:58 AM * Telephone [...] Clinical Pharmacist [facility] ([facility]) [phone] 12/14/2023, 2:13 PM * Telephone Encounter - Jessie Wheeler [facility] - 12/14/2023 1:24 PM EDT Did you pend patient's preferred pharmacy and medication before forwarding?yes Pharmacy: [facility] Pending Prescriptions: Disp Refills [...] Visit Family Practice [place] Nicholas [address] [facility] [place] [address] Ed Jovel III, MD 200 [facility] [place] [address] Health Maintenance Due Date Last Done Comments [...] filedocumented as of this encounter Care Teams Plastics Spreading Machine Operator Relationship Specialty Start Date End Date Ed Jovel III, MD [address] [place] [address] PCP - General Family Medicine 11/19/11 documented as of this encounter
--- OUTSIDE RECORDS SUMMARY | 2024-03-20 21:03 | External Medical Summary | Summary of Care ---
Author Name Unknown Organization [facility] Address [address] [place] [address] Phone [phone] Care Team Providers Care Research Animal Facility Supervisor Name Role Phone Becka GUZMAN MD, John E Primary Care Provider [phone] Reason for Visit * Reason Onset Date Comments Medication Refill Status Check 12/13/2023 Encounter Details Date Type Department Care Team (Late st Contact Info) Description 12/13/2023 Refill Family Practice [facility] 200 [facility] [place] [address] Dylon Sparks, 200 [facility] [address] Allergies Active Allergy Reactions Criticality Noted Date Comments Pollen Conjunctivitis 08/14/2022 documented as of this encounter (statuses as of 12/15/2023) Medications Medication Sig Dispensed Refills Start Date [...] 1 Tablet by mouth in the morning. 30 Tablet 12/15/2023 Active Spironolactone 100 MG Oral Tablet (Aldactone) Take 1 Tablet by mouth in the morning. 90 Tablet 09/13/2023 12/13/2023 Discontinued (Refill) documented as of this encounter (statuses as of 12/15/2023) Active Problems Problem Noted Date Diagnosed Date Protein-calorie malnutrition 07/24/2020 Other psoriasis 10/20/2002 OBESITY, UNSPECIFIED 02/14/2002 BENIGN HYPERTENSION 02/14/2002 documented as of this encounter (statuses as of 12/15/2023) Immunizations Name Administration Dates Next Due Covid-19 [...] encounter Miscellaneous Notes * Addendum Note - Kiana Parsons PHARM Tech - 12/15/2023 11:55 AM EDTAddended by: KIANA PARSONS on: 12/15/2023 11:55 AM Modules accepted: Orders * Telephone Encounter - Kiana Parsons PHARM Tech - 12/15/2023 11:55 AM EDT Patient is requesting a 90-day supply, pre-edited RXs as such. Please review and approve if appropriate. Pending Prescriptions: Disp Refills Spironolactone 100 MG Oral Tablet (Aldact*90 Tab*0 Sig: Take 1 Tablet by mouth in the morning. Signed Prescriptions: Disp Refills Spironolactone 100 MG Oral Tablet (Aldacto*30 Tab*0 Sig: Take 1 Tablet by mouth in the morning. Authorizing Provider: CLARA EASON III Last Visit: 01/09/2021 (in office), 10/29/2021 (telemedicine) Visit date not found If no future appointments scheduled, and last appointment is greater than a year ago, please schedule patient for an appointment Last date the medication was ordered: 12/15/2023 Patient Phone Numbers Labs: Lab Results Component Value Date/Time CREAT 0.8 2022 10:23 AM CREAT 0.62 07/26/2020 12:00 AM CREAT 0.7 07/10/2009 07:23 AM POTASSIUM 3.1 (L) 2022 10:23 AM POTASSIUM 4.2 07/26/2020 12:00 AM POTASSIUM 4.2 07/10/2009 07:23 AM TSH 2.11 02/14/2002 03:29 PM LDL 83 06/06/2020 11:59 AM LDL 157 (H) 07/07/2010 11:12 AM ALT 31 2022 10:23 AM * Telephone Encounter - Ирина Allen instrumentation engineering technician - 12/15/2023 10:38 AM EDT Mail order aware aware pt needs appt. fpr further refills. Thank you, Ирина Allen [facility] Shipyard Helper II [facility] Clinical Pharmacy Services ([facility]) 12/15/2023, 10:38 AM * Telephone Encounter - Clara Eason III, MD - 12/15/2023 7:40 AM EDTSigned Prescriptions: Disp Refills Spironolactone 100 MG Oral Tablet (Aldacto*30 Tab*0 Sig: Take 1 Tablet by mouth in the morning. Authorizing Provider: CLARA EASON III * Telephone Encounter - Clara Eason III, MD - 12/15/2023 7:39 AM EDT appt * Telephone Encounter - Kiya Quick RPh - 12/14/2023 2:49 PM EDT Pending Prescriptions: Disp Refills Spironolactone 100 MG Oral Tablet (Aldacto*90 Tab*0 Sig: Take 1 Tablet by mouth in the morning. * Telephone Encounter - Jessie Wheeler CPhT - 12/14/2023 1:26 PM EDT Did you pend patient's preferred pharmacy and medication before forwarding?yes Pharmacy: [facility] Pending Prescriptions: Disp Refills Spironolactone 100 MG Oral Tablet (Aldact*90 Tab*0 Sig: Take 1 Tablet by mouth in the morning. Last Visit: 01/09/2021 (in office), 10/29/2021 (telemedicine) Next Visit: Visit date not found If no future appointments scheduled, and last appointment is greater than a year ago, please schedule patient for a follow-up appointment Last date the medication was ordered: 09/13/23 Is this request for a controlled substance?No Urine Drug Screen:No results found for this or any previous visit. Patient Phone Numbers WedWu [phone] Labs: Lab Results Component Value Date/Time CREAT [...] documented in this encounter Plan of Treatment Health Maintenance Due Date Last Done Comments Depression Screening 1971 HIV Screening 10/14/1974 Cologuard 10/14/2004 Colonoscopy 10/14/2004 Colorectal Cancer Screening 10/14/2004 Fecal Occult Blood Test 10/14/2004 Sigmoidoscopy 10/14/2004 Zoster Vaccines (1 of 2) 10/14/2009 DTap/Tdap Vaccines (2 - Td or Tdap) 10/25/2021 10/26/2011 GFR 10/16/2023 2022, 08/15, 01/09/2021, Additional history exists COVID-19 Vaccine ( season) 2023 06/19/2020 Influenza Vaccine (FLU shot) [...] filedocumented as of this encounter Care Teams Research Animal Facility Supervisor Relationship Specialty Start Date End Date Clara Eason III, MD 200 [facility] [place] [address] PCP - General Family Medicine 11/19/11 documented as of this encounter
--- OUTSIDE RECORDS SUMMARY | 2024-03-20 21:03 | External Medical Summary | Summary of Care ---
Author Name Unknown Organization [facility] Address [address] [place] [address] Phone [phone] Care Team Providers Care Checker Product Design Name Role Phone Becka GUZMAN MD, John E Primary Care Provider [phone] Reason for Visit * Reason Onset Date Comments Follow Up Med check Medication Administration 02/14/2024 Flu an d/or Pneumo Inj Encounter Details Date Type Department Care Team (Late st Contact Info) Description 02/14/2024 9:00 AM EST Office Visit Family Practice [facility] [place] 200 [place] [address] Ed Jovel III, MD 200 [place] [address] Need for prophylactic vaccination and inoculation against influenza*; Need for megfbukzdi-guxfpuy-ij rtussis (Tdap) vaccine; Esophageal varices without bleeding, unspecified esophageal varices type (HCC); HTN, goal below 140/90; Edema, unspecified type Allergies Active Allergy Reactions Criticality Noted Date Comments Pollen Conjunctivitis 08/14/2022 documented as of this encounter (statuses as of 02/14/2024) Medications Centrum Adults Oral Tablet Take 1 [...] Oral Tablet (ZyrTEC) 1 Tablet. 2 Active Furosemide 40 MG Oral Tablet (Lasix) Take 1.5 Tablets by mouth in the morning. 135 Tablet 4 Active Spironolactone 100 MG Oral Tablet (Aldactone) Take 1 Tablet by mouth in the morning. 90 Tablet 3 4 Active Spironolactone 100 MG Oral Tablet (Aldactone) Take 1 Tablet by mouth in the morning. 90 Tablet 12/16/2023 11:23 AM EDT 4 02/14/20 24 Discontinu ed(Refill) Furosemide 40 MG Oral Tablet (Lasix) Take 1 Tablet by mouth in the morning. 180 Tablet 12/17/2023 11:11 AM EDT 4 02/14/20 24 Discontinu ed(Refill) documented as of this encounter (statuses as of 02/14/2024) Active Problems Problem Noted Date Diagnosed Date Esophageal varices without bleeding 02/14/2024 Other psoriasis 10/20/2002 OBESITY, UNSPECIFIED 02/14/2002 BENIGN HYPERTENSION 02/14/2002 documented as of this encounter (statuses as of 02/14/2024) Resolved Problems Problem Noted Date Diagnosed Date Resolved Date Protein-calorie malnutrition 07/24/2020 02/14/2024 documented as of this encounter (statuses as of 02/14/2024) Immunizations Name Administration Dates Next Due Covid-19 Ad26, Single Dose (Sherif/J&J) 021 Seasonal Influenza, PF, 6 M & above, IM , (FluLaval or Fluzone) 01/09/2021 Seasonal Influenza, Trivalent, (IIV3), PF, (Fluz one) 02/14/2024 TDAP (age 10 and older)(Boostrix) 10/26/2011 TDAP, Age 7 and older, IM (Adacel) 02/14/2024 documented as of this encounter Social History [...] 01/31/2024 Does the household have a re gular source of income? (Household - for ages [...] AM EST documented as of this encounter Last Filed Vital Signs Vital Sign Reading Time Taken Comments Blood Pressure 138/62 02/14/2024 9:42 AM EST Pulse 94 02/14/2024 8:48 AM EST Temperature 36.8 C (98.3 F) 02/14/2024 8:48 AM ES T Respiratory Rate 16 02/14/2024 8:48 AM EST Oxygen Saturation - - Inhaled Oxygen Concentration - - Weight 98.4 kg (217 lb) 02/14/2024 8:48 AM EST Height 177.8 cm (5' 10") 02/14/2024 8:48 AM EST Body Mass Index 31.14 02/14/2024 8:48 AM EST documented in this encounter Progress Notes * Ed Jovel III, MD - 02/14/2024 9:43 AM EST Subjective: [place] is a 63 year old male. Chief Complaint Patient presents with Follow Up Med check Medication Administration Flu and/or Pneumo Inj HPI: Follow-up hypertension history of esophageal varices increased edema denies chest pain shortness of breath no bleeding urine or bowels no nausea or vomiting not getting much in the way of exercise will try an increase PHM: Patient Active Problem List Diagnosis OBESITY, UNSPECIFIED BENIGN HYPERTENSION Other psoriasis Esophageal varices without bleeding (HCC) Current Outpatient Medications Medication Sig Dispense Refill Centrum Adults Oral Tablet Take 1 Tab by mouth daily. Folic Acid 400 MCG Oral Tablet (Folate) Take 1 Tab by mouth daily. 100 Tab 3 Thiamine HCl 250 MG Oral Tablet Take 1 Tab by mouth daily. Fluocinonide 0.05 % External Cream Apply topically to affected area 2 times a day. Apply to elbow rash 30 g 2 Furosemide 40 MG Oral Tablet (Lasix) Take 1.5 Tablets by mouth in the morning. 135 Tablet 0 Spironolactone 100 MG Oral Tablet (Aldactone) Take 1 Tablet by mouth in the morning. 90 Tablet 3 Cetirizine HCl 10 MG Oral Tablet (ZyrTEC) 1 Tablet. (Patient not taking: Reported on 02/14/2024) No current facility-administered medications for this visit. No past medical history on file. No past surgical history on file. Review of patient's allergies indicates: Allergen Reactions Pollen Conjunctivitis Objective: BP 138/62 | Pulse 94 | Temp 98.3 F (36.8 C) | Resp 16 | Ht 5' 10" (1.778 m) | Wt 217 lb (98.4 kg) | BMI 31.14 kg/m | BSA 2.2 m Physical Exam: General: alert, healthy, and no distress Eye Exam: PERRLA, extraocular movements intact, conjunctiva are pink and non- injected, sclera clear Oropharynx: no exudate, no erythema, lips, buccal mucosa, and tongue normal, and mucous membranes are moist Heart: regular rate & rhythm, no murmur, and no gallops Lungs: lungs clear to auscultation Extremities: no clubbing, no cyanosis +2 pitting edema bilaterally ASSESSMENT/PLAN: Need for prophylactic vaccination and inoculation against influenza (Primary) - INFLUENZA VAC, TRIVALENT, (IIV3), PF, 0.5 ML (FLUZONE) Need for rchwvxofki-lfjrvvg-zzmsgqptq (Tdap) vaccine - TDAP (AGE 7 AND OLDER), ADACEL Esophageal varices without bleeding, unspecified esophageal varices type (HCC) HTN, goal below 140/90 - BASIC METABOLIC PANEL; Future; Expected date: 02/14/2024 Edema, unspecified type Other orders - Furosemide 40 MG Oral Tablet (Lasix); Take 1.5 Tablets by mouth in the morning. - Spironolactone 100 MG Oral Tablet (Aldactone); Take 1 Tablet by mouth in the morning. Call if problems continue spironolactone dosing current labs 1 week Total time 32 minutes Follow Up: Return in about 6 months (around 08/14/2024). Ed Jovel III, MD * Shakira Alanis LPN - 02/14/2024 8:47 AM EST PRE - ADMINISTRATION DOCUMENTATION Are you experiencing any cold symptoms or fever? No Have you had Guillain-[place] Syndrome (an illness that causes paralysis) within the last 6 weeks? No Have you had the flu shot in the past? YES Have you ever had a reaction to the flu shot? No Shakira Alanis LPN, 02/14/2024 8:47 AM Immunization Administration Documentation Time Out Procedure Performed: Yes Patient Identified (Ask Name/Date of ): Yes Does the patient have a fever greater than 101 degrees today? No Patient allergic to latex? No VFC Stock: No Immunization(s) verified: Yes, Immunization Name: Flu and Tdap (Adacel), VIS Sheet(s) given: Yes Verified Side and Site: Yes Verified Shot(s) with Parent(s)/Patient: Yes documented in this encounter Nursing Notes * Shakira Alanis LPN - 02/14/2024 8:46 AM EST The patient has been properly identified by confirmation of name and date of . Chief Complaint Patient presents with Follow Up Med check documented in this encounter Plan of Treatment Upcoming Encounters Date Type Department Care Team (Late st Contact Info) Description 08/14/2024 9:00 AM EDT Office Visit Family Practice [facility] 200 [facility] [place] [address] Ed Jovel III, MD 200 [facility] [place] [address] Scheduled Orders Name Type Priority Associated Diagnoses Orde r Schedule COMPREHENSIVE METABOLIC PANEL Lab Routine HTN, goal below 140/90 Edema, unspecified type Expected: 02/14/2024 (Approximate), Expires: 02/13/2025 Health Maintenance Due Date Last Done Comments Depression Screening 1971 HIV Screening 10/14/1974 Cologuard 10/14/2004 Colonoscopy 10/14/2004 Colorectal Cancer Screening 10/14/2004 Fecal Occult Blood Test 10/14/2004 Sigmoidoscopy 10/14/2004 Zoster Vaccines (1 of 2) 10/14/2009 COVID-19 Vaccine (2 - season) 2023 06/19/2020 GFR 02/07/2025 02/08/2024, 08/0 05/2022, 09/11/2022, Additional history exists Lipid Panel 06/06/2025 06/06/2020, 04/2 07/2010, 07/10/2009, Additional history exists Albumin/Creatinine Ratio 09/11/2025 09/11/2022 Diabetes Screening 02/07/2027 02/08/2024, 0 2022, 09/11/2022, Additional history exists DTap/Tdap Vaccines (3 - Td or Tdap) 02/13/2034 02/14/2024, 10/26/2011 Influenza Vaccine (FLU shot) Completed 02/14/2024, 01/09/2021 HPV (Gardasil) Vaccine Aged Out No lo [...] as of this encounter Visit Diagnoses Diagnosis Need for prophylactic vaccination and inoculation against influenza- Primary Need for wsttgssuef-jroucec-cyrupqehu (Tdap) vaccine Need for prophylactic vaccination with combined utzelsmbwy-gayunvq-kxyiuudgm (DTP) vaccine Esophageal varices without bleeding, unspecified esophageal varices type (HCC) HTN, goal below 140/90 Unspecified essential hypertension Edema, unspecified type documented in this encounter Care Teams Checker Product Design Relationship Specialty Start Date End Date Ed Jovel III, MD 200 [place] [address] PCP - General Family Medicine 11/19/11 documented as of this encounter
--- OUTSIDE RECORDS SUMMARY | 2024-03-20 21:03 | External Medical Summary | Summary of Care ---
Author Name Unknown Organization [facility] Address [address] [place] [address] Phone [phone] Care Team Providers Care Radiologist Physician Name Role Phone Becka GUZMAN MD, John E Primary Care Provider [phone] Reason for Visit * Reason Comments Medication Refill Encounter Details Date Type Department Care Team (Late st Contact Info) Description 12/15/2023 Refill Family Practice [facility] 200 [place] [address] Dylon Sparks, 200 [place] [address] Allergies Active Allergy Reactions Criticality Noted Date [...] mouth in the morning. 30 Tablet 12/15/2023 12/15/2023 Discontinued (Refill) documented as of this encounter [...] as of this encounter Miscellaneous Notes * Telephone Encounter - Naina Sequeira CPhT - 12/15/2023 11:56 AM EDTNo prescriptions requested or ordered in this encounter documented in this encounter Plan of Treatment Upcoming Encounters Date Type Department Care Team (Late st Contact Info) Description 01/18/2024 8:40 AM EST Office Visit Family Practice [facility] [place] [address] [facility] [place] [address] Ed Jovel III, MD 200 [facility] [place] [address] Health Maintenance Due Date Last Done Comments [...] (#1) 2023 01/09/2021 Lipid Panel 06/06/2025 06/06/2020, 04/07/2010, 07/10/2009, Additional history exists Albumin/Creatinine Ratio 09/11/2025 [...] filedocumented as of this encounter Care Teams Radiologist Physician Relationship Specialty Start Date End Date Ed Jovel III, MD [address] [facility] [place] [address] PCP - General Family Medicine 11/19/11 documented as of this encounter
--- OUTSIDE RECORDS SUMMARY | 2024-03-20 21:03 | External Medical Summary | Summary of Care ---
Author Name Unknown Organization [facility] Address [address] [facility] [address] Phone [phone] Care Team Providers Care Crusher Plant Operator Name Role Phone Becka GUZMAN MD, Ed Horton Primary Care Provider [phone] Encounter Details Date Type Department Care Team (Late st Contact Info) Description 02/17/2024 Orders Only PATIENT PORTAL DO NOT DELETE THIS DEPT USED BY [place] [address] Allergies Active Allergy Reactions Criticality Noted Date Comments Pollen Conjunctivitis 08/14/2022 documented as of this encounter (statuses as of 02/17/2024) Medications Centrum Adults Oral Tablet Take 1 [...] the morning. 90 Tablet 3 4 Active Furosemide 40 MG Oral Tablet (Lasix) Take 1 and 1/2 Tablets by mouth in the morning. 135 Tablet 3 4 Active documented as of this encounter (statuses as of 02/17/2024) Active Problems Problem Noted Date Diagnosed Date Esophageal varices without bleeding 02/14/2024 Other psoriasis 10/20/2002 OBESITY, UNSPECIFIED 02/14/2002 BENIGN HYPERTENSION 02/14/2002 documented as of this encounter (statuses as of 02/17/2024) Resolved Problems Problem Noted Date Diagnosed Date Resolved Date Protein-calorie malnutrition 07/24/2020 02/14/2024 documented as of this encounter (statuses as of 02/17/2024) Immunizations Name Administration Dates Next Due Covid-19 [...] 9:00 AM EDT Office Visit Family Practice [facility] 200 [facility] [place] [address] Ed Jovel III, MD [address] [facility] [place] [address] Health Maintenance Due Date Last Done Comments Depression Screening 1971 HIV Screening 10/14/1974 Cologuard 10/14/2004 Colonoscopy 10/14/2004 Colorectal Cancer Screening 10/14/2004 Fecal Occult Blood Test 10/14/2004 Sigmoidoscopy 10/14/2004 Zoster Vaccines (1 of 2) 10/14/2009 COVID-19 Vaccine ( season) 2023 06/19/2020 GFR 02/07/2025 02/08/2024, 08/0 [...] filedocumented as of this encounter Care Teams Crusher Plant Operator Relationship Specialty Start Date End Date Ed Jovel III, MD [address] [place] [address] PCP - General Family Medicine 11/19/11 documented as of this encounter
--- OUTSIDE RECORDS SUMMARY | 2024-03-20 21:03 | External Medical Summary | Summary of Care ---
Author Name Unknown Organization [facility] Address [address] [place] [address] Phone [phone] Care Team Providers Care Instrument And Controls Technician Name Role Phone Becka GUZMAN MD, John E Primary Care Provider [phone] Reason for Visit * Reason Onset Date Comments Health Maintenance 02/29/2024 Encounter Details Date Type Department Care Team (Late st Contact Info) Description 02/29/2024 Telephone Family Practice [facility] [place] [facility] [place] [address] Ed Jovel III, MD [address] [place] [facility] [address] Health Maintenance Allergies Active Allergy Reactions Criticality Noted Date Comments Pollen Conjunctivitis 08/14/2022 documented as of this encounter (statuses as of 02/29/2024) Medications Centrum Adults Oral Tablet Take 1 [...] mouth in the morning. 135 Tablet 3 02/25/2024 10:21 AM EST 4 Active documented as of this encounter (statuses as of 02/29/2024) Active Problems Problem Noted Date Diagnosed Date Esophageal varices without bleeding 02/14/2024 Other psoriasis 10/20/2002 OBESITY, UNSPECIFIED 02/14/2002 BENIGN HYPERTENSION 02/14/2002 documented as of this encounter (statuses as of 02/29/2024) Resolved Problems Problem Noted Date Diagnosed Date Resolved Date Protein-calorie malnutrition 07/24/2020 02/14/2024 documented as of this encounter (statuses as of 02/29/2024) Immunizations Name Administration Dates Next Due Covid-19 [...] AM EST documented as of this encounter Miscellaneous Notes * Telephone Encounter - Naina Cardenas LPN - 02/29/2024 8:05 AM EST Care Gaps Comprehensive Care Outreach Last Office/Telemedicine Visit: 02/14/2024 (in office), 10/29/2021 (telemedicine) Next Office Visit: 08/14/2024 Hemoglobin AIC Results: No results found for: "HEMOGLOBIN A1C" BP Readings from Last 1 Encounters: 02/14/24 138/62 Reviewed Health Maintenance below: Health Maintenance Topic Date Due Depression Screening Never done HIV Screening Never done Colorectal Cancer Screening Never done Zoster Vaccines (1 of 2) Never done COVID-19 Vaccine ( season) 2023 Cologuard follow Care Gap Outreach Action Taken: Acorio message sent documented in this encounter Plan of Treatment Upcoming Encounters Date Type Department Care Team (Late st Contact Info) Description 08/14/2024 9:00 AM EDT Office Visit Family Practice State [facility] [place] [address] [facility] [place] [address] Ed Jovel III, MD [address] [facility] [place] [address] Health Maintenance Due Date Last Done Comments [...] filedocumented as of this encounter Care Teams Instrument And Controls Technician Relationship Specialty Start Date End Date Ed Jovel III, MD 200 [place] [address] PCP - General Family Medicine 11/19/11 documented as of this encounter
--- OUTSIDE RECORDS SUMMARY | 2024-03-20 21:03 | External Medical Summary | Summary of Care ---
Author Name Unknown Organization [facility] Address [address] [place] [address] Phone [phone] Care Team Providers Care Desk Top Publisher Name Role Phone Becka GUZMAN MD, John E Primary Care Provider [phone] Reason for Visit * Reason Onset Date Comments Medication Refill 12/16/2023 Encounter Details Date Type Department Care Team (Late st Contact Info) Description 12/16/2023 Refill Family Practice [facility] [address] [facility] [place] [address] Clara Eason III, MD 200 [place] [address] Allergies Active Allergy Reactions Criticality Noted Date Comments Pollen Conjunctivitis 08/14/2022 documented as of this encounter (statuses as of 12/17/2023) Medications Medication Sig Dispensed Refills Start Date [...] Oral Tablet (ZyrTEC) 1 Tablet. 10/21/2021 Active Spironolactone 100 MG Oral Tablet (Aldactone) Take 1 Tablet by mouth in the morning. 90 Tablet 12/15/2023 Active Furosemide 40 MG Oral Tablet (Lasix) Take 1 Tablet by mouth in the morning. 180 Tablet 12/17/2023 Active Furosemide 40 MG Oral Tablet (Lasix) Take 1 Tablet by mouth in the morning. 180 Tablet 06/14/2023 12/16/2023 Discontinued (Refill) documented as of this encounter (statuses as of 12/17/2023) Active Problems Problem Noted Date Diagnosed Date Protein-calorie malnutrition 07/24/2020 Other psoriasis 10/20/2002 OBESITY, UNSPECIFIED 02/14/2002 BENIGN HYPERTENSION 02/14/2002 documented as of this encounter (statuses as of 12/17/2023) Immunizations Name Administration Dates Next Due Covid-19 [...] encounter Miscellaneous Notes * Telephone Encounter - Clara Eason III, MD - 12/17/2023 8:37 AM EDTSigned Prescriptions: Disp Refills Furosemide 40 MG Oral Tablet (Lasix) 180 Ta*0 Sig: Take 1 Tabletby mouth in the morning.Authorizing Provider: CLARA EASON III * Telephone Encounter - Yolanda Schmidt CPhT - 12/17/2023 8:11 AM EDT Pt requesting HIGH PRIORITY due to out of med Pt calling to check on status of Furosemide 40 MG Oral Tablet (Lasix) . Caller can be reached at [phone]. Thank you, Yolanda Schmidt CPhT Paramedic Supervisor II [facility] ([facility]) (Formerly Telepharmacy) 12/17/2023,8:11 AM * Telephone Encounter - Lyudmila Felix, patient access manager - 12/16/2023 9:14 AM EDT Patient is requesting high priority states he is going on vacation Did you pend patient's preferred pharmacy and medication before forwarding?yes Pharmacy: [id number] Pending Prescriptions: Disp Refills Furosemide 40 MG Oral Tablet (Lasix) 180 Ta*0 Sig: Take 1 Tablet by mouth in the morning. Last Visit: 01/09/2021 (in office), 10/29/2021 (telemedicine) Next Visit: 01/18/2024 If no future appointments scheduled, and last appointment is greater than a year ago, please schedule patient for a follow-up appointment Last date the medication was ordered: 06/14/2023 Is this request for a controlled substance?No [...] 8:40 AM EST Office Visit Family Practice [facility] [place] [address] [facility] [place] [address] Clara Eason III, MD [address] [facility] [place] [address] Health Maintenance Due Date Last Done Comments [...] filedocumented as of this encounter Care Teams Desk Top Publisher Relationship Specialty Start Date End Date Clara Eason III, MD 200 [place] [address] PCP - General Family Medicine 11/19/11 documented as of this encounter
--- OUTSIDE RECORDS SUMMARY | 2024-03-20 21:03 | External Medical Summary ---
Author Name Unknown Address Unknown Organization K09[facility] [place] [address] Laboratory Report Ordering Provider Test Date Status CATHY BLOUNT 02/08/2024 09:35:12 Final Associated diagnosis code V5 8.69.ICD-9-CM was changed to 377452 on 12/14/23 as a result of a periodic change by regulatory authority. Observation Date Value Abnormality Reference (Units ) Status BUN 02/08/2024 09:35:12 7 6-20 (mg/dL) Final Creatinine 02/08/2024 09:35:12 0.7 0.6-1.2 (mg/dL) Final Glomerular filtration rate/1.73 sq M.predicted [Volume Rate/Area] in Serum, Plasma or Blood by Creatinine-based formula (CKD-EPI) 02/08/2024 09:35:12 >90 >=60 (mL/min) Final eGFR is calculated based on the CKD-EPI 2020 equation. Sodium 02/08/2024 09:35:12 132 Below low normal 135 -146 (mmol/L) Final Potassium 02/08/2024 09:35:12 3.8 3.5-5.1 (m mol/L) Final Cl 02/08/2024 09:35:12 99 98-107 (mm ol/L) Final CO2 02/08/2024 09:35:12 21 Below low normal 22- 32 (mmol/L) Final Anion gap 02/08/2024 09:35:12 12 7-15 (mmol /L) Final Glucose 02/08/2024 09:35:12 107 70-120 (mg /dL) Final Calcium 02/08/2024 09:35:12 8.7 8.4-10.2 ( mg/dL) Final Performing Location [facility] [address] [place] [address]
--- OUTSIDE RECORDS SUMMARY | 2024-03-20 21:03 | External Medical Summary | Summary of Care ---
Author Name Unknown Organization [facility] Address [address] [place] [address] Phone [phone] Care Team Providers Care Clinical Cytogenetics Director Name Role Phone Becka GUZMAN MD, John E Primary Care Provider [phone] Reason for Visit * Reason Onset Date Comments Health Maintenance 03/01/2024 Encounter Details Date Type Department Care Team (Late st Contact Info) Description 03/01/2024 Telephone Family Practice [facility] 200 [facility] [place] [address] Ed Jovel III, MD [facility] [address] Health Maintenance Allergies Active Allergy Reactions Criticality Noted Date Comments Pollen Conjunctivitis 08/14/2022 documented as of this encounter (statuses as of 03/01/2024) Medications Centrum Adults Oral Tablet Take 1 [...] mouth in the morning. 90 Tablet 3 03/01/2024 8:57 AM EST 12/02/202 4 Active Furosemide 40 MG Oral Tablet (Lasix) Take 1 and 1/2 Tablets by mouth in the morning. 135 Tablet 3 02/25/2024 10:21 AM EST 4 Active documented as of this encounter (statuses as of 03/01/2024) Active Problems Problem Noted Date Diagnosed Date Esophageal varices without bleeding 02/14/2024 Other psoriasis 10/20/2002 OBESITY, UNSPECIFIED 02/14/2002 BENIGN HYPERTENSION 02/14/2002 documented as of this encounter (statuses as of 03/01/2024) Resolved Problems Problem Noted Date Diagnosed Date Resolved Date Protein-calorie malnutrition 07/24/2020 02/14/2024 documented as of this encounter (statuses as of 03/01/2024) Immunizations Name Administration Dates Next Due Covid-19 [...] Telephone Encounter - Naina Cardenas LPN - 03/01/2024 3:04 PM EST Care Gaps Comprehensive Care Outreach Last [...] Never done COVID-19 Vaccine ( season) 2023 Just reached out yesterday Care Gap Outreach Action Taken: Outreach not indicated documented in this encounter Plan of Treatment Upcoming Encounters Date Type Department Care Team (Late st Contact Info) Description 08/14/2024 9:00 AM EDT Office Visit Family Practice [facility] 200 [facility] [place] [address] Ed Jovel III, MD 200 [facility] [place] [address] Health Maintenance Due Date Last Done Comments [...] filedocumented as of this encounter Care Teams Clinical Cytogenetics Director Relationship Specialty Start Date End Date Ed Jovel III, MD 200 [place] [address] PCP - General Family Medicine 11/19/11 documented as of this encounter
--- OUTSIDE RECORDS SUMMARY | 2024-03-20 21:04 | External Medical Summary | Summary of Care ---
Author Name Unknown Organization [facility] Address [address] [place] [address] Phone [phone] Care Team Providers Care Insurance Sales Agent Name Role Phone Becka GUZMAN MD, John E Primary Care Provider [phone] Reason for Visit * Reason Onset Date Comments Medication Refill Status Check 12/13/2023 Encounter Details Date Type Department Care Team (Late st Contact Info) Description 12/13/2023 Refill Family Practice [facility] [address] [place], [facility] [address] Allergies Active Allergy Reactions Criticality Noted Date [...] encounter Miscellaneous Notes * Telephone Encounter - Ирина Allen PHARM Tech - 12/15/2023 10:38 AM EDT Mail order aware aware pt needs appt. fpr further refills. Thank you, Ирина Allen [facility] Designer II [facility] ([facility]) 12/15/2023, 10:38 AM [...] appt * Telephone Encounter - Kiya Quick [facility] - 12/14/2023 2:49 PM EDT Pending Prescriptions: Disp Refills Spironolactone 100 MG Oral Tablet (Aldacto*90 Tab*0 Sig: Take 1 Tablet by mouth in the morning. * Telephone Encounter - Jessie Wheeler CPhT - 12/14/2023 1:26 PM EDT Did you pend patient's preferred pharmacy and medication before forwarding?yes Pharmacy: [email or web address] Pending Prescriptions: Disp Refills [...] (#1) 2023 01/09/2021 Lipid Panel 06/06/2025 06/06/2020, /07/2010, 07/10/2009, Additional history exists Albumin/Creatinine Ratio 09/11/2025 [...] filedocumented as of this encounter Care Teams Insurance Sales Agent Relationship Specialty Start Date End Date Clara Eason III, MD 200 [place] [address] PCP - General Family Medicine 11/19/11 documented as of this encounter
--- OUTSIDE RECORDS SUMMARY | 2024-03-20 21:04 | External Medical Summary | Summary of Care ---
Author Name Unknown Organization [facility] Address [address] [place] [address] Phone [phone] Care Team Providers Care Head Mixer Name Role Phone Becka GUZMAN MD, John E Primary Care Provider [phone] Reason for Visit * Reason Onset Date Comments Medication Refill Status Check 12/13/2023 Encounter Details Date Type Department Care Team (Late st Contact Info) Description 12/13/2023 Refill Family Practice [facility] 200 [facility] [place] [address] [place]ylon Sparks, [facility] [address] Allergies Active Allergy Reactions Criticality Noted Date [...] appt * Telephone Encounter - Kiya Quick [facility] - 12/14/2023 2:49 PM EDT Pending Prescriptions: Disp Refills Spironolactone 100 MG Oral Tablet (Aldacto*90 Tab*0 Sig: Take 1 Tablet by mouth in the morning. * Telephone Encounter - Jessie Wheeler [facility] - 12/14/2023 1:26 PM EDT Did you pend patient's preferred pharmacy and medication before forwarding?yes Pharmacy: [facility] Pending Prescriptions: Disp Refills [...] filedocumented as of this encounter Care Teams Head Mixer Relationship Specialty Start Date End Date Clara Eason III, MD 200 [place] [address] PCP - General Family Medicine 11/19/11 documented as of this encounter
[2024-03-20] MEDS: POTASSIUM CHLORIDE CRTAB 20 MEQ TABCR PO SCH (21:45)
[2024-03-20] MEDS: MAGNESIUM CHLORIDE W/CALCIUM 64MG DELAYED REL TAB PO SCH (21:46)
[2024-03-21 04:38] LABS: Albumin Level 2.8 gm/dl (3.4-5.0); BUN Creatinine Ratio 9.3 (10-20); Bilirubin Direct 2.6 mg/dl (0-0.2); Bilirubin,Total 6.7 mg/dl (0.2-1.0); Calcium 8.2 mg/dl (8.6-10.3); Creatinine Clr Calc Pharmacy 118.7 ml/min; INR 1.7 (0.9-1.1); Magnesium 1.8 mg/dl (1.7-2.4); Potassium 3.7 mmol/L (3.5-5.1); Prothrombin Time 17.3 Seconds (9.0-12.0)
--- NOTE | 2024-03-21 07:01 | Electrocardiogram Report ---
Test Reason : Blood Pressure : */* mmHG Vent. Rate : 98 BPM Atrial Rate : 98 BPM P-R Int : 174 ms QRS Dur : 80 ms QT Int : 410 ms P-R-T Axes : 64 -14 45 degrees QTcB Int : 523 ms Sinus rhythm with Fusion complexes Nonspecific T wave abnormality Prolonged QT Abnormal ECG When compared with ECG of 06-Oct-2019 06:51, Fusion complexes are now Present Vent. rate has increased by 35 bpm QT has lengthened Confirmed by Jl Pike ([id number]) on 03/21/2024 7:00:59 AM Referred By: Confirmed By: Jl Pike
[2024-03-21] MEDS: ALBUMIN 25% 25 GM/100 ML VIAL IV SCH (07:43)
[2024-03-21] MEDS: CHOLECALCIFEROL 125 MCG (5,000 UNITS) TAB PO SCH (08:37)
--- NOTE | 2024-03-21 10:57 | Hospitalist Progress Note ---
Date of Service March 21, 2024 Assessment & Plan (1) Decompensated cirrhosis: Plan: Mainly in the form of worsening edema, albumin was 2.8, patient was started on albumin infusion 25% 25 g every 6 hours, continue with Lasix 40 mg IV twice daily, monitor intake and output. Reexamine lower extremities on a daily basis. INR is 1.7 which seems to be his baseline, sodium is 127 which is understandable considering his general volume overload state. Total bilirubin is 6.7 which is better than yesterday 7.1, no recent chemistry work that I can compare otherwise. (2) Thrombocytopenia: Plan: Secondary to underlying liver disease. (3) Abnormal urinalysis: Plan: Urinalysis appeared to be abnormal although patient denies having any symptoms, no objection continuing empirical ceftriaxone daily until urine culture is finalized. (4) Vitamin D deficiency: Plan: Started vitamin D supplement. Plan Continue with IV Lasix and albumin infusion, monitor intake and output and daily examination of lower extremities. Admission and Anticipated Discharge Date Admission Date: March 20, 2024 Subjective Patient is a 63-year-old gentleman with history of liver cirrhosis, hypertension and history of esophageal varices with previous bleed who came in because of lower extremity edema which has been worse from the past, his LFT was found to be at baseline, when I saw him in the emergency room, he denied ever having had paracentesis, he usually takes Lasix but this has not been effective lately. Patient was seen and examined, he has about 4+ pedal edema up to mid thighs. Patient is on IV Lasix and albumin. Physical Exam Physical Exam: VITALS: Reviewed. WEIGHT/BMI reviewed. GEN: Healthy appearing, well-developed, NAD. CV: RRR, no m/r/g. LUNGS: CTAB, no w/r/c. ABD: Soft, NT/ND, NBS, no masses or organomegaly. : N/A EXT: No clubbing, cyanosis, extensive 4+ pedal edema bilaterally up to mid thighs with no erythema Results & Data Results & Data Vital Signs (Past 12 Hours) Vital Signs Pulse Pulse Resp BP BP Pulse Ox O2 Del Method 03/21/24 10:20 98 H 16 131/70 97 Room Air 03/21/24 07:40 83 16 130/72 95 Room Air 03/21/24 06:33 91 H 17 03/21/24 05:00 82 17 Room Air 03/21/24 01:09 90 23 03/21/24 01:08 126/73 03/21/24 01:08 126/73 03/21/24 01:08 90 16 126/73 96 03/20/24 23:51 92 H 12 03/20/24 23:48 88 13 95 03/20/24 23:30 91 H 16 95 03/20/24 23:27 91 H 16 95 03/20/24 23:27 92 H Laboratory Results Laboratory Results - last 24 hr 03/20/24 03/20/24 03/20/24 14:27 18:57 Unknown WBC 9.15 RBC 3.46 L Hgb 12.1 L Hct 34.1 L MCV 98.6 MCH 35.0 H MCHC 35.5 RDW Std Deviation 53.1 H RDW Coeff of Aleah 14.6 H Plt Count 70 L MPV 10.0 Immature Gran % (Auto) 0.8 Neut % (Auto) 72.8 Lymph % (Auto) 16.1 [place] % (Auto) 9.3 Eos % (Auto) 0.5 Baso % (Auto) 0.5 Neut # (Auto) 6.66 H Lymph # (Auto) 1.47 [place] # (Auto) 0.85 H Eos # (Auto) 0.05 Baso # (Auto) 0.05 Immature Gran # (Auto) 0.07 PT 16.6 H INR 1.6 H APTT 32 H PTT Ratio 1.2 Sodium 127 L Potassium 3.0 L Chloride 95 L Carbon Dioxide 23 Anion Gap 9 BUN 6 Creatinine 0.76 Est Cr Clr Drug Dosing 117.1 eGFR 100.37 BUN/Creatinine Ratio 7.9 L Glucose 144 H Osmolality 274 L Calcium 8.4 L Magnesium 1.5 L Total Bilirubin 7.1 H Direct Bilirubin AST 68 H ALT 33 Alkaline Phosphatase 123 H Ammonia 27.0 Troponin I High Sens 7.9 B-Natriuretic Peptide 45 Total Protein 6.4 Albumin 3.0 L Globulin 3.4 Albumin/Globulin Ratio 0.9 25-OH Vitamin D Total TSH 3.096 Urine Color Yellow Urine Appearance Clear Urine pH 6.5 Ur Specific [place] 1.005 Urine Protein Negative Urine Glucose (UA) Negative Urine Ketones Negative Urine Blood Negative Urine Nitrite Positive A Urine Bilirubin Negative Urine Urobilinogen Negative Ur Leukocyte Esterase 2+ H Urine WBC (Auto) 21-50 H Urine RBC (Auto) 0-2 U Hyaline Cast (Auto) 0-2 U Epithel Cells (Auto) 0-2 Urine Bacteria (Auto) 3+ H Urine Osmolality 216 L 03/21/24 03:41 WBC RBC Hgb Hct MCV MCH MCHC RDW Std Deviation RDW Coeff of Aleah Plt Count MPV Immature Gran % (Auto) Neut % (Auto) Lymph % (Auto) [place] % (Auto) Eos % (Auto) Baso % (Auto) Neut # (Auto) Lymph # (Auto) [place] # (Auto) Eos # (Auto) Baso # (Auto) Immature Gran # (Auto) PT 17.3 H INR 1.7 H APTT PTT Ratio Sodium 127 L Potassium 3.7 D Chloride 96 L Carbon Dioxide 22 Anion Gap 9 BUN 7 Creatinine 0.75 Est Cr Clr Drug Dosing 118.7 eGFR 100.77 BUN/Creatinine Ratio 9.3 L Glucose 98 Osmolality Calcium 8.2 L Magnesium 1.8 Total Bilirubin 6.7 H Direct Bilirubin 2.6 H AST 66 H ALT 32 Alkaline Phosphatase 114 H Ammonia Troponin I High Sens B-Natriuretic Peptide Total Protein 6.0 Albumin 2.8 L Globulin Albumin/Globulin Ratio 25-OH Vitamin D Total 10.9 L TSH Urine Color Urine Appearance Urine pH Ur Specific [place] Urine Protein Urine Glucose (UA) Urine Ketones Urine Blood Urine Nitrite Urine Bilirubin Urine Urobilinogen Ur Leukocyte Esterase Urine WBC (Auto) Urine RBC (Auto) U Hyaline Cast (Auto) U Epithel Cells (Auto) Urine Bacteria (Auto) Urine Osmolality Diagnostic Findings Chest X-Ray 03/20/24 14:25 XR chest 1V not portable CLINICAL HISTORY: Chest pain, nonspecific COMPARISON STUDY: No previous studies for comparison. FINDINGS: Lung volumes are normal. There is no consolidation. Linear right basilar density represents atelectasis. There is no pneumothorax or pleural effusion. Cardiac size is normal. Opacity at the right cardiophrenic angle represents epicardial fat pad. There is no evidence for pulmonary edema. IMPRESSION: No acute cardiopulmonary findings. ACT 112: Negative or not required by law. Electronically signed by: Abdiaziz Luis M.D. 03/20/2024 3:42 PM Venous Doppler Study 03/20/24 14:57 BILATERAL LOWER EXTREMITY VENOUS DOPPLER HISTORY: swelling COMPARISON STUDY: None FINDINGS: No evidence of DVT seen at bilateral lower extremities. IMPRESSION: Negative for DVT. ACT 112: Negative or not required by law. Electronically signed by: Erick Dewitt M.D. 03/20/2024 3:56 PM Abdomen Ultrasound 03/20/24 16:57 INDICATION: Evaluate for abdominal ascites. TECHNIQUE: Sonographic transabdominal grayscale evaluation of the abdomen to assess for ascites. COMPARISON: CT from 10/04/2019. FINDINGS/IMPRESSION: Small volume ascites noted. Electronically signed by Jeison Pillai 03-20-2024 6:51 PM Medications Administered Current Inpatient Medications Acetaminophen (Acetaminophen 500 Mg Tab) 500 mg PO Q6H PRN PRN Reason: Pain or Fever Stop: 04/19/24 19:28 Furosemide (Furosemide 40 Mg/4 Ml Vial) 40 mg IV BIDR [facility] Stop: 04/19/24 19:28 Last Admin: 03/21/24 07:43 Dose: 40 mg Albumin Human (Albumin 25%) 25 gm in 100 mls @ 50 mls/hr IV Q6 RONI Stop: 03/24/24 07:21 Last Infusion: 03/21/24 09:49 Dose: Infused Magnesium Chloride (Magnesium Chloride W/Calcium 64mg Delayed Rel Tab) 64 mg PO BID RONI Stop: 04/19/24 20:59 Last Admin: 03/21/24 08:37 Dose: 64 mg Polyethylene Glycol (Polyethylene (Miralax) 17 Gm Pack) 17 gm PO DAILY PRN PRN Reason: Constipation Stop: 04/19/24 19:28 Potassium Chloride (Potassium Chloride Crtab 20 Meq Tabcr) 40 meq PO BIDM RONI Stop: 04/19/24 21:14 Last Admin: 03/21/24 08:37 Dose: 40 meq Vitamin D (Cholecalciferol 125 Mcg (5,000 Units) Tab) 125 mcg PO QAM RONI Stop: 04/20/24 08:59 Last Admin: 03/21/24 08:37 Dose: 125 mcg
--- NOTE | 2024-03-21 11:00 | Gastrointestinal Consultation ---
Date of Consultation March 21, 2024 Assessment & Plan (1) Liver cirrhosis: -Agree with cardiac work-up/echocardiogram -Small amount of ascites unlikely amenable to paracentesis -Continue diuretic adjustments with Lasix 40 mg BID; consider addition of Aldactone as he is prescribed this as an outpatient -US doppler pending -Continue alcohol avoidance -Avoid NSAIDs; limit Tylenol to <2000 mg daily in q 6 hour prn divided doses -Limit Na to <2000 mg daily -Continue to monitor daily CMP & INR for MELD calculations -Patient needs established with hepatology -Will need outpatient HCC surveillance with AFP and liver imaging q 6 months -AFP ordered this admission; Hepatitis studies ordered -MRI Liver -Will need EGD for variceal surveillance as outpatient as well Please ensure patient is arranged with [facility] upon discharge. Supervising Physician Co-Signing Physician Notes I saw and examined this patient with our nurse practitioner and agree with her assessment and plan. Major issue is his persistent lower extremity edema. No signs of acute deterioration of liver disease. No signs of GI bleeding, no encephalopathy and no significant ascites on ultrasound. 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 His hyperbilirubinemia is not new. Recommend increasing spironolactone to 100 mg twice a day in addition to his furosemide. Close monitoring of renal function has been stable. Recommend MRI MRCP to rule out HCC and portal vein thrombosis. MRCP to evaluate biliary tree in light of the hyperbilirubinemia. Consult dietitian for 2 g sodium diet. History of Present Illness Reason for Consultation: cirrhosis Attending Physician: Ananth Meek MD History of Present Illness Patient is a 63 yo male who presented to the ED for complaints of leg and scrotal swelling. Patient notes that he was working with his PCP to try to reduce the BLLE edema. He notes his Lasix was adjusted on 02/14/24, but he did not begin the new dosage until 03/03/24. He eventually felt that the swelling was so significant that he presented to the ED. He has a cardiac work-up planned, noting he had an echo today. GI has been involved in the situation due to the patient's history of cirrhosis (presumed to be alcohol related back in 2019). Patient has not been seen by anyone in our group since a hospitalization in 2019. It appears he was advised to seek hepatology evaluation. He notes that he did not do this, but notes his PCP had recently discussed a referral with him. He notes he is no longer drinking alcohol. No recent viral illness. No other med changes or health changes. No NSAID use. Minimal Tylenol use. MELD is 27. INR 1.7 (appears baseline). T bili 6.7. Liver US imaging consistent with cirrhosis, however no obvious masses/lesions. Only a small amount of ascites noted. Creatinine normal. AST 66, ALT 32. No family history of liver disease. Allergies Allergy/AdvReac Type Severity Reaction Status Date / Time No Known Allergies Allergy Verified 12/24/21 08:51 Home Medications Medication Instructions Recorded Confirmed Type folic acid 400 mcg tablet 400 mcg PO QAM 30 days #30 tabs 10/07/19 03/20/24 Rx furosemide 40 mg tablet 40 mg PO QAM 30 days #30 tabs 10/07/19 03/20/24 Rx spironolactone 100 mg tablet 100 mg PO QAM 30 days #30 tabs 10/07/19 03/20/24 Rx thiamine HCl (vitamin B1) 100 mg 100 mg PO QAM 30 days #30 tabs 10/07/19 03/20/24 Rx tablet (Vitamin B-1) Patient History Medical History Psoriasis Alcohol abuse Ascites due to alcoholic cirrhosis resolved per pt Hypertension History of COVID-19 02/2020, no test-called PCP w/report of symptoms-"textbook symptoms"; loss taste/smell, "slight" fever, chills, body aches, "felt out of it for a few weeks afterward">resolved. Depression hx GI bleed treated at [facility] 09/2019 Esophageal varices Surgical History Hx of cataract extraction rt. History of esophagogastroduodenoscopy (EGD) with banding of esophageal varices Family History Family/Other No problems noted. Other No family history of adverse response to anesthesia Denies family history of Liver disease Social History Smoking Status: Never smoker Second Hand Exposure: No; Do You Dip or Chew Tobacco: No; Hx Alcohol Use: Yes Alcohol type: beer Hx Substance Use: No Preferred Language: Turkish Communication Ability: Effective Respiratory Director Required: No Beliefs That Will Affect Care: None marital status: / Current Living Situation: Alone Current Living Situation Comment: lives with a room-mate with friend Feels Safe at Home: Yes Assistive Devices: Glasses Review of Systems Constitutional: no fever and no chills Respiratory: + dyspnea on exertion Cardiovascular: no chest pain Gastrointestinal: no abdominal pain, no heartburn, no nausea, no vomiting, no coffee ground emesis, no change in bowel habits and no melena Physical Exam Constitutional: well developed Eyes: scleral icterus Respiratory: normal respiratory effort Cardiovascular: Rate/Rhythm: regular rate Extremities: + edema Gastrointestinal (Abdomen): No fluid wave noted; Abdomen non-tender; appreciate a large hernia--patient reports an umbilical hernia has been evaluated in the past; normoactive bowel sounds Neurologic: No asterixis Psychiatric: Orientation: alert and oriented x 3 Results & Data Vital Signs (Past 12 Hours) Vital Signs Pulse Pulse Resp BP BP Pulse Ox O2 Del Method 03/21/24 10:20 98 H 16 131/70 97 Room Air 03/21/24 07:40 83 16 130/72 95 Room Air 03/21/24 06:33 91 H 17 03/21/24 05:00 82 17 Room Air 03/21/24 01:09 90 23 03/21/24 01:08 126/73 03/21/24 01:08 126/73 03/21/24 01:08 90 16 126/73 96 03/20/24 23:51 92 H 12 03/20/24 23:48 88 13 95 03/20/24 23:30 91 H 16 95 03/20/24 23:27 91 H 16 95 03/20/24 23:27 92 H Laboratory Results Laboratory Results - last 48 hr 03/20/24 03/20/24 03/20/24 14:27 18:57 Unknown WBC 9.15 RBC 3.46 L Hgb 12.1 L Hct 34.1 L MCV 98.6 MCH 35.0 H MCHC 35.5 RDW Std Deviation 53.1 H RDW Coeff of Aleha 14.6 H Plt Count 70 L MPV 10.0 Immature Gran % (Auto) 0.8 Neut % (Auto) 72.8 Lymph % (Auto) 16.1 [place] % (Auto) 9.3 Eos % (Auto) 0.5 Baso % (Auto) 0.5 Neut # (Auto) 6.66 H Lymph # (Auto) 1.47 [place] # (Auto) 0.85 H Eos # (Auto) 0.05 Baso # (Auto) 0.05 Immature Gran # (Auto) 0.07 PT 16.6 H INR 1.6 H APTT 32 H PTT Ratio 1.2 Sodium 127 L Potassium 3.0 L Chloride 95 L Carbon Dioxide 23 Anion Gap 9 BUN 6 Creatinine 0.76 Est Cr Clr Drug Dosing 117.1 eGFR 100.37 BUN/Creatinine Ratio 7.9 L Glucose 144 H Osmolality 274 L Calcium 8.4 L Magnesium 1.5 L Total Bilirubin 7.1 H Direct Bilirubin AST 68 H ALT 33 Alkaline Phosphatase 123 H Ammonia 27.0 Troponin I High Sens 7.9 B-Natriuretic Peptide 45 Total Protein 6.4 Albumin 3.0 L Globulin 3.4 Albumin/Globulin Ratio 0.9 25-OH Vitamin D Total TSH 3.096 Urine Color Yellow Urine Appearance Clear Urine pH 6.5 Ur Specific [place] 1.005 Urine Protein Negative Urine Glucose (UA) Negative Urine Ketones Negative Urine Blood Negative Urine Nitrite Positive A Urine Bilirubin Negative Urine Urobilinogen Negative Ur Leukocyte Esterase 2+ H Urine WBC (Auto) 21-50 H Urine RBC (Auto) 0-2 U Hyaline Cast (Auto) 0-2 U Epithel Cells (Auto) 0-2 Urine Bacteria (Auto) 3+ H Urine Osmolality 216 L 03/21/24 03:41 WBC RBC Hgb Hct MCV MCH MCHC RDW Std Deviation RDW Coeff of Aleah Plt Count MPV Immature Gran % (Auto) Neut % (Auto) Lymph % (Auto) [place] % (Auto) Eos % (Auto) Baso % (Auto) Neut # (Auto) Lymph # (Auto) [place] # (Auto) Eos # (Auto) Baso # (Auto) Immature Gran # (Auto) PT 17.3 H INR 1.7 H APTT PTT Ratio Sodium 127 L Potassium 3.7 D Chloride 96 L Carbon Dioxide 22 Anion Gap 9 BUN 7 Creatinine 0.75 Est Cr Clr Drug Dosing 118.7 eGFR 100.77 BUN/Creatinine Ratio 9.3 L Glucose 98 Osmolality Calcium 8.2 L Magnesium 1.8 Total Bilirubin 6.7 H Direct Bilirubin 2.6 H AST 66 H ALT 32 Alkaline Phosphatase 114 H Ammonia Troponin I High Sens B-Natriuretic Peptide Total Protein 6.0 Albumin 2.8 L Globulin Albumin/Globulin Ratio 25-OH Vitamin D Total 10.9 L TSH Urine Color Urine Appearance Urine pH Ur Specific [place] Urine Protein Urine Glucose (UA) Urine Ketones Urine Blood Urine Nitrite Urine Bilirubin Urine Urobilinogen Ur Leukocyte Esterase Urine WBC (Auto) Urine RBC (Auto) U Hyaline Cast (Auto) U Epithel Cells (Auto) Urine Bacteria (Auto) Urine Osmolality PG Care Time/CCT Total # of Minutes Spent Total Time Spent with Patient: Total time spent is greater than 50% in coordination of care (as documented) at patient's floor/unit and/or counseling patient: Coding Level of Care Code 57506 IN/OBS CONSULT LVL 4,60M Diagnoses Liver cirrhosis K70.31 Ascites presence: with ascites Hepatic cirrhosis type: alcoholic cirrhosis (1) Liver cirrhosis Ascites presence: with ascites Hepatic cirrhosis type: alcoholic cirrhosis Qualified Code(s): K70.31 - Alcoholic cirrhosis of liver with ascites
[2024-03-21] MEDS: cefTRIAXone SODIUM 1,000 MG/50 ML BAG IV STA (12:10)
--- NOTE | 2024-03-21 13:59 | Ultrasound Report ---
US duplex portal hepatic veins CLINICAL HISTORY: Decompensated cirrhosis COMPARISON STUDY: 10/04/2019 FINDINGS: There is normal direction of flow in the portal vein and visualized hepatic veins. Cirrhoti c morphology of the liver is present. There is a small amount of ascites. IMPRESSION: Normal direction of flow in the portal vein and visualized hepatic veins. ACT 112: Negative or not required by law. Electronically signed by: Erick Dewitt M.D. 03/21/2024 1:58 PM
[2024-03-21] MEDS: DOXYCYCLINE HYCLATE 100 MG CAP PO SCH (15:29)
[2024-03-21] MEDS: SPIRONOLACTONE 100 MG TAB PO SCH (17:26)
[2024-03-21 17:38] LABS: BUN Creatinine Ratio 8.4 (10-20); Calcium 8.4 mg/dl (8.6-10.3); Creatinine Clr Calc Pharmacy 93.7 ml/min; Magnesium 1.9 mg/dl (1.7-2.4); Potassium 3.8 mmol/L (3.5-5.1)
[2024-03-21 18:15] LABS: Hep B Surface Ag with confirm Negative (Negative)
[2024-03-21 18:20] LABS: Hep C Ab Rflx HepCQuant RNA Negative (Negative)
--- NOTE | 2024-03-21 21:53 | Magnetic Resonance Report ---
Exam(s): MRI MRCP EXAM: MR Abdomen Without Intravenous Contrast, MRCP Protocol CLINICAL HISTORY: Reason for exam: elevated bili; cirrhosis. TECHNIQUE: Multiplanar magnetic resonance images of the abdomen without intravenous contrast using MRCP protocol. COMPARISON: No relevant prior studies available. FINDINGS: Bile ducts: No biliary ductal dilatation. Gallbladder: The gallbladder is contracted and shows mild gallbladder wall edema. No stones. Liver: The liver is cirrhotic and has lobulated outline. No intrahepatic or extrahepatic biliary ductal dilatation. Pancreas: Unremarkable. No ductal dilation. Spleen: Mild splenomegaly. Adrenals: Unremarkable. No mass. Kidneys and ureters: Unremarkable. No hydronephrosis. Intraperitoneal space: Large ascites. IMPRESSION: 1. No evidence of pancreatic or biliary ductal obstruction 2. Cirrhotic liver and large ascites. Electronically signed by: Roshan Talbot MD 03/21/24 21:52 PM
[2024-03-22 07:27] LABS: Albumin Globulin Ratio 1.4 (0.9-2); Albumin Level 3.4 gm/dl (3.4-5.0); BUN Creatinine Ratio 12.2 (10-20); Bilirubin,Total 6.2 mg/dl (0.2-1.0); Calcium 8.5 mg/dl (8.6-10.3); Creatinine Clr Calc Pharmacy 116.6 ml/min; Globulin 2.5 gm/dl (2.5-4.0); Potassium 4.2 mmol/L (3.5-5.1); Total Protein 5.9 gm/dl (6.0-8.3)
--- NOTE | 2024-03-22 09:28 | Hospitalist Progress Note ---
Date of Service March 22, 2024 Assessment & Plan (1) Decompensated cirrhosis: Plan: Good response to diuresis/albumin, I intend to continue albumin for 1 more day and monitor intake and output, liver function test, bilirubin are stable. Sodium is improved to 130 which is more reflective of general excess body fluid, proceed with 1 more day of Lasix/albumin. (2) Thrombocytopenia: Plan: Secondary to underlying liver disease. (3) Acute cystitis: Plan: Urinalysis was abnormal, urine culture was finalized at the staff aureus sensitive to tetracycline, continue with short course of 5-day doxycycline. (4) Vitamin D deficiency: Plan: Continue vitamin D supplement. Plan Continue with IV Lasix and albumin infusion for 1 more day, possible discharge tomorrow with resumption of home dose of Lasix and Aldactone. Admission and Anticipated Discharge Date Admission Date: March 20, 2024 Subjective Patient is a 63-year-old gentleman with history of liver cirrhosis, hypertension and history of esophageal varices with previous bleed who came in because of lower extremity edema which has been worse from the past, his LFT was found to be at baseline, when I saw him in the emergency room, he denied ever having had paracentesis, he usually takes Lasix but this has not been effective lately. he had about 4+ pedal edema up to mid thighs. Patient was treated with IV Lasix and albumin. He was seen and examined today, there has been some improvement in the lower extremity edema however I feel that at this point there is an element of venous insufficiency adding to the etiology of lower extremity edema, he is admitting that at home he uses compressive stocking. Physical Exam Physical Exam: VITALS: Reviewed. WEIGHT/BMI reviewed. GEN: Healthy appearing, well-developed, NAD. CV: RRR, no m/r/g. LUNGS: CTAB, no w/r/c. ABD: Soft, NT/ND, NBS, no masses or organomegaly. : N/A EXT: No clubbing, cyanosis, swelling is better in both lower extremities, now it is limited probably distal to mid joseph bilaterally Results & Data Results & Data Vital Signs (Past 12 Hours) Vital Signs Temp Pulse Pulse Resp BP Pulse Ox O2 Del Method 03/22/24 07:38 36.8 C 87 18 109/66 93 Room Air 03/22/24 05:42 96 H 03/22/24 02:53 36.5 C 92 H 18 108/54 L 97 Room Air 03/21/24 23:04 36.7 C 98 H 18 129/79 96 Room Air 03/21/24 21:48 110 H Laboratory Results Laboratory Results - last 24 hr 03/21/24 03/22/24 17:00 06:27 Sodium 128 L 130 L Potassium 3.8 4.2 Chloride 98 100 Carbon Dioxide 25 25 Anion Gap 5 5 BUN 8 9 Creatinine 0.95 0.74 Est Cr Clr Drug Dosing 93.7 116.6 eGFR 89.38 101.18 BUN/Creatinine Ratio 8.4 L 12.2 Glucose 126 H 93 Calcium 8.4 L 8.5 L Magnesium 1.9 Total Bilirubin 6.2 H AST 48 H ALT 23 Alkaline Phosphatase 90 Total Protein 5.9 L Albumin 3.4 Globulin 2.5 Albumin/Globulin Ratio 1.4 Tumor Marker AFP Pending PHONG Screen Pending Anti-Mitochondrial Ab Pending Anti-Smooth Muscle Ab Pending Hepatitis A IgM Ab Pending Hep Bs Antigen Negative Hep B Core IgM Ab Pending Hepatitis C Antibody Negative Diagnostic Findings Portal Vein US 03/21/24 10:52 US duplex portal hepatic veins CLINICAL HISTORY: Decompensated cirrhosis COMPARISON STUDY: 10/04/2019 FINDINGS: There is normal direction of flow in the portal vein and visualized hepatic veins. Cirrhotic morphology of the liver is present. There is a small amount of ascites. IMPRESSION: Normal direction of flow in the portal vein and visualized hepatic veins. ACT 112: Negative or not required by law. Electronically signed by: Erick Dewitt M.D. 03/21/2024 1:58 PM Cholangiopancreatography MRI 03/21/24 12:52 Exam(s): MRI MRCP EXAM: MR Abdomen Without Intravenous Contrast, MRCP Protocol CLINICAL HISTORY: Reason for exam: elevated bili; cirrhosis. TECHNIQUE: Multiplanar magnetic resonance images of the abdomen without intravenous contrast using MRCP protocol. COMPARISON: No relevant prior studies available. FINDINGS: Bile ducts: No biliary ductal dilatation. Gallbladder: The gallbladder is contracted and shows mild gallbladder wall edema. No stones. Liver: The liver is cirrhotic and has lobulated outline. No intrahepatic or extrahepatic biliary ductal dilatation. Pancreas: Unremarkable. No ductal dilation. Spleen: Mild splenomegaly. Adrenals: Unremarkable. No mass. Kidneys and ureters: Unremarkable. No hydronephrosis. Intraperitoneal space: Large ascites. IMPRESSION: 1. No evidence of pancreatic or biliary ductal obstruction 2. Cirrhotic liver and large ascites. Electronically signed by: Roshan Talbot MD 03/21/24 21:52 PM Medications Administered Current Inpatient Medications Acetaminophen (Acetaminophen 500 Mg Tab) 500 mg PO Q6H PRN PRN Reason: Pain or Fever Stop: 04/19/24 19:28 Doxycycline Hyclate (Doxycycline Hyclate 100 Mg Cap) 100 mg PO BID [facility] Stop: 03/23/24 13:45 Last Admin: 03/22/24 07:18 Dose: 100 mg Furosemide (Furosemide 40 Mg/4 Ml Vial) 40 mg IV BIDR RONI Stop: 04/19/24 19:28 Last Admin: 03/22/24 06:14 Dose: 40 mg Albumin Human (Albumin 25%) 25 gm in 100 mls @ 50 mls/hr IV Q6 RONI Stop: 03/24/24 07:21 Last Infusion: 03/22/24 08:47 Dose: Infused Magnesium Chloride (Magnesium Chloride W/Calcium 64mg Delayed Rel Tab) 64 mg PO BID RONI Stop: 04/19/24 20:59 Last Admin: 03/22/24 07:18 Dose: 64 mg Polyethylene Glycol (Polyethylene (Miralax) 17 Gm Pack) 17 gm PO DAILY PRN PRN Reason: Constipation Stop: 04/19/24 19:28 Potassium Chloride (Potassium Chloride Crtab 20 Meq Tabcr) 40 meq PO BIDM [facility] Stop: 04/19/24 21:14 Last Admin: 03/22/24 07:20 Dose: 40 meq Spironolactone (Spironolactone 100 Mg Tab) 100 mg PO BID17 [facility] Stop: 04/20/24 16:59 Last Admin: 03/22/24 07:17 Dose: 100 mg Vitamin D (Cholecalciferol 125 Mcg (5,000 Units) Tab) 125 mcg PO QAM RONI Stop: 04/20/24 08:59 Last Admin: 03/22/24 08:52 Dose: 125 mcg (3) Acute cystitis Hematuria presence: without hematuria Qualified Code(s): N30.00 - Acute cystitis without hematuria
--- NOTE | 2024-03-22 10:35 | Gastroenterology Progress Note ---
Date of Service March 22, 2024 Assessment & Plan (1) Decompensated cirrhosis: Plan: -MRI liver shows large volume ascites--Patient declines paracentesis with fluid studies at this time -Continue diuretic adjustments with Lasix 40 mg BID; Continue Aldactone 100 mg BID. -Continue alcohol abstinence -Avoid NSAIDs; limit Tylenol to <2000 mg daily in q 6 hour prn divided doses -Limit sodium to <2000 mg daily -Continue to monitor daily CMP & INR for MELD calculations; awaiting today's INR to calculate -Will need outpatient HCC surveillance with AFP and liver imaging q 6 months; AFP ordered and pending -Comprehensive infectious hepatitis studies, PHONG, AMA, ASMA pending -Will need to update EGD for variceal surveillance as outpatient as well Please ensure patient is arranged with [facility] upon discharge--this process was previously set in motion by his PCP according to the patient. Admission and Anticipated Discharge Date Admission Date: March 20, 2024 Supervising Physician Co-Signing Physician Notes I saw and examined this patient with our nurse practitioner and agree with her assessment and plan. Clinically feels better today. Less lower extremity edema and abdominal girth. MRI cirrhotic liver no signs of masses and normal biliary tree. Portal vein showed normal directional flow. Continue diuretic therapy and monitor BUN and creatinine. Recommend having dietitian educate patient on 2 g sodium diet. Patient refusing paracentesis for diagnostic purposes. Low suspicion for SBP. Subjective Patient is a 63 yo male with cirrhosis. Awaiting morning INR for his MELD calculation today. He notes that his edema is improving significantly. He had an MR/MRCP on 03/21/24 that did not show any acute issues outside of his known cirrhosis and large volume ascites. The patient is taking Aldactone 100 mg BID & Lasix 40 mg BID IV. He notes that he is not interested in having a paracentesis. He is moving his bowels. He denies other issues. Review of Systems Cardiovascular: + edema Gastrointestinal: no abdominal pain Physical Exam Constitutional: well developed Respiratory: normal respiratory effort Cardiovascular: Extremities: + edema Gastrointestinal (Abdomen): Inspection/Auscultation: + abdomen distended large hernia making it difficult to appreciate ascites seen on MRI Results & Data Results & Data Vital Signs (Past 12 Hours) Vital Signs Temp Pulse Pulse Resp BP Pulse Ox O2 Del Method 03/22/24 10:04 Room Air 03/22/24 07:38 36.8 C 87 18 109/66 93 Room Air 03/22/24 05:42 96 H 03/22/24 02:53 36.5 C 92 H 18 108/54 L 97 Room Air 03/21/24 23:04 36.7 C 98 H 18 129/79 96 Room Air Laboratory Results Laboratory Results - last 48 hr 03/20/24 03/20/24 03/20/24 14:27 18:57 Unknown WBC 9.15 RBC 3.46 L Hgb 12.1 L Hct 34.1 L MCV 98.6 MCH 35.0 H MCHC 35.5 RDW Std Deviation 53.1 H RDW Coeff of [place] 14.6 H Plt Count 70 L MPV 10.0 Immature Gran % (Auto) 0.8 Neut % (Auto) 72.8 Lymph % (Auto) 16.1 [place] % (Auto) 9.3 Eos % (Auto) 0.5 Baso % (Auto) 0.5 Neut # (Auto) 6.66 H Lymph # (Auto) 1.47 [place] # (Auto) 0.85 H Eos # (Auto) 0.05 Baso # (Auto) 0.05 Immature Gran # (Auto) 0.07 PT 16.6 H INR 1.6 H APTT 32 H PTT Ratio 1.2 Sodium 127 L Potassium 3.0 L Chloride 95 L Carbon Dioxide 23 Anion Gap 9 BUN 6 Creatinine 0.76 Est Cr Clr Drug Dosing 117.1 eGFR 100.37 BUN/Creatinine Ratio 7.9 L Glucose 144 H Osmolality 274 L Calcium 8.4 L Magnesium 1.5 L Total Bilirubin 7.1 H Direct Bilirubin AST 68 H ALT 33 Alkaline Phosphatase 123 H Ammonia 27.0 Troponin I High Sens 7.9 B-Natriuretic Peptide 45 Total Protein 6.4 Albumin 3.0 L Globulin 3.4 Albumin/Globulin Ratio 0.9 25-OH Vitamin D Total TSH 3.096 Urine Color Yellow Urine Appearance Clear Urine pH 6.5 Ur Specific [place] 1.005 Urine Protein Negative Urine Glucose (UA) Negative Urine Ketones Negative Urine Blood Negative Urine Nitrite Positive A Urine Bilirubin Negative Urine Urobilinogen Negative Ur Leukocyte Esterase 2+ H Urine WBC (Auto) 21-50 H Urine RBC (Auto) 0-2 U Hyaline Cast (Auto) 0-2 U Epithel Cells (Auto) 0-2 Urine Bacteria (Auto) 3+ H Urine Osmolality 216 L Hep Bs Antigen Hepatitis C Antibody 03/21/24 03/21/24 03/22/24 03:41 17:00 06:27 WBC RBC Hgb Hct MCV MCH MCHC RDW Std Deviation RDW Coeff of [place]ah Plt Count MPV Immature Gran % (Auto) Neut % (Auto) Lymph % (Auto) [place] % (Auto) Eos % (Auto) Baso % (Auto) Neut # (Auto) Lymph # (Auto) [place] # (Auto) Eos # (Auto) Baso # (Auto) Immature Gran # (Auto) PT 17.3 H INR 1.7 H APTT PTT Ratio Sodium 127 L 128 L 130 L Potassium 3.7 D 3.8 4.2 Chloride 96 L 98 100 Carbon Dioxide 22 25 25 Anion Gap 9 5 5 BUN 7 8 9 Creatinine 0.75 0.95 0.74 Est Cr Clr Drug Dosing 118.7 93.7 116.6 eGFR 100.77 89.38 101.18 BUN/Creatinine Ratio 9.3 L 8.4 L 12.2 Glucose 98 126 H 93 Osmolality Calcium 8.2 L 8.4 L 8.5 L Magnesium 1.8 1.9 Total Bilirubin 6.7 H 6.2 H Direct Bilirubin 2.6 H AST 66 H 48 H ALT 32 23 Alkaline Phosphatase 114 H 90 Ammonia Troponin I High Sens B-Natriuretic Peptide Total Protein 6.0 5.9 L Albumin 2.8 L 3.4 Globulin 2.5 Albumin/Globulin Ratio 1.4 25-OH Vitamin D Total 10.9 L TSH Urine Color Urine Appearance Urine pH Ur Specific [place] Urine Protein Urine Glucose (UA) Urine Ketones Urine Blood Urine Nitrite Urine Bilirubin Urine Urobilinogen Ur Leukocyte Esterase Urine WBC (Auto) Urine RBC (Auto) U Hyaline Cast (Auto) U Epithel Cells (Auto) Urine Bacteria (Auto) Urine Osmolality Hep Bs Antigen Negative Hepatitis C Antibody Negative PG Care Time/CCT Total # of Minutes Spent Total Time Spent with Patient: Total time spent is greater than 50% in coordination of care (as documented) at patient's floor/unit and/or counseling patient: Coding Level of Care Code 60489 SUB INP/OBS CARE 3/50MIN Diagnoses Decompensated cirrhosis K72.90; K74.60
[2024-03-22 15:18] LABS: INR 1.8 (0.9-1.1); Prothrombin Time 18.9 Seconds (9.0-12.0)
[2024-03-22 17:23] LABS: BUN Creatinine Ratio 12.8 (10-20); Calcium 9.1 mg/dl (8.6-10.3); Creatinine Clr Calc Pharmacy 110.6 ml/min; Potassium 4.1 mmol/L (3.5-5.1)
[2024-03-23 07:05] LABS: BUN Creatinine Ratio 17.6 (10-20); Calcium 9.3 mg/dl (8.6-10.3); Creatinine Clr Calc Pharmacy 115.2 ml/min; Potassium 4.5 mmol/L (3.5-5.1)
[2024-03-23 07:45] VITALS: RESP 18; TEMP 97.9; O2SAT 98
[2024-03-23 09:10] VITALS: BP 109/66
--- NOTE | 2024-03-23 09:12 | Discharge Summary ---
Discharge Summary Date of Service March 23, 2024 Principal Dx & Hospital Course #1 = Principal Diagnosis (1) Decompensated cirrhosis: (2) Thrombocytopenia: (3) Acute cystitis: (4) Vitamin D deficiency: Notes For Next Care Provider Medication Changes From Visit Doxycycline 100 mg twice daily for 5 days Vitamin D supplement Admission HPI Per Admitting Provider Patient is a 63-year-old gentleman with history of liver cirrhosis, hypertension and history of esophageal varices with previous bleed who came in because of lower extremity edema which has been worse from the past, his LFT was found to be at baseline, when I saw him in the emergency room, he denied ever having had paracentesis, he usually takes Lasix but this has not been effective lately. he had about 4+ pedal edema up to mid thighs. Patient was treated with IV Lasix and albumin. On the second day of treatment, only over the past 12 hours patient was showing -2900 mL negative balance, on examination today his legs appear to be much better, JAMEEL hose was started yesterday and is doing a good job. We again spoke about the dose of his diuretic and and seems that at home he is on 60 mg daily, it was increased 2 weeks ago by his physician, I recommended not to stay on this dose for a long and after 1 to 2-week treatment, to consult his physician to see if the dose needs to be increased, his main issue is due to his hypoalbuminemia. During this visit, patient was seen by gastroenterology, patient was checked for hepatitis panel, anti-smooth muscle antibody, antinuclear antibody and antimitochondrial antibody. He tells me that he has a regular c web developer that he is supposed to see. From the test that were ordered, HBs antigen and HCV antibody are negative, the rest including immunology are pending. At this time patient will be discharged home back on Lasix 60 mg daily, reevaluate in 1 week by his physician to see if the dose needs to be increased, I recommended continue using JAMEEL hose. Discharge Exam VITALS: Reviewed. WEIGHT/BMI reviewed. GEN: Healthy appearing, well-developed, NAD. CV: RRR, no m/r/g. ABD: Soft, NT/ND, NBS, no masses or organomegaly. : N/A EXT: Lower extremity appears better specially after JAMEEL hose. Updated Medication List Medication Instructions Recorded Confirmed Type folic acid 400 mcg tablet 400 mcg PO QAM 30 days #30 tabs 10/07/19 03/20/24 Rx furosemide 40 mg tablet 40 mg PO QAM 30 days #30 tabs 10/07/19 03/20/24 Rx spironolactone 100 mg tablet 100 mg PO QAM 30 days #30 tabs 10/07/19 03/20/24 Rx thiamine HCl (vitamin B1) 100 mg 100 mg PO QAM 30 days #30 tabs 10/07/19 03/20/24 Rx tablet (Vitamin B-1) doxycycline hyclate 100 mg capsule 100 mg PO BID 5 days #10 caps 03/23/24 Rx Hospital Stay Data Consultations 03/20/24 16:54 ED Decision to Admit Stat 03/21/24 09:00 Consult Gastroenterology Routine Diagnostic Imagining Performed 03/20/24 14:57 US venous doppler LE BI Stat 03/20/24 16:57 US abdomen ltd ascites Routine 03/21/24 10:52 US duplex portal hepatic veins Routine 03/21/24 12:52 MR MRCP Routine Pending Results Patient Have Any Pending Studies at Discharge: No Discharge Instructions Given to Patient (Per Discharging Provider) Patient does seem to have been scheduled to see c web developer as outpatient, additional workup here done and can be followed up He was recommended to remain on his home dose of Lasix 60 mg daily with follow- up in 1 to 2 weeks(apparently he has been on this dose only for 2 weeks) after that in case of inadequate response, he can reach his home inspector to increase the dose Total Time Total Time Spent Total Time Spent (In Minutes): More than 35-minute
[2024-03-23 09:32] LABS: Hepatitis A Antibody IgM NON-REACTIVE (NON-REACTIVE); Hepatitis B Core Antibody IgM NON-REACTIVE (NON-REACTIVE)
[2024-03-23 09:46] VITALS: PULSE 110
[2024-03-23 14:32] LABS: AFP Tumor Marker Serum 3.9 ng/mL (<6.1); Anti Mitochondrial Antibody NEGATIVE (NEGATIVE); Anti Nuclear Antibody Screen NEGATIVE (NEGATIVE); Smooth Muscle Antibody NEGATIVE (NEGATIVE)
== END 2024-03-23 11:27 | disposition home or self-care (01) | DRG 433 ==
LOC: ED 14:17 → EDINP 17:25 → SUATTDRO 17:25 → 2N 19:28